=== PATIENT | male | born 1945 | race Caucasian/White ===

== ENCOUNTER → 2016-10-01 | Outpatient (CLI) | payer OTHER | LOC: MMPC 10:00 | PROVIDERS: ATTEND Specialist | DX: Z01.810 Encounter for preprocedural cardiovascular examination (principal); M16.11 Unilateral primary osteoarthritis, right hip; I25.10 Atherosclerotic heart disease of native coronary artery without angina pectoris; Z95.5 Presence of coronary angioplasty implant and graft; J44.9 Chronic obstructive pulmonary disease, unspecified; Z99.81 Dependence on supplemental oxygen; I35.8 Other nonrheumatic aortic valve disorders | CPT/HCPCS: 99213; G0463 ==

== ENCOUNTER 2016-10-25 11:26 | Emergency (ER) | payer OTHER ==
[2016-10-25] MEDS ORDERED: NORMAL SALINE 10 ML SYRINGE FLUSH IVP PRN (11:52)
[2016-10-25 12:02] VITALS: RESP 22; TEMP 97.2
[2016-10-25] MEDS ORDERED: LIDOCAINE HCL 2 % 10 ML JELLY URO-JECT TOPICAL ONE (12:03)
[2016-10-25 12:17] LABS: BASOPHILS # (AUTO) 0.01 10*3/UL; BASOPHILS % (AUTO) 0.2 % (0-1); EOSINOPHILS % (AUTO) 4.2 % (0-8); HEMATOCRIT 32.5 % (42.0-52.0); HEMOGLOBIN 10.2 g/dL (14.0-18.0); IMM GRAN % (AUTO) 0.2 % (0-5); IMM GRAN# (AUTO) 0.01 10*3/UL; LYMPHOCYTES # (AUTO) 0.97 10*3/uL; LYMPHOCYTES % (AUTO) 17.1 % (10-50); MEAN CORPUSCULAR HEMOGLOBIN 29.3 PG (27-31); MEAN CORPUSCULAR HGB CONC 31.4 g/dL (33-37); MEAN PLATELET VOLUME 7.6 FL (7.4-12.2); MONOCYTES # (AUTO) 0.68 10*3/UL (0.3-0.8); NEUTROPHILS # (AUTO) 3.75 10*3/UL; NEUTROPHILS % (AUTO) 66.3 % (50-80); RDW COEFFICIENT OF VARIATION 13.2 % (11.5-14.5); RED BLOOD COUNT 3.48 10^6/uL (4.70-6.10); WHITE BLOOD COUNT 5.66 10^3/uL (4.8-10.8)
[2016-10-25 12:19] LABS: PLATELET MORPHOLOGY COMMENT NORMAL MORPHOLOGY (NORM)
[2016-10-25 12:28] LABS: BILIRUBIN,TOTAL 0.5 mg/dL (0.3-1.2); BUN/CREATININE RATIO 12.85 (6-20); CALCIUM 8.9 mg/dL (8.7-10.7); CREATININE 0.7 mg/dL (0.70-1.50); POTASSIUM 4.3 meq/L (3.8-5.2); TOTAL PROTEIN 6.4 g/dL (6.1-8.0)
[2016-10-25 13:37] LABS: BILIRUBIN,URINE NEGATIVE (NEG); CLARITY,URINE CLEAR (CLEAR); GLUCOSE, URINE (UA) NEGATIVE (NEG); LEUKOCYTE ESTERASE ,URINE NEGATIVE (NEG); NITRATE,URINE NEGATIVE (NEG); OCCULT BLOOD,URINE NEGATIVE (NEG); PROTEIN,URINE NEGATIVE (NEG); UROBILINOGEN,URINE 0.2 EU/dL (0.2)
[2016-10-25 13:41] LABS: URINE SAMPLE TYPE CLEAN CATCH URINE
--- NOTE | 2016-10-26 01:42 | PDOC ---
Male Genitourinary Problem HPI - General Chief Complaint: Genitourinary Complaint Stated Complaint: NOT VOIDING Date Seen by Provider: 10/25/16 Time Seen by Provider: 11:33 Source: POSITIVE: Patient, Spouse Exam Limitations: POSITIVE: No limitations Nurse's Notes Reviewed & Considered: Yes - History of Present Illness Initial Comments: The patient is a 71-year-old male. Patient states that for the past 2 days, approximately, he has had difficulty urinating and he states that he has been "being just a little bit". He states he has a history of prostatic hypertrophy. He also has a history of Parkinson's disease and COPD. He thinks he is getting distended in the suprapubic area. No real abdominal pain. No fevers or chills. No costophrenic pain. No nausea, vomiting, dysuria, hematuria, melena, hematochezia or hematemesis. He states he has he urge to urinate, but has difficulty doing so. Body Location Affected: REPORTS: Abdomen Timing: REPORTS: Gradual Duration: >24 hours (48 hours, approximately) Severity: Moderate Quality: REPORTS: Pressure (Suprapubic pressure and distention) Context: DENIES: Drug Use, Lifting, Trauma, Recent Surgery, Other (please comment) Sexual History: DENIES: Non-Contributory, Homosexual, Unprotected [place], Known Exposure to STD, Other Associated Symptoms: REPORTS: Problems Urinating, Hesitancy, Small Amounts, Abdominal Pain (Suprapubic pressure). DENIES: Blood in Urine Similar Symptoms Previously: No Recent Care Received: REPORTS: Denies Any Prior Injuries Related to Current Complaint?: No - Patient Home Medications Home Medications: Home Medications Albuterol Sulfate [ALBUTEROL HFA] 2 inh PO QID PRN 09/11/11 Aspirin 1 tab PO DAILY 09/11/11 Calcium Carbonate/Vitamin D3 [Calcium 600 with Vit D Tab] 1 tab PO TID 09/11/11 Clopidogrel [Plavix] 1 tab PO DAILY 09/11/11 Nitroglycerin SL Tab [Nitrostat SL Tab] 0.4 mg SL Q5M PRN MDD 3 09/11/11 Simvastatin [Zocor] 40 mg PO BEDTIME 09/11/11 Terazosin HCl 5 mg PO BEDTIME 09/11/11 Tiotropium [place] [Spiriva] 1 inh INH DAILY@1900 09/11/11 Venlafaxine HCl 150 mg PO DAILY #90 08/10/12 Albuterol Sulfate 3 ml NEB QID 90 Days 05/12/13 Budesonide/Formoterol Fumarate [Symbicort 160-4.5 Mcg Inhaler] 2 puff INH BID 30 Days 10/20/13 Sennosides [Senna] 1 cap PO BID 30 Days 10/20/13 Metoprolol Tartrate Tab [Lopressor Tab] 25 mg PO BID 11/01/13 Ferrous Gluconate [Fergon] 324 mg PO BID 01/12/15 Guaifenesin [Mucus Relief] 600 mg PO DAILY 01/12/15 Multivitamin [Multi-Vitamin Daily] 1 each PO QD 30 Days NS 04/12/15 Isosorbide Mononitrate [Isosorbide Mononitrate Er] 30 mg PO DAILY #90 tab Polyeth Glycol 3350 Packet [Miralax Packet] 17 gm PO DAILY PRN 01/19/16 Gabapentin 1 tab PO TID tab 05/09/16 Hydrocodone/Acetaminophen [Hydrocodon-Acetaminophn 10-325] 1 tab PO QID PRN # 150 tab 07/31/16 - Patient Allergies Allergies/Adverse Reactions: Allergies Allergy/AdvReac Type Severity Reaction Status Date / Time No Known Drug Allergies Allergy NOT Verified 10/25/16 12:07 APPLICABLE PAIN CONTRACT AdvReac Unknown NOT Uncoded 10/25/16 12:07 APPLICABLE Past Medical History - heen HEENT History: Other (please comment) Additional HEENT History: WEARS GLASSES Cardiovascular History: CHF, CAD, Hyperlipidemia Additional Cardiovasular History: 3 stents 2005 Respiratory History: COPD, Pneumonia, Home Oxygen Use Additional Respiratory History: O2 @ 3.5l/nc Gastrointestinal History: GERD, Other (please comment) Additional Gastrointestinal History: chronic constipation Genitourinary History: Kidney Stones, Polycystic Kidney Disease, Other (please comment) Additional Genitourinary History: BPH Endocrine History: Denies History Musculoskeletal History: Other (please comment) Prosthesis or Implant: Yes (CARDIAC STENTS) Additional Musculoskeletal History: chronic pain: lumbar pain secondary to disc problems, hip that is deteriorating, 5 HERNIATED DISCS Neurological History: TIA, Parkinson's Blood Disorders: Denies History Psychiatric History: Depression, PTSD History of Sexually Transmitted Diseases: No Cancer History: Denies History In Past Year Been Physically Harmed or Verbally Threatened: No History of MDRO: No History of Other Communicable Diseases: No Tobacco Use: Never Smoker Alcohol Use: None Substance Use Type: None, Opiate Pain Medication Previous Surgical History: Yes Type / Date of Surgery: APPENDECTOMY/ CORONARY STENT X 3 IN 2006 Anesthesia Reactions: No Malignant Hyperthermia: No Family History of Malignant Hyperthermia: No Significant Family History: No pertinent family hx Past Medical History Reviewed: Reviewed - No Changes ROS - Limitations ROS Limitations: No Limitations Constitution: REPORTS: Denies Symptoms Cardiovascular: REPORTS: Denies Cardiac Symptoms Respiratory: REPORTS: Denies Resp Symptoms Neurological: REPORTS: Denies Neuro Symptoms Gastrointestinal: REPORTS: Denies GI Symptoms Endocrine: REPORTS: Denies Symptoms Musculoskeletal: REPORTS: Denies MS Symptoms Genitourinary: REPORTS: Difficulty Urinating Eyes: REPORTS: Denies Symptoms ENT: REPORTS: Denies Symptoms Skin: REPORTS: Denies Skin Symptoms Lympathic: REPORTS: Denies Lympathic Symptoms Immunologic: POSITIVE: Denies Symptoms Psychiatric: POSITIVE: Denies Psych Symptoms Male Genitourinary Exam - General Appearance General Appearance: POSITIVE: Alert, Cooperative, No Acute Distress, No Evidence of Trauma - Abdomen Abdomen: Soft: (All Quadrants), Normal Bowel Sounds: (All Quadrants), Denies Tenderness: (All Quadrants), No Splenomegaly: (All Quadrants), No Hepatomegaly: (All Quadrants), No Guarding: (All Quadrants), No Rebound: (All Quadrants), No Palpable Pulse: (All Quadrants), No Palpabale Mass: (All Quadrants) Additional Details: Abdominal examination shows bowel sounds be present. The bladder is palpably distended and he has some mild discomfort on firm palpation over the bladder. Bladder scan shows in excess of 476 mL of urine in the bladder. - Genital / Rectal Genitals: POSITIVE: Normal Inspection, Normal Palp. of Testicles, Circumcised - Neck Neck: POSITIVE: Normal Inspection, No Apparent Injury - Respiratory Respiratory: POSITIVE: No Respiratory Distress, Breath Sounds Normal, Chest Non- Tender - Cardiovascular Cardiovascular: POSITIVE: Regular Rate and Rhythm, Heart Sounds Normal, Equal Pulses, Strong Pulses Peripheral Pulses: Radial (R): 2+, Radial (L): 2+ - Back Back: POSITIVE: Normal Inspection - Extremities Extremity: Non-Tender: (All Extremities), Normal ROM: (All Extremities), Normal Inspection: (All Extremities) - Neurological / Psychological Neurological: POSITIVE: Oriented X3, recreation therapy director Normal As Tested, Motor Normal, Sensation Normal, 5, 6 - Skin Skin: POSITIVE: Intact, Normal For Race, Warm, Dry, No Rash Procedure - Additional Procedures Additional Procedures: Smith Catheter (Smith catheter placed without much difficulty with return of in excess of 500 mL of clear urine. Patient feels much better after ladders drained. Patient discharged with leg bag.) Images - Complete Complete: 1 - Bladder distention Male Genitourinary Progress - Results Reviewed by me Lab Results Reviewed: Yes Lab Results: Laboratory Results 10/25/16 10/25/16 Range/Units 12:14 12:52 WBC 5.66 (4.8-10.8) 10^3/uL RBC 3.48 L (4.70-6.10) 10^6/uL Hgb 10.2 L (14.0-18.0) g/dL Hct 32.5 L (42.0-52.0) % MCV 93.4 H (80-90) FL MCH 29.3 (27-31) PG MCHC 31.4 L (33-37) g/dL RDW Std Deviation 43.5 (39-50) fL RDW Coeff of Robert 13.2 (11.5-14.5) % Plt Count 255 (140-350) 10*3/uL MPV 7.6 (7.4-12.2) FL Immature Gran % (Auto) 0.2 (0-5) % Neut % (Auto) 66.3 (50-80) % Lymph % (Auto) 17.1 (10-50) % [place] % (Auto) 12.0 (5-15) % Eos % (Auto) 4.2 (0-8) % Baso % (Auto) 0.2 (0-1) % Immature Gran # (Auto) 0.01 10*3/UL Neut # (Auto) 3.75 10*3/UL Lymph # (Auto) 0.97 10*3/uL [place] # (Auto) 0.68 (0.3-0.8) 10*3/UL Eos # (Auto) 0.24 10*3/UL Baso # (Auto) 0.01 10*3/UL WBC Morphology Comment Normal morphology (NORM) Plt Morphology Comment Normal morphology (NORM) RBC Morph Comment Normal morphology (NORM) Sodium 140 (135-145) meq/L Potassium 4.3 (3.8-5.2) meq/L Chloride 102 (98-112) meq/L Carbon Dioxide 29 (23-33) meq/L Anion Gap 9 (5-20) BUN 9 (7-22) mg/dL Creatinine 0.7 (0.70-1.50) mg/dL Estimated GFR (>60 ml/min/1.73m(2)) BUN/Creatinine Ratio 12.85 (6-20) Glucose 78 (78-110) mg/dL Calculated Osmolality 287.0 (267-292) mOsm/kg Calcium 8.9 (8.7-10.7) mg/dL Total Bilirubin 0.5 (0.3-1.2) mg/dL AST 28 (21-57) IU/L ALT 23 (21-72) IU/L Alkaline Phosphatase 58 (38-126) IU/L Total Protein 6.4 (6.1-8.0) g/dL Albumin 3.6 (3.5-4.8) g/dL Globulin 2.8 (2.50-4.10) g/dL Albumin/Globulin Ratio 1.20 L (1.3-2.0) mg/g Ur Collection Type Clean catch urine Urine Color Yellow Urine Clarity Clear (CLEAR) Urine pH 6.0 (5.0-8.5) Ur Specific [place] 1.010 (1.005-1.030) Urine Protein Negative (NEG) mg/dl Urine Glucose (UA) Negative (NEG) mg/dL Urine Ketones Negative (NEG) Urine Occult Blood Negative (NEG) Urine Nitrate Negative (NEG) Urine Bilirubin Negative (NEG) Urine Urobilinogen 0.2 (0.2) EU/dL Ur Leukocyte Esterase Negative (NEG) Ur Culture Indicated? Culture not set - Patient's Progress Pain Medication Addressed: POSITIVE: Not Applicable School/Work Release Addressed: POSITIVE: Not Applicable Re-Examine Time:: 14:00 Re-Examine Comment: Patient feels much better after acute urinary retention relieved Status: POSITIVE: Improved, Re-Examined - Consult Counseled: POSITIVE: Patient, Family, RE: Lab Results, RE: DX, RE: Need for F/U Patient Care Time - Estimated PCT Patient Care Time (In Minutes): 40 Vital Signs - VS Reviewed Vital Signs Reviewed: Yes Discharge Clinical Impression: Acute urinary retention Discharge Disposition: Discharged to Home Condition: Good Patient Instructions Given at Discharge: Urinary Retention in Men (ED) Additional Instructions: You had acute urinary retention, probably due to prosthetic hypertrophy. Please keep the Smith catheter in place until Friday. Follow-up with Dr. Umanzor Friday, who will probably remove the catheter at that time. He may also give you a referral to urology. Continue your present medications. Return here anytime if condition worsens in any way. Follow Up With: CASSIE UMANZOR [Primary Care Provider] - (Instructions as above. Follow-up with Dr. Umanzor as above. Return here anytime if condition worsens in any way.)
== END 2016-10-25 15:05 | disposition home or self-care (01) ==
LOC: ER 11:26
DX: R33.8 Other retention of urine (principal)
CPT/HCPCS: 80053; 81003; 85025; 99282

== ENCOUNTER 2016-10-26 14:13 | Emergency (ER) | payer OTHER ==
[2016-10-26] MEDS ORDERED: LIDOCAINE HCL 2 % 10 ML JELLY URO-JECT TOPICAL ONE (14:24)
--- NOTE | 2016-10-26 14:30 | PDOC ---
Male Genitourinary Problem HPI - General Chief Complaint: Genitourinary Complaint Stated Complaint: URINARY RETENTION x2-3 DAYS Date Seen by Provider: 10/26/16 Time Seen by Provider: 14:25 Source: POSITIVE: Patient Exam Limitations: POSITIVE: No limitations Nurse's Notes Reviewed & Considered: Yes - History of Present Illness Initial Comments: Patient comes in because of urinary retention. Patient was seen in the emergency department yesterday with urinary retention. A Smith catheter was placed and he was sent home. He subsequently developed hematuria and came back to the emergency department last night. His Smith was at that time removed. Now he has return of his urinary retention and is unable to void. He denies any fever chills or sweats, nausea vomiting or diarrhea, no chest pain, shortness of breath, or cough. Body Location Affected: REPORTS: Abdomen Timing: REPORTS: Constant Duration: >24 hours Severity: Moderate Sexual History: REPORTS: Non-Contributory Associated Symptoms: REPORTS: Problems Urinating, Unable to Urinate Similar Symptoms Previously: Yes Recent Care Received: REPORTS: Recently Seen, Treated by MD Any Prior Injuries Related to Current Complaint?: No - Patient Home Medications Home Medications: Home Medications Albuterol Sulfate [ALBUTEROL HFA] 2 inh PO QID PRN 09/11/11 Aspirin 1 tab PO DAILY 09/11/11 Calcium Carbonate/Vitamin D3 [Calcium 600 with Vit D Tab] 1 tab PO TID 09/11/11 Clopidogrel [Plavix] 1 tab PO DAILY 09/11/11 Nitroglycerin SL Tab [Nitrostat SL Tab] 0.4 mg SL Q5M PRN MDD 3 09/11/11 Simvastatin [Zocor] 40 mg PO BEDTIME 09/11/11 Terazosin HCl 5 mg PO BEDTIME 09/11/11 Tiotropium [place] [Spiriva] 1 inh INH DAILY@1900 09/11/11 Venlafaxine HCl 150 mg PO DAILY #90 08/10/12 Albuterol Sulfate 3 ml NEB QID 90 Days 05/12/13 Budesonide/Formoterol Fumarate [Symbicort 160-4.5 Mcg Inhaler] 2 puff INH BID 30 Days 10/20/13 Sennosides [Senna] 1 cap PO BID 30 Days 10/20/13 Metoprolol Tartrate Tab [Lopressor Tab] 25 mg PO BID 11/01/13 Ferrous Gluconate [Fergon] 324 mg PO BID 01/12/15 Guaifenesin [Mucus Relief] 600 mg PO DAILY 01/12/15 Multivitamin [Multi-Vitamin Daily] 1 each PO QD 30 Days NS 04/12/15 Isosorbide Mononitrate [Isosorbide Mononitrate Er] 30 mg PO DAILY #90 tab Polyeth Glycol 3350 Packet [Miralax Packet] 17 gm PO DAILY PRN 01/19/16 Gabapentin 1 tab PO TID tab 05/09/16 Hydrocodone/Acetaminophen [Hydrocodon-Acetaminophn 10-325] 1 tab PO QID PRN # 150 tab 07/31/16 - Patient Allergies Allergies/Adverse Reactions: Allergies Allergy/AdvReac Type Severity Reaction Status Date / Time No Known Drug Allergies Allergy NOT Verified 10/26/16 14:19 APPLICABLE PAIN CONTRACT AdvReac Unknown NOT Uncoded 10/25/16 12:07 APPLICABLE Past Medical History - heen HEENT History: Other (please comment) Additional HEENT History: WEARS GLASSES Cardiovascular History: CHF, CAD, Hyperlipidemia Additional Cardiovasular History: 3 stents 2005 Respiratory History: COPD, Pneumonia, Home Oxygen Use Additional Respiratory History: O2 @ 3.5l/nc Gastrointestinal History: GERD, Other (please comment) Additional Gastrointestinal History: chronic constipation Genitourinary History: Kidney Stones, Polycystic Kidney Disease, Other (please comment) Additional Genitourinary History: BPH Endocrine History: Denies History Musculoskeletal History: Other (please comment) Prosthesis or Implant: Yes (CARDIAC STENTS) Additional Musculoskeletal History: chronic pain: lumbar pain secondary to disc problems, hip that is deteriorating, 5 HERNIATED DISCS Neurological History: TIA, Parkinson's Blood Disorders: Denies History Psychiatric History: Depression, PTSD History of Sexually Transmitted Diseases: No Cancer History: Denies History History of MDRO: No History of Other Communicable Diseases: No Alcohol Use: None Substance Use Type: None, Opiate Pain Medication Previous Surgical History: Yes Type / Date of Surgery: APPENDECTOMY/ CORONARY STENT X 3 IN 2006 Anesthesia Reactions: No Malignant Hyperthermia: No Significant Family History: No pertinent family hx ROS - Limitations ROS Limitations: No Limitations Constitution: REPORTS: Denies Symptoms Cardiovascular: REPORTS: Denies Cardiac Symptoms Respiratory: REPORTS: Denies Resp Symptoms Neurological: REPORTS: Denies Neuro Symptoms Gastrointestinal: REPORTS: Denies GI Symptoms Endocrine: REPORTS: Denies Symptoms Musculoskeletal: REPORTS: Denies MS Symptoms Genitourinary: REPORTS: Difficulty Urinating (Urinary retention.) Eyes: REPORTS: Denies Symptoms ENT: REPORTS: Denies Symptoms Skin: REPORTS: Denies Skin Symptoms Lympathic: REPORTS: Denies Lympathic Symptoms Immunologic: POSITIVE: Denies Symptoms Psychiatric: POSITIVE: Denies Psych Symptoms Male Genitourinary Exam - General Appearance General Appearance: POSITIVE: Alert, Cooperative, No Acute Distress, No Evidence of Trauma - Abdomen Abdomen: Soft: (All Quadrants), Normal Bowel Sounds: (All Quadrants), Denies Tenderness: (All Quadrants) - HEENT HEENT: POSITIVE: Head Inspection Nml, Eyes Inspection Nml, Ears Inspection Nml, Nose Inspection Nml, PERRL, EOMI - Neck Neck: POSITIVE: Normal Inspection - Respiratory Respiratory: POSITIVE: No Respiratory Distress - Extremities Extremity: Normal ROM: (All Extremities), Normal Inspection: (All Extremities) - Neurological / Psychological Neurological: POSITIVE: Affect Apporpriate - Skin Skin: POSITIVE: Intact, Normal For Race, Warm, Dry, No Rash Male Genitourinary Progress - Patient's Progress Status: POSITIVE: Improved MDM / ED Course: Patient was examined. An indwelling Smith catheter was placed with good urine return. No hematuria noted. Assessment: Urinary retention. Plan: Discharge home with a indwelling urinary catheter and follow-up with his primary care physician. - Consult Counseled: POSITIVE: Patient, Family, RE: DX, RE: Need for F/U Patient Care Time - Estimated PCT Patient Care Time (In Minutes): 10 Vital Signs - VS Reviewed Vital Signs Reviewed: Yes Discharge Clinical Impression: Urinary retention Discharge Disposition: Discharged to Home Condition: Stable Patient Instructions Given at Discharge: Urinary Retention in Men (ED) Follow Up With: CASSIE UMANZOR [Primary Care Provider] -
[2016-10-26 15:02] VITALS: RESP 18; TEMP 97
== END 2016-10-26 14:53 | disposition home or self-care (01) ==
LOC: ER 14:13
DX: R33.9 Retention of urine, unspecified (principal); N40.0 Benign prostatic hyperplasia without lower urinary tract symptoms
CPT/HCPCS: 99282

== ENCOUNTER → 2016-11-02 | Outpatient (CLI) | payer OTHER | LOC: LAB 14:28 | PROVIDERS: ATTEND Internal Medicine | DX: N40.1 Benign prostatic hyperplasia with lower urinary tract symptoms (principal); R33.9 Retention of urine, unspecified; Z12.5 Encounter for screening for malignant neoplasm of prostate | CPT/HCPCS: 36415; G0103 ==

== ENCOUNTER 2016-11-04 11:56 | Emergency (ER) | payer OTHER ==
[2016-11-04 12:39] VITALS: RESP 22; TEMP 97.5
--- NOTE | 2016-11-04 14:10 | PDOC ---
Male Genitourinary Problem HPI - General Chief Complaint: General Medical Stated Complaint: DIAZ BAG LEAKING Date Seen by Provider: 11/04/16 Time Seen by Provider: 12:05 Source: POSITIVE: Patient, Spouse, Old records Exam Limitations: POSITIVE: No limitations Nurse's Notes Reviewed & Considered: Yes - History of Present Illness Initial Comments: The patient is a 71-year-old male. reports that the patient was seen in the emergency room approximately 10 days ago for urinary retention and Diaz catheter has been placed at that time. He has since followed up with his primary care provider and he was scheduled to see a urologist in [place] today, but was not able to do so because the roads to [place] are closed due to inclement weather. Since the catheter has been placed several days ago he has been noted to have some grossly bloody urine in the Diaz bag. states that the Diaz bag began leaking today. also states that the patient is not circumcised and since placement of the Diaz catheter his foreskin has not been able to be pulled over the head of the penis and the foreskin has been stuck in the retracted position. Patient denies any penile pain except for some "tightness"to the head of the penis and glans. Patient's urology appointment has been rescheduled for the day after tomorrow. The leg bag has been leaking from the bottom of the bag. No fevers or chills. No abdominal or suprapubic discomfort. No chest pain or any other symptoms. Body Location Affected: REPORTS: Genitalia (As above) Timing: REPORTS: Constant Duration: >24 hours Severity: Mild Quality: REPORTS: "Pain" (Some tightness to the head of the penis and glans; has not been able to pull retracted foreskin back over the head of the penis.) Context: REPORTS: Other (please comment) (Recently had Diaz catheter placed for urine retention). DENIES: Drug Use, Lifting, Trauma, Recent Surgery Sexual History: REPORTS: Other (As above) Associated Symptoms: REPORTS: Pain (2 head of penis and glans), Blood in Urine ( Blood in urine from Diaz catheter), Penile Pain (As above), Penile Swelling ( Foreskin swollen), Cannot Replace Foreskin Similar Symptoms Previously: No Recent Care Received: REPORTS: Recently Seen, Treated by MD (As above) Any Prior Injuries Related to Current Complaint?: No - Patient Home Medications Home Medications: Home Medications Albuterol Sulfate [ALBUTEROL HFA] 2 inh PO QID PRN 09/11/11 Aspirin 1 tab PO DAILY 09/11/11 Calcium Carbonate/Vitamin D3 [Calcium 600 with Vit D Tab] 1 tab PO TID 09/11/11 Clopidogrel [Plavix] 1 tab PO DAILY 09/11/11 Nitroglycerin SL Tab [Nitrostat SL Tab] 0.4 mg SL Q5M PRN MDD 3 09/11/11 Simvastatin [Zocor] 40 mg PO BEDTIME 09/11/11 Terazosin HCl 5 mg PO BEDTIME 09/11/11 Tiotropium [place] [Spiriva] 1 inh INH DAILY@1900 09/11/11 Venlafaxine HCl 150 mg PO DAILY #90 08/10/12 Albuterol Sulfate 3 ml NEB QID 90 Days 05/12/13 Budesonide/Formoterol Fumarate [Symbicort 160-4.5 Mcg Inhaler] 2 puff INH BID 30 Days 10/20/13 Sennosides [Senna] 1 cap PO BID 30 Days 10/20/13 Metoprolol Tartrate Tab [Lopressor Tab] 25 mg PO BID 11/01/13 Ferrous Gluconate [Fergon] 324 mg PO BID 01/12/15 Guaifenesin [Mucus Relief] 600 mg PO DAILY 01/12/15 Multivitamin [Multi-Vitamin Daily] 1 each PO QD 30 Days NS 04/12/15 Isosorbide Mononitrate [Isosorbide Mononitrate Er] 30 mg PO DAILY #90 tab Polyeth Glycol 3350 Packet [Miralax Packet] 17 gm PO DAILY PRN 01/19/16 Gabapentin 1 tab PO TID tab 05/09/16 Hydrocodone/Acetaminophen [Hydrocodon-Acetaminophn 10-325] 1 tab PO QID PRN # 150 tab 10/30/16 - Patient Allergies Allergies/Adverse Reactions: Allergies Allergy/AdvReac Type Severity Reaction Status Date / Time No Known Drug Allergies Allergy NOT Verified 11/04/16 12:24 APPLICABLE PAIN CONTRACT AdvReac Unknown NOT Uncoded 11/04/16 12:24 APPLICABLE Past Medical History - heen HEENT History: Other (please comment) Additional HEENT History: WEARS GLASSES Cardiovascular History: CHF, CAD, Hyperlipidemia Additional Cardiovasular History: 3 stents 2005 Respiratory History: COPD, Pneumonia, Home Oxygen Use Additional Respiratory History: O2 @ 3.5l/nc Gastrointestinal History: GERD, Other (please comment) Additional Gastrointestinal History: chronic constipation Genitourinary History: Kidney Stones, Polycystic Kidney Disease, Other (please comment) Additional Genitourinary History: BPH. DAIZ CATH IN PLACE Endocrine History: Denies History Musculoskeletal History: Other (please comment) Prosthesis or Implant: Yes (CARDIAC STENTS) Additional Musculoskeletal History: chronic pain: lumbar pain secondary to disc problems, hip that is deteriorating, 5 HERNIATED DISCS Neurological History: TIA, Parkinson's Blood Disorders: Denies History Psychiatric History: Depression, PTSD History of Sexually Transmitted Diseases: No Cancer History: Denies History In Past Year Been Physically Harmed or Verbally Threatened: No History of MDRO: No History of Other Communicable Diseases: No Tobacco Use: Former Smoker Alcohol Use: None Substance Use Type: None, Opiate Pain Medication Previous Surgical History: Yes Type / Date of Surgery: APPENDECTOMY/ CORONARY STENT X 3 IN 2006 Anesthesia Reactions: No Malignant Hyperthermia: No Significant Family History: No pertinent family hx Past Medical History Reviewed: Reviewed - No Changes ROS - Limitations ROS Limitations: No Limitations Constitution: REPORTS: Denies Symptoms Cardiovascular: REPORTS: Denies Cardiac Symptoms Respiratory: REPORTS: Denies Resp Symptoms Neurological: REPORTS: Denies Neuro Symptoms Gastrointestinal: REPORTS: Denies GI Symptoms Endocrine: REPORTS: Denies Symptoms Musculoskeletal: REPORTS: Denies MS Symptoms Genitourinary: REPORTS: Hematuria (As above; grossly bloody urine in Diaz catheter and leg bag), Other (Foreskin cannot be replaced over head of penis and foreskin remains retracted behind the head of the penis him swelling of the foreskin.) Eyes: REPORTS: Denies Symptoms ENT: REPORTS: Denies Symptoms Skin: REPORTS: Denies Skin Symptoms Lympathic: REPORTS: Denies Lympathic Symptoms Immunologic: POSITIVE: Denies Symptoms Psychiatric: POSITIVE: Denies Psych Symptoms Male Genitourinary Exam - General Appearance General Appearance: POSITIVE: Alert, Cooperative, No Acute Distress, No Evidence of Trauma - Abdomen Abdomen: Soft: (All Quadrants), Normal Bowel Sounds: (All Quadrants), Denies Tenderness: (All Quadrants), No Splenomegaly: (All Quadrants), No Hepatomegaly: (All Quadrants), No Guarding: (All Quadrants), No Rebound: (All Quadrants), No Palpable Pulse: (All Quadrants), No Palpabale Mass: (All Quadrants), No Distention: (All Quadrants), No Rigidity: (All Quadrants) - Genital / Rectal Genitals: POSITIVE: Uncircumcised, Other (Paraphimosis. Diaz catheter is in place was some bloody urine; some leakage is noted from the base of the leg bag , and the leg bag was replaced.). NEGATIVE: Testicular Tenderness, Epididymal Tenderness, Scrotal Swelling, Hernia Mass, Examined While Standing, Herpes-Like Lesion(s), Inguinal Lymphadenopathy, Hydrocele - Neck Neck: POSITIVE: Normal Inspection, No Apparent Injury - Respiratory Respiratory: POSITIVE: No Respiratory Distress, Breath Sounds Normal, Chest Non- Tender - Cardiovascular Cardiovascular: POSITIVE: Regular Rate and Rhythm, Heart Sounds Normal, Equal Pulses, Strong Pulses Peripheral Pulses: Radial (R): 2+, Radial (L): 2+ - Back Back: POSITIVE: Normal Inspection - Neurological / Psychological Neurological: POSITIVE: Oriented X3, television director Normal As Tested, Motor Normal, Sensation Normal, 5, 6 - Skin Skin: POSITIVE: Intact, Normal For Race, Warm, Dry, No Rash Procedure - Additional Procedures Additional Procedures: Other (Gentle constant pressure was placed over the distal half of the penis to reduce foreskin swelling. The foreskin was then gently pulled back over the head of the penis. The head of the penis was not blanching and there was no obvious vascular impairment. Following reduction of the paraphimosis gentle constant pressure was placed over the distal half of the penis to help reduce foreskin swelling. Patient tolerated the procedure well.) Male Genitourinary Progress - Patient's Progress Pain Medication Addressed: POSITIVE: Not Applicable School/Work Release Addressed: POSITIVE: Not Applicable Re-Examine Time:: 12:35 Re-Examine Comment: Paraphimosis successfully reduced. Foreskin swelling diminished markedly on discharge. No signs of penile ischemia. Leg bag replaced. Status: POSITIVE: Improved, Re-Examined - Consult Counseled: POSITIVE: Patient, RE: DX, RE: Need for F/U Patient Care Time - Estimated PCT Patient Care Time (In Minutes): 30 Vital Signs - Recent Vital Signs Vital Signs: Vital Signs (Last 8 hours) Temp Pulse Resp BP Pulse Ox 11/04/16 12:23 97.5 F 65 22 117/69 92 - VS Reviewed Vital Signs Reviewed: Yes Discharge Clinical Impression: Paraphimosis, Urinary retention with incomplete bladder emptying Discharge Disposition: Discharged to Home Condition: Stable Patient Instructions Given at Discharge: Urinary Retention in Men (ED), Acute Paraphimosis (ED) Additional Instructions: Make sure you draw your foreskin back over the head of the penis daily. Follow- up with urology for your urinary retention the day after tomorrow as is already arranged. Your leg bag on your Diaz catheter has been repaired. Please let us know if you have any further leakage or any other problems. Return anytime if your foreskin again becomes "stuck"behind the head of the penis. Return anytime if condition worsens in any way whatsoever. Follow Up With: CASSIE UMANZOR [Primary Care Provider] - (Instructions as above. Follow-up with urology as is already arranged. Return here anytime if condition worsens in any way whatsoever.)
== END 2016-11-04 12:46 | disposition home or self-care (01) ==
LOC: ER 11:56
DX: T83.038A Leakage of other urinary catheter, initial encounter (principal); R33.8 Other retention of urine; N47.2 Paraphimosis
CPT/HCPCS: 99282

== ENCOUNTER 2016-11-05 11:00 | Emergency (ER) | payer OTHER ==
[2016-11-05] MEDS ORDERED: Levofloxacin 750mg (Premix) 750 MG in Dextrose 1 BAG IV ONE (11:44)
[2016-11-05 12:11] VITALS: RESP 16; TEMP 97.6
[2016-11-05 12:14] LABS: BASOPHILS # (AUTO) 0.02 10*3/UL; BASOPHILS % (AUTO) 0.3 % (0-1); EOSINOPHILS % (AUTO) 2.8 % (0-8); HEMATOCRIT 29.6 % (42.0-52.0); HEMOGLOBIN 9.3 g/dL (14.0-18.0); IMM GRAN % (AUTO) 0 % (0-5); IMM GRAN# (AUTO) 0 10*3/UL; LYMPHOCYTES # (AUTO) 0.89 10*3/uL; LYMPHOCYTES % (AUTO) 11.9 % (10-50); MEAN CORPUSCULAR HEMOGLOBIN 29.2 PG (27-31); MEAN CORPUSCULAR HGB CONC 31.4 g/dL (33-37); MEAN PLATELET VOLUME 7.5 FL (7.4-12.2); MONOCYTES # (AUTO) 0.75 10*3/UL (0.3-0.8); NEUTROPHILS # (AUTO) 5.63 10*3/UL; RDW COEFFICIENT OF VARIATION 12.8 % (11.5-14.5); RED BLOOD COUNT 3.19 10^6/uL (4.70-6.10)
[2016-11-05 12:18] LABS: PLATELET MORPHOLOGY COMMENT NORMAL MORPHOLOGY (NORM)
--- NOTE | 2016-11-05 13:16 | PDOC ---
Male Genitourinary Problem HPI - General Chief Complaint: Genitourinary Complaint Stated Complaint: pain/drainage from reed catheter Date Seen by Provider: 11/05/16 Time Seen by Provider: 15:00 Source: POSITIVE: Patient - History of Present Illness Initial Comments: Patient is a very nice 71-year-old gentleman who unfortunately was recently diagnosed with urinary obstruction likely from his prostate. He had a Reed catheter placed and had been doing okay with that at home with a leg bag and was waiting for an appointment with a urologist when he developed a paraphimosis. He had some swelling and some discharge associated with this and discomfort. He was evaluated yesterday for this paraphimosis and had a very painful time getting that paraphimosis reduced. Once it was reduced he did feel a bit better and He also had a leak in his bag and this was all taken care of in the emergency department yesterday. Unfortunately today he's developed some increased swelling and tenderness around the glans of his penis also some increased discharge and some bloody material and clots in his catheter. - Patient Home Medications Home Medications: Home Medications Albuterol Sulfate [ALBUTEROL HFA] 2 inh PO QID PRN 09/11/11 Aspirin 1 tab PO DAILY 09/11/11 Calcium Carbonate/Vitamin D3 [Calcium 600 with Vit D Tab] 1 tab PO TID 09/11/11 Clopidogrel [Plavix] 1 tab PO DAILY 09/11/11 Nitroglycerin SL Tab [Nitrostat SL Tab] 0.4 mg SL Q5M PRN MDD 3 09/11/11 Simvastatin [Zocor] 40 mg PO BEDTIME 09/11/11 Terazosin HCl 5 mg PO BEDTIME 09/11/11 Tiotropium [place] [Spiriva] 1 inh INH DAILY@1900 09/11/11 Venlafaxine HCl 150 mg PO DAILY #90 08/10/12 Albuterol Sulfate 3 ml NEB QID 90 Days 05/12/13 Budesonide/Formoterol Fumarate [Symbicort 160-4.5 Mcg Inhaler] 2 puff INH BID 30 Days 10/20/13 Sennosides [Senna] 1 cap PO BID 30 Days 10/20/13 Metoprolol Tartrate Tab [Lopressor Tab] 25 mg PO BID 11/01/13 Ferrous Gluconate [Fergon] 324 mg PO BID 01/12/15 Guaifenesin [Mucus Relief] 600 mg PO DAILY 01/12/15 Multivitamin [Multi-Vitamin Daily] 1 each PO QD 30 Days NS 04/12/15 Isosorbide Mononitrate [Isosorbide Mononitrate Er] 30 mg PO DAILY #90 tab Polyeth Glycol 3350 Packet [Miralax Packet] 17 gm PO DAILY PRN 01/19/16 Gabapentin 1 tab PO TID tab 05/09/16 Hydrocodone/Acetaminophen [Hydrocodon-Acetaminophn 10-325] 1 tab PO QID PRN # 150 tab 10/30/16 - Patient Allergies Allergies/Adverse Reactions: Allergies Allergy/AdvReac Type Severity Reaction Status Date / Time No Known Drug Allergies Allergy NOT Verified 11/05/16 11:44 APPLICABLE PAIN CONTRACT AdvReac Unknown NOT Uncoded 11/05/16 11:44 APPLICABLE Past Medical History - heen HEENT History: Other (please comment) Additional HEENT History: WEARS GLASSES Cardiovascular History: CHF, CAD, Hyperlipidemia Additional Cardiovasular History: 3 stents 2005 Respiratory History: COPD, Pneumonia, Home Oxygen Use Additional Respiratory History: O2 @ 3.5l/nc Gastrointestinal History: GERD, Other (please comment) Additional Gastrointestinal History: chronic constipation Genitourinary History: Kidney Stones, Polycystic Kidney Disease, Other (please comment) Additional Genitourinary History: BPH Endocrine History: Denies History Musculoskeletal History: Other (please comment) Prosthesis or Implant: Yes (CARDIAC STENTS) Additional Musculoskeletal History: chronic pain: lumbar pain secondary to disc problems, hip that is deteriorating, 5 HERNIATED DISCS Neurological History: TIA, Parkinson's Blood Disorders: Denies History Psychiatric History: Depression, PTSD History of Sexually Transmitted Diseases: No Male Reproductive History: Denies History Cancer History: Denies History In Past Year Been Physically Harmed or Verbally Threatened: No History of MDRO: No History of Other Communicable Diseases: No Tobacco Use: Never Smoker Alcohol Use: None Substance Use Type: None, Opiate Pain Medication Previous Surgical History: Yes Type / Date of Surgery: APPENDECTOMY/ CORONARY STENT X 3 IN 2006 Anesthesia Reactions: No Malignant Hyperthermia: No Significant Family History: No pertinent family hx Past Medical History Reviewed: Reviewed - No Changes ROS - Limitations ROS Limitations: No Limitations Constitution: DENIES: Chills, Fever Cardiovascular: REPORTS: Denies Cardiac Symptoms Respiratory: REPORTS: Denies Resp Symptoms Neurological: REPORTS: Denies Neuro Symptoms Gastrointestinal: REPORTS: Denies GI Symptoms Male Genitourinary Exam - General Appearance General Appearance: POSITIVE: Alert, Cooperative, No Acute Distress - Abdomen Abdomen: Soft: (All Quadrants), Normal Bowel Sounds: (All Quadrants), Denies Tenderness: (All Quadrants) - Genital / Rectal Genitals: POSITIVE: Other (He does have some moderate swelling in his penis and foreskin and this isn't unretractable. He has some purulent appearing drainage at the meatus and at the opening of the foreskin. There is obvious red tinged blood in his catheter with a few clots. There appears to be some urinary leakage around the catheter today.) - HEENT HEENT: POSITIVE: Head Inspection Nml, Eyes Inspection Nml - Neck Neck: POSITIVE: Normal Inspection - Respiratory Respiratory: POSITIVE: No Respiratory Distress - Cardiovascular Cardiovascular: POSITIVE: Regular Rate and Rhythm - Neurological / Psychological Neurological: POSITIVE: Affect Apporpriate, Oriented X3 Male Genitourinary Progress - Results Reviewed by me Lab Results Reviewed: Yes Lab Results: Laboratory Results 11/05/16 Range/Units 12:11 WBC 7.50 (4.8-10.8) 10^3/uL RBC 3.19 L (4.70-6.10) 10^6/uL Hgb 9.3 L (14.0-18.0) g/dL Hct 29.6 L (42.0-52.0) % MCV 92.8 H (80-90) FL MCH 29.2 (27-31) PG MCHC 31.4 L (33-37) g/dL RDW Std Deviation 41.9 (39-50) fL RDW Coeff of Robert 12.8 (11.5-14.5) % Plt Count 247 (140-350) 10*3/uL MPV 7.5 (7.4-12.2) FL Immature Gran % (Auto) 0 (0-5) % Neut % (Auto) 75.0 (50-80) % Lymph % (Auto) 11.9 (10-50) % Lucas % (Auto) 10.0 (5-15) % Eos % (Auto) 2.8 (0-8) % Baso % (Auto) 0.3 (0-1) % Immature Gran # (Auto) 0 10*3/UL Neut # (Auto) 5.63 10*3/UL Lymph # (Auto) 0.89 10*3/uL Lucas # (Auto) 0.75 (0.3-0.8) 10*3/UL Eos # (Auto) 0.21 10*3/UL Baso # (Auto) 0.02 10*3/UL WBC Morphology Comment Normal morphology (NORM) Plt Morphology Comment Normal morphology (NORM) RBC Morph Comment Normal morphology (NORM) - Patient's Progress MDM / ED Course: This patient does appear to have a mild balanitis/foreskin infection. He has a normal white count benign vital signs him go to go ahead and give him an IV dose of Levaquin right now we flushed his catheter and got his catheter draining properly he does have an appointment with urologist tomorrow. I think it's in his best interest to make that appointment tomorrow and decide if any further antibiotic treatment as necessary also to have his recent urinary obstruction worked up and evaluated as well as his balanitis. I did take a culture of his discharge from the foreskin and penis which should be available for urology in the next couple days. Return here for further evaluation but all in all is doing better now that his catheter is flowing and that we have him on some coverage for the swelling redness and warmth in his penis. Patient Care Time - Estimated PCT Patient Care Time (In Minutes): 30 Vital Signs - Recent Vital Signs Vital Signs: Vital Signs (Last 8 hours) Temp Pulse Resp BP Pulse Ox 11/05/16 11:00 97.6 F 53 L 16 127/71 99 - VS Reviewed Vital Signs Reviewed: Yes Discharge Clinical Impression: Balanitis Problem with Reed catheter Qualifiers: Encounter type: initial encounter Qualifier Code: ([id number]) Unspecified complication of genitourinary prosthetic device, implant and graft, initial encounter Discharge Disposition: Discharged to Home Condition: Stable Patient Instructions Given at Discharge: Balanitis (ED), Reed Catheter Placement and Care (ED) Follow Up With: CASSIE UMANZOR [Primary Care Provider] -
== END 2016-11-05 14:06 | disposition home or self-care (01) ==
LOC: ER 11:00
DX: T83.84XA Pain due to genitourinary prosthetic devices, implants and grafts, initial encounter (principal); N48.1 Balanitis
CPT/HCPCS: 85025; 87070; 87075; 87077; 87186; 87205; 96365; 99282; 99283

== ENCOUNTER → 2016-12-09 | Outpatient (CLI) | payer OTHER ==
[2016-12-09 13:53] LABS: BILIRUBIN,URINE NEGATIVE (NEG); COLOR,URINE YELLOW; GLUCOSE, URINE (UA) NEGATIVE (NEG); NITRATE,URINE NEGATIVE (NEG); OCCULT BLOOD,URINE MODERATE (NEG); PROTEIN,URINE TRACE mg/dl (NEG); UROBILINOGEN,URINE 0.2 EU/dL (0.2)
[2016-12-09 14:00] LABS: BACTERIA,URINE MANY; CLARITY,URINE CLEAR (CLEAR); URINE SAMPLE TYPE CLEAN CATCH URINE; WBC,URINE >100
== END ==
LOC: MOB LAB 12:34
PROVIDERS: ATTEND Internal Medicine
DX: R30.0 Dysuria (principal); R82.99 Other abnormal findings in urine
CPT/HCPCS: 81001; 81003; 87088; 87205

== ENCOUNTER 2016-12-31 16:43 | Emergency (ER) | payer OTHER ==
--- NOTE | 2016-12-31 17:40 | PDOC ---
Male Genitourinary Problem HPI - General Chief Complaint: Genitourinary Complaint Stated Complaint: CATHETER NOT DRAINING SINCE YESTERDAY Date Seen by Provider: 12/31/16 Time Seen by Provider: 17:30 Source: POSITIVE: Patient, Spouse Exam Limitations: POSITIVE: No limitations Nurse's Notes Reviewed & Considered: Yes - History of Present Illness Initial Comments: Patient with an indwelling urinary catheter comes in because of urinary retention and obstruction of his urinary catheter. He denies any fever chills sweats, nausea vomiting or diarrhea, no rashes. He does have swelling of the foreskin. Body Location Affected: REPORTS: Abdomen Timing: REPORTS: Gradual Duration: Unknown Severity: Severe Quality: REPORTS: "Pain" Sexual History: REPORTS: Non-Contributory Associated Symptoms: REPORTS: Problems Urinating Similar Symptoms Previously: Yes Recent Care Received: REPORTS: Denies Any Prior Injuries Related to Current Complaint?: No - Patient Home Medications Home Medications: Home Medications Albuterol Sulfate [ALBUTEROL HFA] 2 inh PO QID PRN 09/11/11 Aspirin 1 tab PO DAILY 09/11/11 Calcium Carbonate/Vitamin D3 [Calcium 600 with Vit D Tab] 1 tab PO TID 09/11/11 Clopidogrel [Plavix] 1 tab PO DAILY 09/11/11 Nitroglycerin SL Tab [Nitrostat SL Tab] 0.4 mg SL Q5M PRN MDD 3 09/11/11 Simvastatin [Zocor] 40 mg PO BEDTIME 09/11/11 Terazosin HCl 10 mg PO BEDTIME 09/11/11 Tiotropium [place] [Spiriva] 1 inh INH DAILY@1900 09/11/11 Venlafaxine HCl 150 mg PO DAILY #90 08/10/12 Albuterol Sulfate 3 ml NEB QID 90 Days 05/12/13 Budesonide/Formoterol Fumarate [Symbicort 160-4.5 Mcg Inhaler] 2 puff INH BID 30 Days 10/20/13 Sennosides [Senna] 1 cap PO BID 30 Days 10/20/13 Metoprolol Tartrate Tab [Lopressor Tab] 25 mg PO BID 11/01/13 Ferrous Gluconate [Fergon] 324 mg PO BID 01/12/15 Guaifenesin [Mucus Relief] 600 mg PO DAILY 01/12/15 Multivitamin [Multi-Vitamin Daily] 1 each PO QD 30 Days NS 04/12/15 Isosorbide Mononitrate [Isosorbide Mononitrate Er] 30 mg PO DAILY #90 tab Polyeth Glycol 3350 Packet [Miralax Packet] 17 gm PO DAILY PRN 01/19/16 Gabapentin 1 tab PO TID tab 05/09/16 Hydrocodone/Acetaminophen [Hydrocodon-Acetaminophn 10-325] 1 tab PO QID PRN # 150 tab 10/30/16 Trihexyphenidyl HCl 2 tab PO BEDTIME 12/31/16 Trihexyphenidyl HCl 3 tab PO QAM 12/31/16 - Patient Allergies Allergies/Adverse Reactions: Allergies Allergy/AdvReac Type Severity Reaction Status Date / Time No Known Drug Allergies Allergy NOT Verified 12/31/16 17:52 APPLICABLE PAIN CONTRACT AdvReac Unknown NOT Uncoded 12/31/16 17:52 APPLICABLE Past Medical History - heen HEENT History: Other (please comment) Additional HEENT History: WEARS GLASSES Cardiovascular History: CHF, CAD, Hyperlipidemia Additional Cardiovasular History: 3 stents 2005 Respiratory History: COPD, Pneumonia, Home Oxygen Use Additional Respiratory History: O2 @ 3.5l/nc Gastrointestinal History: GERD, Other (please comment) Additional Gastrointestinal History: chronic constipation Genitourinary History: Kidney Stones, Polycystic Kidney Disease, Other (please comment) Additional Genitourinary History: BPH Endocrine History: Denies History Musculoskeletal History: Other (please comment) Prosthesis or Implant: Yes (CARDIAC STENTS) Additional Musculoskeletal History: chronic pain: lumbar pain secondary to disc problems, hip that is deteriorating, 5 HERNIATED DISCS Neurological History: TIA, Parkinson's Blood Disorders: Denies History Psychiatric History: Depression, PTSD History of Sexually Transmitted Diseases: No Cancer History: Denies History History of MDRO: No History of Other Communicable Diseases: No Alcohol Use: None Substance Use Type: None, Opiate Pain Medication Previous Surgical History: Yes Type / Date of Surgery: APPENDECTOMY/ CORONARY STENT X 3 IN 2006 Anesthesia Reactions: No Malignant Hyperthermia: No Significant Family History: No pertinent family hx ROS - Limitations ROS Limitations: No Limitations Constitution: REPORTS: Denies Symptoms Cardiovascular: REPORTS: Denies Cardiac Symptoms Respiratory: REPORTS: Denies Resp Symptoms Neurological: REPORTS: Denies Neuro Symptoms Gastrointestinal: REPORTS: Denies GI Symptoms Endocrine: REPORTS: Denies Symptoms Musculoskeletal: REPORTS: Denies MS Symptoms Genitourinary: REPORTS: Difficulty Urinating, Other (Urinary catheter is plugged and foreskin is edematous) Eyes: REPORTS: Denies Symptoms ENT: REPORTS: Denies Symptoms Skin: REPORTS: Denies Skin Symptoms Lympathic: REPORTS: Denies Lympathic Symptoms Immunologic: POSITIVE: Denies Symptoms Psychiatric: POSITIVE: Denies Psych Symptoms Male Genitourinary Exam - General Appearance General Appearance: POSITIVE: Alert, Cooperative, No Acute Distress, No Evidence of Trauma - Abdomen Abdomen: Soft: (All Quadrants), Normal Bowel Sounds: (All Quadrants), Denies Tenderness: (All Quadrants) - Genital / Rectal Genitals: POSITIVE: Normal Palp. of Testicles, Uncircumcised, Other (Edematous foreskin) - HEENT HEENT: POSITIVE: Head Inspection Nml, Eyes Inspection Nml, Ears Inspection Nml, Nose Inspection Nml, PERRL, EOMI - Neck Neck: POSITIVE: Normal Inspection, No Apparent Injury - Respiratory Respiratory: POSITIVE: No Respiratory Distress, Breath Sounds Normal, Chest Non- Tender - Cardiovascular Cardiovascular: POSITIVE: Regular Rate and Rhythm, Heart Sounds Normal - Extremities Extremity: Non-Tender: (All Extremities), Normal Inspection: (All Extremities), Pelvis Stable: (All Extremities) - Neurological / Psychological Neurological: POSITIVE: Affect Apporpriate, Oriented X3, Motor Normal, Sensation Normal - Skin Skin: POSITIVE: Intact, Normal For Race, Warm, Dry, No Rash Male Genitourinary Progress - Patient's Progress Status: POSITIVE: Improved MDM / ED Course: Patient was evaluated. An attempt was made to flush his indwelling catheter. This was unsuccessful. Catheter was withdrawn, and a new 18-gauge 30 mL balloon Smith catheter was placed without difficulty. Urine was obtained approximately 150 mL. Just prior to placement of catheter is noted that patient was once again leaking urine around his catheter in the bed was wet. It is unknown exactly how much urine was lost. Assessment: Urinary retention secondary to Smith failure. Next Plan: Discharge home status post Smith placement. - Consult Counseled: POSITIVE: Patient, Family, RE: DX, RE: Need for F/U Patient Care Time - Estimated PCT Patient Care Time (In Minutes): 20 Vital Signs - VS Reviewed Vital Signs Reviewed: Yes Discharge Clinical Impression: Smith catheter problem Discharge Disposition: Discharged to Home Condition: Stable Patient Instructions Given at Discharge: Urinary Retention in Men (ED)
[2016-12-31] MEDS ORDERED: [UNRECOGNIZED DRUG - OTHER] ONE (18:00)
[2016-12-31] MEDS ORDERED: WATER ONE (18:00)
[2016-12-31 18:37] VITALS: RESP 19; TEMP 98.4
== END 2016-12-31 19:27 | disposition home or self-care (01) ==
LOC: ER 16:43
DX: T83.098A Other mechanical complication of other urinary catheter, initial encounter (principal); N40.0 Benign prostatic hyperplasia without lower urinary tract symptoms; R33.8 Other retention of urine
CPT/HCPCS: 99282 ×2; A4216

== ENCOUNTER 2017-01-02 16:27 | Emergency (ER) | payer OTHER ==
--- NOTE | 2017-01-02 16:46 | PDOC ---
Altered Mental Status HPI - General Chief Complaint: Altered Mental Status Stated Complaint: confusion Date Seen by Provider: 01/02/17 Time Seen by Provider: 16:38 Source: POSITIVE: Patient, EMS Exam Limitations: POSITIVE: No limitations Nurse's Notes Reviewed & Considered: Yes EMS Report Reviewed & Considered: Verbal - History of Present Illness Initial Comments: Patient is brought in via EMS for altered mental status.: Out for EMS to assist because of the patient's altered mental status that has been ongoing for 2 days. told EMS that the patient was trying to hook his oxygen catheter up to his Smith catheter, and not acting right. EMS reports patient was sitting in urine, with a diaper in place and a Smith leg bag in place. This urine had migrated up his back. Patient was seen by me here in the emergency department one and a half days ago and at that time was in a normal state of mind with normal cognition. He had his Smith catheter changed without difficulty and had been discharged home. Presently patient is alert and oriented to person place and time. The patient's primary care provider's office called the emergency room today stating that the patient had fallen and injured his left hip with bruising. Patient denies having fallen and states that his left hip doesn't bother him and that only his chronic pain in his right hip as a problem. Character of AMS: REPORTS: Other (Presently no alteration of mentation.) Context: REPORTS: Other ( reported severe alteration in mentation for 2 days.) New Medications (if yes, list): No Patient Normals: REPORTS: Alert, Oriented x3 Recent Care Received: REPORTS: Recently Seen Any Prior Injuries Related to Current Complaint?: No - Patient Home Medications Home Medications: Home Medications Albuterol Sulfate [ALBUTEROL HFA] 2 inh PO QID PRN 09/11/11 Aspirin 1 tab PO DAILY 09/11/11 Calcium Carbonate/Vitamin D3 [Calcium 600 with Vit D Tab] 1 tab PO TID 09/11/11 Clopidogrel [Plavix] 1 tab PO DAILY 09/11/11 Nitroglycerin SL Tab [Nitrostat SL Tab] 0.4 mg SL Q5M PRN MDD 3 09/11/11 Simvastatin [Zocor] 40 mg PO BEDTIME 09/11/11 Terazosin HCl 10 mg PO BEDTIME 09/11/11 Tiotropium [place] [Spiriva] 1 inh INH DAILY@1900 09/11/11 Venlafaxine HCl 150 mg PO DAILY #90 08/10/12 Albuterol Sulfate 3 ml NEB QID 90 Days 05/12/13 Budesonide/Formoterol Fumarate [Symbicort 160-4.5 Mcg Inhaler] 2 puff INH BID 30 Days 10/20/13 Sennosides [Senna] 1 cap PO BID 30 Days 10/20/13 Metoprolol Tartrate Tab [Lopressor Tab] 25 mg PO BID 11/01/13 Ferrous Gluconate [Fergon] 324 mg PO BID 01/12/15 Guaifenesin [Mucus Relief] 600 mg PO DAILY 01/12/15 Multivitamin [Multi-Vitamin Daily] 1 each PO QD 30 Days NS 04/12/15 Isosorbide Mononitrate [Isosorbide Mononitrate Er] 30 mg PO DAILY #90 tab Polyeth Glycol 3350 Packet [Miralax Packet] 17 gm PO DAILY PRN 01/19/16 Gabapentin 1 tab PO TID tab 05/09/16 Hydrocodone/Acetaminophen [Hydrocodon-Acetaminophn 10-325] 1 tab PO QID PRN # 150 tab 10/30/16 Trihexyphenidyl HCl 2 tab PO BEDTIME 12/31/16 Trihexyphenidyl HCl 3 tab PO QAM 12/31/16 Ciprofloxacin HCl [Cipro] 1 tab PO BID #14 tab 01/01/17 Finasteride 5 mg PO BEDTIME 01/02/17 - Patient Allergies Allergies/Adverse Reactions: Allergies Allergy/AdvReac Type Severity Reaction Status Date / Time No Known Drug Allergies Allergy NOT Verified 01/02/17 16:37 APPLICABLE PAIN CONTRACT AdvReac Unknown NOT Uncoded 01/02/17 16:37 APPLICABLE Past Medical History - heen HEENT History: Other (please comment) Additional HEENT History: WEARS GLASSES Cardiovascular History: CHF, CAD, Hyperlipidemia Additional Cardiovasular History: 3 stents 2005 Respiratory History: COPD, Pneumonia, Home Oxygen Use Additional Respiratory History: O2 @ 3.5l/nc Gastrointestinal History: GERD, Other (please comment) Additional Gastrointestinal History: chronic constipation Genitourinary History: Kidney Stones, Polycystic Kidney Disease, Other (please comment) Additional Genitourinary History: BPH Endocrine History: Denies History Musculoskeletal History: Other (please comment) Prosthesis or Implant: Yes (CARDIAC STENTS) Additional Musculoskeletal History: chronic pain: lumbar pain secondary to disc problems, hip that is deteriorating, 5 HERNIATED DISCS Neurological History: TIA, Parkinson's Blood Disorders: Denies History Psychiatric History: Depression, PTSD History of Sexually Transmitted Diseases: No Cancer History: Denies History History of MDRO: No History of Other Communicable Diseases: No Alcohol Use: None Substance Use Type: None, Opiate Pain Medication Previous Surgical History: Yes Type / Date of Surgery: APPENDECTOMY/ CORONARY STENT X 3 IN 2006 Anesthesia Reactions: No Malignant Hyperthermia: No Significant Family History: No pertinent family hx ROS - Limitations ROS Limitations: No Limitations Constitution: REPORTS: Denies Symptoms Cardiovascular: REPORTS: Denies Cardiac Symptoms Respiratory: REPORTS: Denies Resp Symptoms Neurological: REPORTS: Denies Neuro Symptoms Gastrointestinal: REPORTS: Denies GI Symptoms Endocrine: REPORTS: Denies Symptoms Musculoskeletal: REPORTS: Denies MS Symptoms Genitourinary: REPORTS: Denies Symptoms Eyes: REPORTS: Denies Symptoms ENT: REPORTS: Denies Symptoms Skin: REPORTS: Denies Skin Symptoms Lympathic: REPORTS: Denies Lympathic Symptoms Immunologic: POSITIVE: Denies Symptoms Psychiatric: POSITIVE: Denies Psych Symptoms Altered Mental Physical Exam - General Appearance General Appearance: POSITIVE: Alert, Cooperative, No Acute Distress, No Evidence of Trauma - HEENT HEENT: POSITIVE: Head Inspection Nml, Eyes Inspection Nml, Ears Inspection Nml, Nose Inspection Nml, PERRL, EOMI - Pupil Size Pupil Size: 4 mm: Bilateral - Neuro/Psych Neurological: POSITIVE: Denies Neuro Symptoms Cranial Nerves: POSITIVE: Normal As Tested, No Evidence of Acute CVA Cerebellar: POSITIVE: Normal As Tested Peripheral Exam: POSITIVE: No Motor Deficits, No Sensory Deficits - Neck Neck: POSITIVE: Supple, Non Tender - Respiratory Respiratory: POSITIVE: No Respiratory Distress, Breath Sounds Normal - Cardiovascular CVS: POSITIVE: Regular Rate and Rhythm, Heart Sounds Normal - Abdomen Abdomen: Soft: (All Quadrants), Normal Bowel Sounds: (All Quadrants), Denies Tenderness: (All Quadrants) - Skin Skin: POSITIVE: Normal for Race, No Rash, Warm, Dry, Other (small 2x4 cm bruise over T8) - Extremities Extremity: Non-Tender: (All Extremities) (no bruising on his bilateral hips. Lipoma noted left posterior hip), Normal ROM: (LLE), (LUE), (RUE), Normal Inspection: (All Extremities), Pelvis Stable: (All Extremities) Additional Extremities Details: Crepitus palpated in his right hip and is unchanged from previous. Altered Mental Status - Results Reviewed By Me Xrays/CTs/US Reviewed: Yes Lab Results Reviewed: Yes - Patient's Progress Pain Medication Addressed: POSITIVE: Not Applicable Re-Examine Time:: 18:53 Status: POSITIVE: Improved MDM / ED Course: Patient was examined. X-ray of his back was obtained. He had no complaints of pain, no evidence of altered mental status. Findings: Thoracic spine x-ray shows a T7 compression fracture. Assessment: Normal mental assessment. Thoracic spine compression fracture. Plan: Discharge home, follow-up with primary care physician. DFS has been contacted to go by the home and evaluate patient in home care. DFS will see the patient's home tomorrow. - Consult Counseled: POSITIVE: Patient, Family, RE: Radiology Results, RE: DX Patient Care Time - Estimated PCT Patient Care Time (In Minutes): 30 Vital Signs - Recent Vital Signs Vital Signs: Vital Signs (Last 8 hours) Temp Pulse Resp BP Pulse Ox 01/02/17 16:27 97.0 F 64 18 126/67 92 - VS Reviewed Vital Signs Reviewed: Yes Discharge Clinical Impression: Compression fracture Discharge Disposition: Discharged to Home Condition: Stable Patient Instructions Given at Discharge: Vertebral Compression Fracture (ED)
[2017-01-02 17:04] VITALS: RESP 18; TEMP 97
--- NOTE | 2017-01-02 17:50 | DI ---
XR T-SPINE 2VW,01/02/2017 4:37 PM: Clinical History: Pain. Previous Exam: None at this facility. Findings: Multiple views of the thoracic spine are obtained, and demonstrate a compression fracture of the thor acic spine involving the seventh thoracic level. There is mild cardiomegaly. The lungs appear clear. Impression: Compression deformity of the seventh thoracic vertebral body with at least 50% compression.
== END 2017-01-02 19:37 | disposition home or self-care (01) ==
LOC: ER 16:27
DX: S22.060A Wedge compression fracture of T7-T8 vertebra, initial encounter for closed fracture (principal); N40.0 Benign prostatic hyperplasia without lower urinary tract symptoms; M25.552 Pain in left hip; W18.39XA Other fall on same level, initial encounter
CPT/HCPCS: 72070; 81001; 87077; 87088; 87185; 87186; 99282

== ENCOUNTER → 2017-01-02 | Outpatient (CLI) | payer OTHER ==
[2017-01-02 08:29] LABS: BILIRUBIN,URINE NEGATIVE (NEG); COLOR,URINE YELLOW; GLUCOSE, URINE (UA) NEGATIVE (NEG); NITRATE,URINE NEGATIVE (NEG); OCCULT BLOOD,URINE LARGE (NEG); PROTEIN,URINE 30 mg/dl (NEG); UROBILINOGEN,URINE 0.2 mg/dL (0.2)
[2017-01-02 08:30] LABS: CLARITY,URINE CLEAR (CLEAR)
[2017-01-02 08:35] LABS: RBC,URINE 0-3 /hpf; SQUAMOUS EPITHELIAL CELL,UR RARE; URINE SAMPLE TYPE CLEAN CATCH URINE; WBC,URINE 20-25
[2017-01-02 08:36] LABS: BACTERIA,URINE FEW; URINE CRYSTALS FEW
== END ==
LOC: LAB 08:21
PROVIDERS: ATTEND Internal Medicine
DX: R41.82 Altered mental status, unspecified (principal); R82.99 Other abnormal findings in urine
CPT/HCPCS: 81001; 87077; 87088; 87185; 87186

== ENCOUNTER 2017-01-03 17:21 | Inpatient (IN) | payer OTHER ==
[2017-01-03] MEDS ORDERED: Sodium Chloride 0.9% 1,000 ML PRIMARY IV ONE (17:27)
[2017-01-03] MEDS ORDERED: NORMAL SALINE 10 ML SYRINGE FLUSH IVP PRN (17:27)
--- NOTE | 2017-01-03 17:44 | EKG ---
[address] [address] Measurements Intervals [place] Rate: 75 P: 57 HI: 191 QRS: 21 QRSD: 87 T: 61 QT: 378 QTc: 407 Interpretive Statements SINUS RHYTHM Compared to ECG 08/13/2016 14:42:01 No significant changes Electronically Signed On 01-04-17 10:29:21 MDT by Marco Noe [email or web address]
[2017-01-03 18:05] LABS: BASOPHILS # (AUTO) 0.01 10*3/UL; BASOPHILS % (AUTO) 0.2 % (0-1); EOSINOPHILS # (AUTO) 0.33 10*3/UL; EOSINOPHILS % (AUTO) 6.7 % (0-8); HEMATOCRIT 34.2 % (42.0-52.0); HEMOGLOBIN 10.6 g/dL (14.0-18.0); LYMPHOCYTES # (AUTO) 0.91 10*3/uL; MEAN CORPUSCULAR VOLUME 90.5 FL (80-90); MONOCYTES # (AUTO) 0.61 10*3/UL (0.3-0.8); MONOCYTES % (AUTO) 12.4 % (5-15); NEUTROPHILS # (AUTO) 3.05 10*3/UL; NEUTROPHILS % (AUTO) 62.2 % (50-80); RED BLOOD COUNT 3.78 10^6/uL (4.70-6.10)
[2017-01-03 18:18] LABS: PLATELET MORPHOLOGY COMMENT NORMAL MORPHOLOGY (NORM); RBC MORPHOLOGY COMMENT NORMAL MORPHOLOGY (NORM); WBC MORPHOLOGY COMMENT NORMAL MORPHOLOGY (NORM)
[2017-01-03 18:26] LABS: C-REACTIVE PROTEIN 3.2 mg/dL (0.0-0.9); MAGNESIUM 2.1 mg/dL (1.6-2.4)
--- NOTE | 2017-01-03 18:39 | PDOC ---
General Adult HPI - General Chief Complaint: General Medical Stated Complaint: here for admission Date Seen by Provider: 01/03/17 Time Seen by Provider: 17:40 Source: POSITIVE: Patient, EMS Nurse's Notes Reviewed & Considered: Yes EMS Report Reviewed & Considered: Verbal - History of Present Illness Initial Comment: The patient is a 71-year-old male who is brought to the emergency department by ambulance. It was apparently recommended by [facility] and the clinic that he come to the emergency room for evaluation and possible admission to the hospital. The patient has a known history of severe degenerative arthritis in his right hip. In addition he has an indwelling Smith catheter secondary to urinary retention secondary to prostate issues. He reports that he has fallen multiple times at home. He was seen here in the emergency room yesterday after a reported fall and was diagnosed with a compression fracture in T7. He reports that he fell again last night. He is complaining of pain in his lower back as well as pain in his right hip. He does have chronic right hip pain secondary to his arthritis. He currently denies headache, chest pain or abdominal pain. He does report generalized weakness. He denies fevers or chills and has not had any recent nausea or vomiting. Apparently [facility] had been contacted to evaluate his living situation and they did come to his home and evaluate him there. Apparently their recommendation was that he may not be appropriate for continued living in his home however I did not directly discuss this with DFS myself. After patient had been here his did arrive in the emergency department and I did obtain some further history from her. She reports that he has had multiple falls recently. She also reports that Dr. Logan had checked a urinalysis yesterday and noted that he had a urinary tract infection and started him on Cipro. She reports that he is often confused. He is not very mobile at home secondary to his right hip arthritis. She reports that he has been deteriorating over the past year. She reports that his appetite is fairly poor in that he has lost approximately 80 pounds since January of last year. Have you received a tetanus shot in the past 10 years?: Unknown - Patient Home Medications Home Medications: Home Medications Albuterol Sulfate [ALBUTEROL HFA] 2 inh PO QID PRN 09/11/11 Aspirin 1 tab PO DAILY 09/11/11 Calcium Carbonate/Vitamin D3 [Calcium 600 with Vit D Tab] 1 tab PO TID 09/11/11 Clopidogrel [Plavix] 1 tab PO DAILY 09/11/11 Nitroglycerin SL Tab [Nitrostat SL Tab] 0.4 mg SL Q5M PRN MDD 3 09/11/11 Simvastatin [Zocor] 40 mg PO BEDTIME 09/11/11 Terazosin HCl 10 mg PO BEDTIME 09/11/11 Tiotropium [place] [Spiriva] 1 inh INH DAILY@1900 09/11/11 Venlafaxine HCl 150 mg PO DAILY #90 08/10/12 Albuterol Sulfate 3 ml NEB QID 90 Days 05/12/13 Budesonide/Formoterol Fumarate [Symbicort 160-4.5 Mcg Inhaler] 2 puff INH BID 30 Days 10/20/13 Sennosides [Senna] 1 cap PO BID 30 Days 10/20/13 Metoprolol Tartrate Tab [Lopressor Tab] 25 mg PO BID 11/01/13 Ferrous Gluconate [Fergon] 324 mg PO BID 01/12/15 Guaifenesin [Mucus Relief] 600 mg PO DAILY 01/12/15 Multivitamin [Multi-Vitamin Daily] 1 each PO QD 30 Days NS 04/12/15 Isosorbide Mononitrate [Isosorbide Mononitrate Er] 30 mg PO DAILY #90 tab Polyeth Glycol 3350 Packet [Miralax Packet] 17 gm PO DAILY PRN 01/19/16 Gabapentin 1 tab PO TID tab 05/09/16 Hydrocodone/Acetaminophen [Hydrocodon-Acetaminophn 10-325] 1 tab PO QID PRN # 150 tab 10/30/16 Trihexyphenidyl HCl 2 tab PO BEDTIME 12/31/16 Trihexyphenidyl HCl 3 tab PO QAM 12/31/16 Ciprofloxacin HCl [Cipro] 1 tab PO BID #14 tab 01/01/17 Finasteride 5 mg PO BEDTIME 01/02/17 - Patient Allergies Allergies/Adverse Reactions: Allergies Allergy/AdvReac Type Severity Reaction Status Date / Time No Known Drug Allergies Allergy NOT Verified 01/03/17 21:59 APPLICABLE PAIN CONTRACT AdvReac Unknown NOT Uncoded 01/03/17 17:32 APPLICABLE Past Medical History - heen HEENT History: Other (please comment) Additional HEENT History: WEARS GLASSES Cardiovascular History: CHF, CAD, Hyperlipidemia Additional Cardiovasular History: 3 stents 2005 Respiratory History: COPD, Pneumonia, Home Oxygen Use Additional Respiratory History: O2 @ 3.5l/nc Gastrointestinal History: GERD, Other (please comment) Additional Gastrointestinal History: chronic constipation Genitourinary History: Kidney Stones, Polycystic Kidney Disease, Other (please comment) Additional Genitourinary History: BPH Endocrine History: Denies History Musculoskeletal History: Other (please comment) Prosthesis or Implant: Yes (CARDIAC STENTS) Additional Musculoskeletal History: chronic pain: lumbar pain secondary to disc problems, hip that is deteriorating, 5 HERNIATED DISCS Neurological History: TIA, Parkinson's Blood Disorders: Denies History Psychiatric History: Depression, PTSD History of Sexually Transmitted Diseases: No Cancer History: Denies History In Past Year Been Physically Harmed or Verbally Threatened: No History of MDRO: No History of Other Communicable Diseases: No Tobacco Use: Former Smoker Alcohol Use: None Substance Use Type: Opiate Pain Medication Previous Surgical History: Yes Type / Date of Surgery: APPENDECTOMY/ CORONARY STENT X 3 IN 2006 Anesthesia Reactions: No Malignant Hyperthermia: No Significant Family History: No pertinent family hx Past Medical History Reviewed: Reviewed - No Changes ROS Constitution: DENIES: Chills, Fever Cardiovascular: DENIES: Chest Pain Respiratory: REPORTS: Denies Resp Symptoms, Other (He does have COPD and is chronically on 3-1/2 L of oxygen) Neurological: REPORTS: Other (Generalized weakness). DENIES: Headache, Numbness , Weakness Gastrointestinal: DENIES: Abdominal Pain, Nausea, Vomitting, Diarrhea Musculoskeletal: REPORTS: Other (Right hip and low back pain) Genitourinary: REPORTS: Other (Chronic indwelling catheter that was changed here in the emergency department 3 or 4 days ago) Eyes: REPORTS: Denies Symptoms ENT: REPORTS: Denies Symptoms Skin: DENIES: Rash General Adult Exam - General Appearance General Appearance: POSITIVE: Alert, Cooperative, No Acute Distress - HEENT HEENT: POSITIVE: Head Inspection Nml, Eyes Inspection Nml, Ears Inspection Nml, Pharynx Inspect. Nml - Neck Neck: POSITIVE: Normal Inspection. NEGATIVE: Lymphadenopathy - Respiratory Respiratory: POSITIVE: No Respiratory Distress, Breath Sounds Normal - Cardiovascular Cardiovascular: POSITIVE: Regular Rate & Rhythm, No Murmur Peripheral Pulses: Dorsalis-pedis (R): 2+, Dorsalis-pedis (L): 2+ - Abdomen Abdomen: Soft: (All Quadrants), Denies Tenderness: (All Quadrants), No Distention: (All Quadrants) - Back Back: POSITIVE: Other (He does have tenderness in the lower thoracic upper lumbar spine) - Skin Skin: POSITIVE: Normal Color, No Rash - Extremities Extremity: Normal ROM: (All Extremities), Normal Inspection: (All Extremities) - Neurological / Psychological Neurological: POSITIVE: Oriented X3, Motor Normal, Sensation Normal General Adult Progress - Results Reviewed by me Xrays/CTs/US Reviewed by me: Yes Discussed with Radiologist: Yes Radiology Findings: CT scan of his head reveals no evidence of acute intracranial abnormality per radiologist. X-ray of the right hip reveals advanced degenerative disease with no obvious fracture. X-ray of the lumbar spine reveals an L1 compression fracture. X-ray of the cervical spine reveals significant degenerative changes with no obvious fracture. Lab Results:: Laboratory Results 01/03/17 01/03/17 01/03/17 Range/Units 17:27 17:28 17:29 WBC 4.91 (4.8-10.8) 10^3/uL RBC 3.78 L (4.70-6.10) 10^6/uL Hgb 10.6 L (14.0-18.0) g/dL Hct 34.2 L (42.0-52.0) % MCV 90.5 H (80-90) FL MCH 28.0 (27-31) PG MCHC 31.0 L (33-37) g/dL RDW Std Deviation 42.6 (39-50) fL RDW Coeff of Robert 13.3 (11.5-14.5) % Plt Count 263 (140-350) 10*3/uL MPV 8.0 (7.4-12.2) FL Immature Gran % (Auto) 0 (0-5) % Neut % (Auto) 62.2 (50-80) % Lymph % (Auto) 18.5 (10-50) % [place] % (Auto) 12.4 (5-15) % Eos % (Auto) 6.7 (0-8) % Baso % (Auto) 0.2 (0-1) % Immature Gran # (Auto) 0 10*3/UL Neut # (Auto) 3.05 10*3/UL Lymph # (Auto) 0.91 10*3/uL [place] # (Auto) 0.61 (0.3-0.8) 10*3/UL Eos # (Auto) 0.33 10*3/UL Baso # (Auto) 0.01 10*3/UL WBC Morphology Comment Normal morphology (NORM) Plt Morphology Comment Normal morphology (NORM) RBC Morph Comment Normal morphology (NORM) Sodium 141 (135-145) meq/L Potassium 4.2 (3.8-5.2) meq/L Chloride 100 (98-112) meq/L Carbon Dioxide 30 (23-33) meq/L Anion Gap 11 (5-20) BUN 12 (7-22) mg/dL Creatinine 0.7 (0.70-1.50) mg/dL Estimated GFR (>60 ml/min/1.73m(2)) BUN/Creatinine Ratio 17.14 (6-20) Glucose 117 H (78-110) mg/dL Calculated Osmolality 292.0 (267-292) mOsm/kg Calcium 9.0 (8.7-10.7) mg/dL Magnesium 2.1 (1.6-2.4) mg/dL Total Bilirubin 0.6 (0.3-1.2) mg/dL AST 22 (21-57) IU/L ALT 23 (21-72) IU/L Alkaline Phosphatase 81 (38-126) IU/L Total Creatine Kinase 60 (55-170) IU/L Troponin I < 0.012 (< 0.040) ng/mL C-Reactive Protein 3.2 H (0.0-0.9) mg/dL Total Protein 6.4 (6.1-8.0) g/dL Albumin 3.4 L (3.5-4.8) g/dL Globulin 3.0 (2.50-4.10) g/dL Albumin/Globulin Ratio 1.10 L (1.3-2.0) mg/g Ur Collection Type Clean catch urine Urine Color Yellow Urine Clarity Slightly cloudy (CLEAR) Urine pH 7.0 (5.0-8.5) Ur Specific [place] 1.010 (1.005-1.030) Urine Protein Negative (NEG) mg/dl Urine Glucose (UA) Negative (NEG) mg/dL Urine Ketones Negative (NEG) Urine Occult Blood Moderate H (NEG) Urine Nitrate Negative (NEG) Urine Bilirubin Negative (NEG) Urine Urobilinogen 0.2 (0.2) EU/dL Ur Leukocyte Esterase Moderate (NEG) Urine RBC 1-3 (NONE) /hpf Urine WBC 8-10 (NONE) Ur Squamous Epith Cells Rare (NONE) Ur Renal Epithelial Cell None (NONE) Urine Crystals None Urine Bacteria Moderate (NONE) Urine Casts None (NONE) Urine Mucus None (NONE) Urine Trichomonas None (NONE) Urine Yeast None (NONE) Ur Culture Indicated? Culture set EKG Interpreted/Reviewed By Me:: Yes EKG Interpretation:: POSITIVE: Normal Sinus Rhythm, Normal Rate, Normal ST/T, Other (There is a fair amount of artifact on his EKG is he has a difficult time holding still, no obvious ST segment or T-wave changes, normal sinus rhythm) - Patient's Progress MDM / ED Course: Current findings are discussed with the patient and his . His lumbar spine x-ray does reveal an L1 compression fracture in addition to the T7 compression fracture noted on his thoracic x-ray yesterday. His hip x-ray reveals advanced degenerative changes with no obvious fracture. CT scan of his head is normal. His urinalysis done yesterday did show 25-30 white blood cells and culture is pending. At this time the patient has multiple medical problems including COPD , coronary artery disease, Parkinson's and advanced osteoarthritis of the right hip. Overall he is not doing well at home. He currently has a urinary tract infection as well as multiple compression fractures likely related to recent falls. Decision is made to admit the patient to the hospital for treatment. The patient and his are in agreement with this plan. Dr. Landeros has agreed to admit the patient. - Consult Counseled: POSITIVE: Patient, Family, RE: Lab Results, RE: Radiology Results, RE : DX Patient Care Time - Estimated PCT Patient Care Time (In Minutes): 45 Vital Signs - Recent Vital Signs Vital Signs: Vital Signs (Last 8 hours) Temp Pulse Pulse Resp BP BP Pulse Ox 01/03/17 22:22 95 01/03/17 20:53 65 22 01/03/17 20:50 68 20 128/78 97 01/03/17 17:34 96.5 F L 80 18 111/77 97 - VS Reviewed Vital Signs Reviewed: Yes Discharge Clinical Impression: UTI (urinary tract infection), Compression fracture, Fall Discharge Disposition: Admit to Inpatient Condition: Fair Date Decision to Admit to Inpatient: 01/03/17 Time Decision to Admit to Inpatient: 20:00
[2017-01-03 18:56] LABS: BUN/CREATININE RATIO 17.14 (6-20); SERUM ALBUMIN 3.4 g/dL (3.5-4.8)
[2017-01-03] MEDS ORDERED: HYDROcodone-APAP 10 MG-325 MG TABLET PO ONE ×2 (19:37→19:41)
--- NOTE | 2017-01-03 19:39 | DI ---
XR C-SPINE 2-3 VW,01/03/2017 5:29 PM: Clinical History: Fall with neck pain Previous Exam: None at this facility. Findings: 3 views of the cervical spine are obtained, and demonstrate mild diffuse degenerative change and diff use osteopenia. Facet hypertrophy is noted. Endplate osteophyte formation is also noted. No fractures are seen however, the lower cervical spine is not imaged. The lung apices are clear. The mandible is unremarkable. Impression: Diffuse degenerative changes of the cervical spine without fractures.
--- NOTE | 2017-01-03 19:39 | DI ---
XR HIP COMPLETE MIN 2VW U/L,01/03/2017 5:29 PM: Clinical History: Status post fall Previous Exam: June 17, 2016 Findings: AP, frog-leg and crosstable lateral views of the right hip are obtained, and demonstrate advanced deg enerative changes of the right hip with sclerosis and eburnation. Subchondral cyst formation is also seen. A few peripheral vascular calcifications are noted. There is a large amount of dried stool throughout the rectum. Impression: Advanced degenerative osteoarthritis of the right hip otherwise unremarkable.
[2017-01-03 19:41] LABS: BILIRUBIN,URINE NEGATIVE (NEG); COLOR,URINE YELLOW; GLUCOSE, URINE (UA) NEGATIVE (NEG); NITRATE,URINE NEGATIVE (NEG); OCCULT BLOOD,URINE MODERATE (NEG); PROTEIN,URINE NEGATIVE (NEG); UROBILINOGEN,URINE 0.2 EU/dL (0.2)
[2017-01-03 19:56] LABS: BACTERIA,URINE MODERATE; CLARITY,URINE SLIGHTLY CLOUDY (CLEAR); SQUAMOUS EPITHELIAL CELL,UR RARE; URINE SAMPLE TYPE CLEAN CATCH URINE
[2017-01-03] MEDS ORDERED: Cefotaxime Inj 2 GM in Sodium Chloride 0.9% 100 ML IV SCH (20:15)
--- NOTE | 2017-01-03 21:43 | PDOC ---
History and Physical - History of Present Illness History of Present Illness: Is a very nice 75-year-old gentleman with past medical history significant for severe arthritis of the right hip was evaluated in the past for him to get this replaced was cleared by cardiology but the orthopedic surgeons in [place] of not the been able to see the patient yet. He also has an indwelling Smith catheter secondary to urinary retention and prostate enlargement was referred to the emergency room by his primary care physician in [facility] he sustained multiple falls at home with the lower back pain and right hip pain also his is not able to be taking care of him any longer and COUNTS INCLUDE 234 BEDS AT THE [facility] is not recommended that he continue living in his house. He also was found to have 2 compression fractures in his lower spine and T-spine patient also has a history of Parkinson's. His primary care physician is treating her for UTI with Cipro which was started yesterday Past Medical History Medical History: 1. Hypertension. 2. Coronary artery disease with previous stents in 2006, recent stress test showed mild apex ischemia that is likely not interventional. 3. COPD on oxygen, 3.5 L/m. 4. Chronic pain syndrome. 5. PTSD. 6. Osteoporosis. 7. BPH. 8. Strongly suspect tardive dyskinesia Surgical History: Appendectomy. Stents (coronary) Pertinent Family History: Does not know family history per my review of the medical records. Past Social History: Patient used to smoke. Is . Has children. He is not very active, with most of his exercising walking around his house. Does not drink alcohol. Tobacco Use: Former Smoker Substance Use Type: Opiate Pain Medication Medication / Allergies Home Medications: Home Medications Medication Instructions Recorded Confirmed Type Albuterol Sulfate [ALBUTEROL HFA] 2 inh PO QID PRN 09/11/11 01/03/17 History Aspirin 1 tab PO DAILY 09/11/11 01/03/17 History Calcium Carbonate/Vitamin D3 1 tab PO TID 09/11/11 01/03/17 History [Calcium 600 with Vit D Tab] Clopidogrel [Plavix] 1 tab PO DAILY 09/11/11 01/03/17 History Nitroglycerin SL Tab [Nitrostat 0.4 mg SL Q5M PRN MDD 3 09/11/11 01/03/17 History SL Tab] Simvastatin [Zocor] 40 mg PO BEDTIME 09/11/11 01/03/17 History Terazosin HCl 10 mg PO BEDTIME 09/11/11 01/03/17 History Tiotropium [place] [Spiriva] 1 inh INH DAILY@1900 09/11/11 01/03/17 History Venlafaxine HCl 150 mg PO DAILY #90 08/10/12 01/03/17 Clinic Albuterol Sulfate 3 ml NEB QID 90 Days 05/12/13 01/03/17 Clinic Budesonide/Formoterol Fumarate 2 puff INH BID 30 Days 10/20/13 01/03/17 History [Symbicort 160-4.5 Mcg Inhaler] Sennosides [Senna] 1 cap PO BID 30 Days 10/20/13 01/03/17 History Metoprolol Tartrate Tab 25 mg PO BID 11/01/13 01/03/17 History [Lopressor Tab] Ferrous Gluconate [Fergon] 324 mg PO BID 01/12/15 01/03/17 History Guaifenesin [Mucus Relief] 600 mg PO DAILY 01/12/15 01/03/17 History Multivitamin [Multi-Vitamin Daily] 1 each PO QD 30 Days NS 04/12/15 01/03/17 Clinic Isosorbide Mononitrate [Isosorbide 30 mg PO DAILY #90 tab 12/26/15 01/03/17 Clinic Mononitrate Er] Polyeth Glycol 3350 Packet 17 gm PO DAILY PRN 01/19/16 01/03/17 History [Miralax Packet] Gabapentin 1 tab PO TID tab 05/09/16 01/03/17 History Hydrocodone/Acetaminophen 1 tab PO QID PRN #150 tab 10/30/16 01/03/17 Clinic [Hydrocodon-Acetaminophn 10-325] Trihexyphenidyl HCl 2 tab PO BEDTIME 12/31/16 01/03/17 History Trihexyphenidyl HCl 3 tab PO QAM 12/31/16 01/03/17 History Ciprofloxacin HCl [Cipro] 1 tab PO BID #14 tab 01/01/17 01/03/17 Clinic Finasteride 5 mg PO BEDTIME 01/02/17 01/03/17 History Allergies/Adverse Reactions: Allergies Allergy/AdvReac Type Severity Reaction Status Date / Time No Known Drug Allergies Allergy NOT Verified 01/03/17 17:32 APPLICABLE PAIN CONTRACT AdvReac Unknown NOT Uncoded 01/03/17 17:32 APPLICABLE Review of Systems - Review of Systems All Systems: Reviewed & No Additional Complaints Except as Stated - Respiratory Respiratory: DENIES: Negative System Review, Cough, Sputum, Dyspnea At Rest, Dyspnea with Exertion, Pleuritic Pain, Hemoptysis, Wheezing, Other, See HPI - Cardiovascular Cardiovascular: DENIES: Negative System Review, Chest Pain, Edema, Syncope, Palpitations, Orthopnea, Paroxysmal Nocturnal Dyspnea, Other, See HPI - Gastrointestinal Gastrointestinal / Abdominal: REPORTS: Negative System Review - Musculoskeletal Musculoskeletal: REPORTS: Back Pain, Joint Pain - Hips Exam - General General Appearance: POSITIVE: No Acute Distress, Cooperative - Head Head Exam: POSITIVE: Normal Inspection, Normocephalic, Atraumatic - Eye Eye Exam: POSITIVE: PERRL, EOMI - Respiratory Respiratory Exam: POSITIVE: Clear to Auscultation - Bilaterally, Breathing Non Labored, Normal To Percussion - Cardiovascular Cardiovascular Exam: POSITIVE: RRR, No Murmur - GI/Abdominal GI/Abdominal Exam: POSITIVE: Normal Bowel Sounds, Non Tender, Soft - Extremities Extremities Exam: POSITIVE: No Clubbing Present, No Edema Present, No Cyanosis Present - Neurological Neurological Exam: POSITIVE: Alert, Oriented x 3, CN II-XII Intact, No Facial Droop Results - Labs CBC and BMP: 01/03/17 17:28 01/03/17 17:28 Assessment and Plan - Patient Problems (1) Chronic back pain Current Visit: No Status: Acute Qualifiers: Back pain location: low back pain (2) Coronary artery disease Current Visit: No Status: Chronic Qualifiers: Coronary Disease-Associated Artery/Lesion type: [place] artery [place] vs. transplanted heart: [place] heart Associated angina: without angina Qualified Description: Coronary artery disease involving [place] coronary artery of [place] heart without angina pectoris Qualifier Code(s): (I25.10) Atherosclerotic heart disease of [place] coronary artery without angina pectoris (3) Compression fracture Current Visit: No Status: Acute (4) DVT prophylaxis Current Visit: No Status: Acute (5) Fall Current Visit: No Status: Acute (6) UTI (urinary tract infection) Current Visit: Yes Status: Acute - Assessment / Plan Additional Assessment/Plan Details: #1 multiple falls secondary to most likely Parkinson's severe arthritis and right hip and back pain secondary to compression fractures was admitted the patient for hydration and pain control PTOT and case management for placement number #2 urinary tract infection start the patient on Claforan and start send urine for culture #3 urinary retention with the Smith catheter which the patient had on before admission #4 coronary artery disease continue usual home meds Patient is a DO NOT RESUSCITATE I asked him personally Photo / Body Diagrams - Uploaded Photos Uploaded Photos:
[2017-01-03] MEDS ORDERED: KETOROLAC 15 MG/1 ML VIAL ONE (21:44)
[2017-01-03] MEDS ORDERED: CALCIUM CARBONATE 500 MG (TUMS) CHEWABLE TABLET PO PRN (22:01)
[2017-01-03] MEDS ORDERED: Non-Formulary Drug (Gabapentin [Gabapentin] 1 TAB) PO SCH (22:01)
[2017-01-03] MEDS ORDERED: MAG HYDROX/AL HYDROX/SIMETH 30 ML SUSP PO PRN (22:01)
[2017-01-03] MEDS ORDERED: ONDANSETRON 4 MG/2 ML VIAL IVP PRN (22:01)
[2017-01-03] MEDS ORDERED: LIDOCAINE W/ SODIUM BICARB 0.5 ML SYR SUBD PRN (22:01)
[2017-01-03] MEDS ORDERED: BISACODYL 5 MG TABLET PO PRN (22:01)
[2017-01-03] MEDS: Metoprolol TARTRATE Tab 25 MG TAB PO SCH (23:14)
[2017-01-03] MEDS: FERROUS GLUCONATE 324 MG TABLET PO SCH (23:14)
[2017-01-03] MEDS: Terazosin Cap 5 MG CAP PO SCH (23:15)
[2017-01-03] MEDS ORDERED: GABAPENTIN 300 MG CAPSULE PO ONE (23:15)
[2017-01-03] MEDS: FINASTERIDE 5 MG TABLET PO SCH (23:15)
[2017-01-03] MEDS: Simvastatin Tab 40 MG TAB PO SCH (23:15)
[2017-01-03] MEDS: Lactated Ringers 1,000 ML PRIMARY IV SCH (23:16)
[2017-01-03] MEDS: GABAPENTIN 300 MG CAPSULE PO SCH (23:44)
[2017-01-03] MEDS: HYDROmorphone 2 MG/1 ML IVP PRN (23:46)
[2017-01-03] MEDS ORDERED: KETOROLAC 15 MG/1 ML VIAL IVP ONE (23:47)
[2017-01-04] MEDS: FORMOTEROL FUMARATE INH SCH (00:10)
[2017-01-04] MEDS: BUDESONIDE INH SCH (00:10)
[2017-01-04] MEDS: HYDROmorphone 2 MG/1 ML IVP PRN ×2 (06:08→12:23)
[2017-01-04] MEDS: HYDROcodone-APAP 5 MG -325 MG TABLET PO PRN (06:08)
[2017-01-04 06:14] LABS: BASOPHILS # (AUTO) 0.02 10*3/UL; BASOPHILS % (AUTO) 0.4 % (0-1); EOSINOPHILS # (AUTO) 0.42 10*3/UL; EOSINOPHILS % (AUTO) 8.4 % (0-8); HEMATOCRIT 31.4 % (42.0-52.0); HEMOGLOBIN 9.7 g/dL (14.0-18.0); LYMPHOCYTES # (AUTO) 1.39 10*3/uL; MEAN CORPUSCULAR HGB CONC 30.9 g/dL (33-37); MEAN CORPUSCULAR VOLUME 90.5 FL (80-90); MEAN PLATELET VOLUME 8.5 FL (7.4-12.2); MONOCYTES # (AUTO) 0.55 10*3/UL (0.3-0.8); NEUTROPHILS # (AUTO) 2.61 10*3/UL; NEUTROPHILS % (AUTO) 52.2 % (50-80); RED BLOOD COUNT 3.47 10^6/uL (4.70-6.10)
[2017-01-04 06:24] LABS: PLATELET MORPHOLOGY COMMENT NORMAL MORPHOLOGY (NORM); RBC MORPHOLOGY COMMENT NORMAL MORPHOLOGY (NORM); WBC MORPHOLOGY COMMENT NORMAL MORPHOLOGY (NORM)
[2017-01-04 06:32] LABS: BLOOD UREA NITROGEN 11 mg/dL (7-22); BUN/CREATININE RATIO 18.33 (6-20); CALCIUM 8.6 mg/dL (8.7-10.7)
[2017-01-04] MEDS ORDERED: Cefotaxime Inj 2 GM in Sodium Chloride 0.9% 100 ML IV SCH (08:00)
[2017-01-04] MEDS: ENOXAPARIN SODIUM 40 MG/0.4 ML SYRINGE SUBCUT SCH (08:38)
[2017-01-04] MEDS: CLOPIDOGREL 75 MG TABLET PO SCH (08:41)
[2017-01-04] MEDS: FERROUS GLUCONATE 324 MG TABLET PO SCH ×2 (08:41→20:15)
[2017-01-04] MEDS: ASPIRIN 325 MG TABLET PO SCH (08:41)
[2017-01-04] MEDS: GUAIFENESIN 600 MG TABLET PO SCH (08:41)
[2017-01-04] MEDS: GABAPENTIN 300 MG CAPSULE PO SCH ×3 (08:41→20:16)
[2017-01-04] MEDS: ISOSORBIDE MONONITRATE 30 MG SR 24H TABLET PO SCH (08:41)
[2017-01-04] MEDS: Metoprolol TARTRATE Tab 25 MG TAB PO SCH ×2 (08:41→20:15)
[2017-01-04] MEDS: Lactated Ringers 1,000 ML PRIMARY IV SCH ×3 (08:44→20:19)
[2017-01-04] MEDS ORDERED: Non-Formulary Drug (Gabapentin [Gabapentin] 1 TAB) PO SCH (09:00)
[2017-01-04] MEDS ORDERED: VENLAFAXINE HCL 150 MG PO SCH (09:00)
[2017-01-04] MEDS ORDERED: HYDROmorphone 2 MG/1 ML IVP PRN (13:00)
--- NOTE | 2017-01-04 14:30 | PDOC(PROG) ---
Interval History: Patient has been getting some sleep the D only thing that really takes care of his left hip pain as Dilaudid he also complains of some lower abdominal pain he also has some urinary obstruction with a Smith inserted denies chest pain nausea vomiting there is some discharge from around the Smith Objective : Data - Labs CBC and BMP: 01/04/17 05:05 01/04/17 05:05 Labs - Last 24 Hours: Laboratory Results 01/04/17 Range/Units 05:05 WBC 5.00 (4.8-10.8) 10^3/uL RBC 3.47 L (4.70-6.10) 10^6/uL Hgb 9.7 L (14.0-18.0) g/dL Hct 31.4 L (42.0-52.0) % MCV 90.5 H (80-90) FL MCH 28.0 (27-31) PG MCHC 30.9 L (33-37) g/dL RDW Std Deviation 42.3 (39-50) fL RDW Coeff of [place] 13.2 (11.5-14.5) % Plt Count 273 (140-350) 10*3/uL MPV 8.5 (7.4-12.2) FL Immature Gran % (Auto) 0.2 (0-5) % Neut % (Auto) 52.2 (50-80) % Lymph % (Auto) 27.8 (10-50) % [place] % (Auto) 11.0 (5-15) % Eos % (Auto) 8.4 H (0-8) % Baso % (Auto) 0.4 (0-1) % Immature Gran # (Auto) 0.01 10*3/UL Neut # (Auto) 2.61 10*3/UL Lymph # (Auto) 1.39 10*3/uL [place] # (Auto) 0.55 (0.3-0.8) 10*3/UL Eos # (Auto) 0.42 10*3/UL Baso # (Auto) 0.02 10*3/UL WBC Morphology Comment Normal morphology (NORM) Plt Morphology Comment Normal morphology (NORM) RBC Morph Comment Normal morphology (NORM) Sodium 139 (135-145) meq/L Potassium 4.3 (3.8-5.2) meq/L Chloride 103 (98-112) meq/L Carbon Dioxide 28 (23-33) meq/L Anion Gap 8 (5-20) BUN 11 (7-22) mg/dL Creatinine 0.6 L (0.70-1.50) mg/dL Estimated GFR [employer] BUN/Creatinine Ratio 18.33 (6-20) Glucose 80 (78-110) mg/dL Calculated Osmolality 285.0 (267-292) mOsm/kg Calcium 8.6 L (8.7-10.7) mg/dL Objective : Exam - General General Appearance: Cooperative - Respiratory Respiratory Exam: Clear to Auscultation - Bilaterally, Breathing Non Labored, Normal To Percussion, Normal to Percussion and Palpation - Cardiovascular Cardiovascular Exam: RRR, No Murmur, No Clicks, No Gallops - GI/Abdominal GI/Abdominal Exam: Soft Additional GI/Abdominal Exam Details: Some tenderness in the suprapubic area lower abdominal area no guarding or rebound - Extremities Extremities Exam: No Clubbing Present, No Edema Present, No Cyanosis Present - Neurological Neurological Exam: Alert, Oriented x 3, Reflexes Normal, CN II-XII Intact Assessment and Plan - Patient Problems (1) Chronic back pain Current Visit: No Status: Acute Qualifiers: Back pain location: low back pain (2) Coronary artery disease Current Visit: No Status: Chronic Qualifiers: Coronary Disease-Associated Artery/Lesion type: [place] artery [place] vs. transplanted heart: [place] heart Associated angina: without angina Qualified Description: Coronary artery disease involving [place] coronary artery of [place] heart without angina pectoris Qualifier Code(s): (I25.10) Atherosclerotic heart disease of [place] coronary artery without angina pectoris (3) Compression fracture Current Visit: Yes Status: Acute (4) DVT prophylaxis Current Visit: No Status: Acute (5) Fall Current Visit: Yes Status: Acute (6) UTI (urinary tract infection) Current Visit: Yes Status: Acute - Assessment / Plan Additional Assessment/Plan Details: Severe left hip pain with severe arthritis apparently the patient has been cleared by cardiology to have his hip replaced in [place] he has not heard from the orthopedic surgeons #2 urinary tract infection with Soma he now discharged from around the catheter on Claforan #3 urinary obstruction has a Smith and before coming into the hospital #4 some lower abdominal pain we'll order CT scan abdomen and pelvis #5 failure to thrive consult PT OT and social services director Photo / Body Diagrams - Uploaded Photos Uploaded Photos:
[2017-01-04] MEDS: Levofloxacin 750mg (Premix) 750 MG in Dextrose 1 BAG IV SCH (16:28)
[2017-01-04] MEDS: TIOTROPIUM BROMIDE 18 MCG CAPSULE INH SCH (18:54)
[2017-01-04] MEDS: Terazosin Cap 5 MG CAP PO SCH (20:15)
[2017-01-04] MEDS: FINASTERIDE 5 MG TABLET PO SCH (20:16)
[2017-01-04] MEDS: Simvastatin Tab 40 MG TAB PO SCH (20:17)
[2017-01-05] MEDS: Lactated Ringers 1,000 ML PRIMARY IV SCH (04:09)
[2017-01-05] MEDS: HYDROcodone-APAP 5 MG -325 MG TABLET PO PRN ×3 (04:51→15:17)
[2017-01-05] MEDS: BUDESONIDE INH SCH ×3 (06:24→19:03)
[2017-01-05] MEDS: FORMOTEROL FUMARATE INH SCH ×3 (06:24→19:03)
[2017-01-05] MEDS: HYDROmorphone 2 MG/1 ML IVP PRN ×3 (07:26→19:07)
[2017-01-05] MEDS ORDERED: Levofloxacin 750mg (Premix) 750 MG in Dextrose 1 BAG IV SCH (09:00)
[2017-01-05] MEDS: ENOXAPARIN SODIUM 40 MG/0.4 ML SYRINGE SUBCUT SCH (09:06)
[2017-01-05] MEDS: GUAIFENESIN 600 MG TABLET PO SCH (09:06)
[2017-01-05] MEDS: FERROUS GLUCONATE 324 MG TABLET PO SCH ×2 (09:07→20:23)
[2017-01-05] MEDS: ISOSORBIDE MONONITRATE 30 MG SR 24H TABLET PO SCH (09:07)
[2017-01-05] MEDS: CLOPIDOGREL 75 MG TABLET PO SCH (09:07)
[2017-01-05] MEDS: GABAPENTIN 300 MG CAPSULE PO SCH ×3 (09:07→20:23)
[2017-01-05] MEDS: Metoprolol TARTRATE Tab 25 MG TAB PO SCH ×2 (09:07→20:23)
[2017-01-05] MEDS: ASPIRIN 325 MG TABLET PO SCH (09:07)
--- NOTE | 2017-01-05 11:48 | PT.PROG ---
Progress Note Progress Note: S: pt reports he is in alot of pain in his L side. pt feels burning and achy. O: nsg okay'd prior to PT. pt issued abdominal binder for pain. pt instructed to stand with min assist x 2. Pt requires min assist x 2 for gait with standard walker. pt ambulated approx 15 feet today, he was in too much pain to continue. pt returned to bed with max assist x 1 for LE. pt requires max cues for technique for bed mobility. pt instructed in quad sets in bed and ankle pumps. trial of manual traction increased pain. pt left in bed with bed alarm activated and call light within reach and calf pumps back on. A: pt tolerated therapy fair, in alot of pain today. pt has alot of crepitis with movement. pt continues to benefit from skilled therapy P: cont per POC.
--- NOTE | 2017-01-05 12:07 | PDOC(PROG) ---
Interval History: Patient has no complaints this pain is better controlled no chest pain no nausea no vomiting having good bowel movements Objective : Data - Labs CBC and BMP: 01/04/17 05:05 01/04/17 05:05 Objective : Exam - General General Appearance: Cooperative - Respiratory Respiratory Exam: Clear to Auscultation - Bilaterally, Breathing Non Labored, Normal To Percussion Additional Respiratory Exam Details: No point tenderness on his rib cage is left or right - Cardiovascular Cardiovascular Exam: RRR, No Murmur, No Clicks - GI/Abdominal GI/Abdominal Exam: Normal Bowel Sounds, Non Tender, Non Distended, Soft - Extremities Extremities Exam: No Clubbing Present, No Edema Present, No Cyanosis Present Assessment and Plan - Patient Problems (1) Chronic back pain Current Visit: No Status: Acute Comment: Multilevel compression fractures pain controlled Qualifiers: Back pain location: low back pain (2) Coronary artery disease Current Visit: No Status: Chronic Comment: Stable at present time Qualifiers: Coronary Disease-Associated Artery/Lesion type: [place] artery [place] vs. transplanted heart: [place] heart Associated angina: without angina Qualified Description: Coronary artery disease involving [place] coronary artery of [place] heart without angina pectoris Qualifier Code(s): (I25.10) Atherosclerotic heart disease of [place] coronary artery without angina pectoris (3) Compression fracture Current Visit: Yes Status: Acute Comment: Pain is controlled (4) DVT prophylaxis Current Visit: No Status: Acute Comment: Lovenox (5) Fall Current Visit: Yes Status: Acute (6) UTI (urinary tract infection) Current Visit: Yes Status: Acute Comment: Continue Levaquin CT scan of the abdomen called for also infiltrates on CT of the chest there is no pneumonia present urine cultures negative (7) Lung nodules Current Visit: Yes Status: Acute (8) Rectal mass Current Visit: Yes Status: Acute Comment: This was seen on CT scan also CT of the chest reveals 1.6 cm lung nodule I will discuss the case with the general surgery for possible colonoscopy Photo / Body Diagrams - Uploaded Photos Uploaded Photos:
[2017-01-05] MEDS: Levofloxacin 750mg (Premix) 750 MG in Dextrose 1 BAG IV SCH (17:37)
[2017-01-05] MEDS: TIOTROPIUM BROMIDE 18 MCG CAPSULE INH SCH (19:02)
[2017-01-05] MEDS: NORMAL SALINE 10 ML SYRINGE FLUSH IVP PRN ×2 (19:08→20:15)
[2017-01-05] MEDS: FINASTERIDE 5 MG TABLET PO SCH (20:23)
[2017-01-05] MEDS: Simvastatin Tab 40 MG TAB PO SCH (20:23)
[2017-01-05] MEDS: Terazosin Cap 5 MG CAP PO SCH (20:23)
[2017-01-06 04:59] LABS: BASOPHILS # (AUTO) 0.02 10*3/UL; BASOPHILS % (AUTO) 0.4 % (0-1); EOSINOPHILS # (AUTO) 0.34 10*3/UL; EOSINOPHILS % (AUTO) 6.6 % (0-8); HEMATOCRIT 32.2 % (42.0-52.0); HEMOGLOBIN 9.9 g/dL (14.0-18.0); LYMPHOCYTES # (AUTO) 0.99 10*3/uL; MEAN CORPUSCULAR HEMOGLOBIN 28.2 PG (27-31); MEAN CORPUSCULAR HGB CONC 30.7 g/dL (33-37); MEAN CORPUSCULAR VOLUME 91.7 FL (80-90); MEAN PLATELET VOLUME 8.2 FL (7.4-12.2); MONOCYTES # (AUTO) 0.66 10*3/UL (0.3-0.8); MONOCYTES % (AUTO) 12.7 % (5-15); NEUTROPHILS # (AUTO) 3.17 10*3/UL; NEUTROPHILS % (AUTO) 61.2 % (50-80); PLATELET MORPHOLOGY COMMENT NORMAL MORPHOLOGY (NORM); RBC MORPHOLOGY COMMENT NORMAL MORPHOLOGY (NORM); RED BLOOD COUNT 3.51 10^6/uL (4.70-6.10); WBC MORPHOLOGY COMMENT NORMAL MORPHOLOGY (NORM)
[2017-01-06 05:06] LABS: BLOOD UREA NITROGEN 11 mg/dL (7-22); BUN/CREATININE RATIO 18.33 (6-20); CALCIUM 8.6 mg/dL (8.7-10.7); SERUM ALBUMIN 3.1 g/dL (3.5-4.8)
[2017-01-06] MEDS: BUDESONIDE INH SCH ×2 (06:53→19:22)
[2017-01-06] MEDS: FORMOTEROL FUMARATE INH SCH ×2 (06:53→19:22)
[2017-01-06] MEDS: Metoprolol TARTRATE Tab 25 MG TAB PO SCH ×2 (08:47→20:58)
[2017-01-06] MEDS: ENOXAPARIN SODIUM 40 MG/0.4 ML SYRINGE SUBCUT SCH (08:47)
[2017-01-06] MEDS: HYDROcodone-APAP 5 MG -325 MG TABLET PO PRN ×2 (08:47→20:58)
[2017-01-06] MEDS: GUAIFENESIN 600 MG TABLET PO SCH (08:48)
[2017-01-06] MEDS: ASPIRIN 325 MG TABLET PO SCH (08:48)
[2017-01-06] MEDS: FERROUS GLUCONATE 324 MG TABLET PO SCH ×2 (08:48→20:58)
[2017-01-06] MEDS: CLOPIDOGREL 75 MG TABLET PO SCH (08:48)
[2017-01-06] MEDS: GABAPENTIN 300 MG CAPSULE PO SCH ×3 (08:48→20:57)
[2017-01-06] MEDS: ISOSORBIDE MONONITRATE 30 MG SR 24H TABLET PO SCH (08:48)
--- NOTE | 2017-01-06 10:33 | PDOC(PROG) ---
Interval History: Patient is doing much better I discussed all the findings of the CAT scans of the chest and abdomen with him and his and also explained that I consulted Dr. waldemar Garcia for possible colonoscopy. He said his pain is much better controlled his appetite is back denies chest pain nausea or vomiting Objective : Data - Labs CBC and BMP: 01/06/17 04:20 01/06/17 04:20 Labs - Last 24 Hours: Laboratory Results 01/06/17 Range/Units 04:20 WBC 5.18 (4.8-10.8) 10^3/uL RBC 3.51 L (4.70-6.10) 10^6/uL Hgb 9.9 L (14.0-18.0) g/dL Hct 32.2 L (42.0-52.0) % MCV 91.7 H (80-90) FL MCH 28.2 (27-31) PG MCHC 30.7 L (33-37) g/dL RDW Std Deviation 43.0 (39-50) fL RDW Coeff of Robert 13.3 (11.5-14.5) % Plt Count 234 (140-350) 10*3/uL MPV 8.2 (7.4-12.2) FL Immature Gran % (Auto) 0 (0-5) % Neut % (Auto) 61.2 (50-80) % Lymph % (Auto) 19.1 (10-50) % [place] % (Auto) 12.7 (5-15) % Eos % (Auto) 6.6 (0-8) % Baso % (Auto) 0.4 (0-1) % Immature Gran # (Auto) 0 10*3/UL Neut # (Auto) 3.17 10*3/UL Lymph # (Auto) 0.99 10*3/uL [place] # (Auto) 0.66 (0.3-0.8) 10*3/UL Eos # (Auto) 0.34 10*3/UL Baso # (Auto) 0.02 10*3/UL WBC Morphology Comment Normal morphology (NORM) Plt Morphology Comment Normal morphology (NORM) RBC Morph Comment Normal morphology (NORM) Sodium 141 (135-145) meq/L Potassium 4.3 (3.8-5.2) meq/L Chloride 102 (98-112) meq/L Carbon Dioxide 31 (23-33) meq/L Anion Gap 8 (5-20) BUN 11 (7-22) mg/dL Creatinine 0.6 L (0.70-1.50) mg/dL Estimated GFR Fish [place] BUN/Creatinine Ratio 18.33 (6-20) Glucose 88 (78-110) mg/dL Calculated Osmolality 289.0 (267-292) mOsm/kg Calcium 8.6 L (8.7-10.7) mg/dL Total Bilirubin 0.4 (0.3-1.2) mg/dL AST 18 L (21-57) IU/L ALT 22 (21-72) IU/L Alkaline Phosphatase 69 (38-126) IU/L Total Protein 6.1 (6.1-8.0) g/dL Albumin 3.1 L (3.5-4.8) g/dL Globulin 3.0 (2.50-4.10) g/dL Albumin/Globulin Ratio 1.00 L (1.3-2.0) mg/g Objective : Exam - General General Appearance: Cooperative - Respiratory Respiratory Exam: Clear to Auscultation - Bilaterally, Breathing Non Labored, Normal To Percussion, Normal to Percussion and Palpation - Cardiovascular Cardiovascular Exam: RRR, No Murmur, No Clicks, No Gallops - GI/Abdominal GI/Abdominal Exam: Non Tender, Non Distended, Soft - Extremities Extremities Exam: No Clubbing Present, No Edema Present, No Cyanosis Present Assessment and Plan - Patient Problems (1) Chronic back pain Current Visit: No Status: Acute Comment: Good pain relief Qualifiers: Back pain location: low back pain (2) Coronary artery disease Current Visit: No Status: Chronic Comment: Stable at present time Qualifiers: Coronary Disease-Associated Artery/Lesion type: [place] artery [place] vs. transplanted heart: [place] heart Associated angina: without angina Qualified Description: Coronary artery disease involving [place] coronary artery of [place] heart without angina pectoris Qualifier Code(s): (I25.10) Atherosclerotic heart disease of [place] coronary artery without angina pectoris (3) Compression fracture Current Visit: Yes Status: Acute Comment: Pain is relieved patient is comfortable (4) DVT prophylaxis Current Visit: No Status: Acute (5) Fall Current Visit: Yes Status: Acute (6) UTI (urinary tract infection) Current Visit: Yes Status: Acute Comment: We will treat with total of 5 days today is day 4 (7) Lung nodules Current Visit: Yes Status: Acute Comment: says he had these in the past he also had them biopsied (8) Rectal mass Current Visit: Yes Status: Acute Comment: Insult to Dr. waldemar Garcia for further evaluation and treatment Photo / Body Diagrams - Uploaded Photos Uploaded Photos:
--- NOTE | 2017-01-06 12:26 | CONSULT ---
Consult Note - Consult Consult Date: 01/06/17 Reason for Consult: PreOp Consulation : General Surgery Requesting Physician: Dr. Preciado Primary Care Provider: Roscoe Logan MD - History of Present Illness History of Present Illness: This is a 71-year-old gentleman who has COPD and coronary artery disease. He came in for UTI and pneumonia. Subsequently he's had films that show that he has thickening of the perirectal tissue. Also he has a lung mass. I also show that had possible bilateral pneumonias. Patient has a positive UTI and indwelling catheter from benign prostatic hypertrophy Past Medical History Medical History: 1. Hypertension. 2. Coronary artery disease with previous stents in 2006, recent stress test showed mild apex ischemia that is likely not interventional. 3. COPD on oxygen, 3.5 L/m. 4. Chronic pain syndrome. 5. PTSD. 6. Osteoporosis. 7. BPH. 8. Strongly suspect tardive dyskinesia Surgical History: Appendectomy. Stents (coronary) Pertinent Family History: Does not know family history per my review of the medical records. Past Social History: Patient used to smoke. Is . Has children. He is not very active, with most of his exercising walking around his house. Does not drink alcohol. Tobacco Use: Former Smoker Substance Use Type: Opiate Pain Medication Medication / Allergies Home Medications: Home Medications Medication Instructions Recorded Confirmed Type Albuterol Sulfate [ALBUTEROL HFA] 2 inh PO QID PRN 09/11/11 01/03/17 History Aspirin 1 tab PO DAILY 09/11/11 01/03/17 History Calcium Carbonate/Vitamin D3 1 tab PO TID 09/11/11 01/03/17 History [Calcium 600 with Vit D Tab] Clopidogrel [Plavix] 1 tab PO DAILY 09/11/11 01/03/17 History Nitroglycerin SL Tab [Nitrostat 0.4 mg SL Q5M PRN MDD 3 09/11/11 01/03/17 History SL Tab] Simvastatin [Zocor] 40 mg PO BEDTIME 09/11/11 01/03/17 History Terazosin HCl 10 mg PO BEDTIME 09/11/11 01/03/17 History Tiotropium [place] [Spiriva] 1 inh INH DAILY@1900 09/11/11 01/03/17 History Venlafaxine HCl 150 mg PO DAILY #90 08/10/12 01/03/17 Clinic Albuterol Sulfate 3 ml NEB QID 90 Days 05/12/13 01/03/17 Clinic Budesonide/Formoterol Fumarate 2 puff INH BID 30 Days 10/20/13 01/03/17 History [Symbicort 160-4.5 Mcg Inhaler] Sennosides [Senna] 1 cap PO BID 30 Days 10/20/13 01/03/17 History Metoprolol Tartrate Tab 25 mg PO BID 11/01/13 01/03/17 History [Lopressor Tab] Ferrous Gluconate [Fergon] 324 mg PO BID 01/12/15 01/03/17 History Guaifenesin [Mucus Relief] 600 mg PO DAILY 01/12/15 01/03/17 History Multivitamin [Multi-Vitamin Daily] 1 each PO QD 30 Days NS 04/12/15 01/03/17 Clinic Isosorbide Mononitrate [Isosorbide 30 mg PO DAILY #90 tab 12/26/15 01/03/17 Clinic Mononitrate Er] Polyeth Glycol 3350 Packet 17 gm PO DAILY PRN 01/19/16 01/03/17 History [Miralax Packet] Gabapentin 1 tab PO TID tab 05/09/16 01/03/17 History Hydrocodone/Acetaminophen 1 tab PO QID PRN #150 tab 10/30/16 01/03/17 Clinic [Hydrocodon-Acetaminophn 10325] Trihexyphenidyl HCl 2 tab PO BEDTIME 12/31/16 01/03/17 History Trihexyphenidyl HCl 3 tab PO QAM 12/31/16 01/03/17 History Ciprofloxacin HCl [Cipro] 1 tab PO BID #14 tab 01/01/17 01/03/17 Clinic Finasteride 5 mg PO BEDTIME 01/02/17 01/03/17 History Allergies/Adverse Reactions: Allergies Allergy/AdvReac Type Severity Reaction Status Date / Time No Known Drug Allergies Allergy NOT Verified 01/06/17 06:23 APPLICABLE PAIN CONTRACT AdvReac Unknown NOT Uncoded 01/06/17 06:23 APPLICABLE Exam - Vitals Vital Signs: Vital Signs Temperature 97.4 F Temperature Source Temporal Artery Scan Pulse Rate [Apical] 64 Pulse Rate [Pulse Oximeter] 63 Pulse Rate 64 Respiratory Rate 18 Blood Pressure [Right Arm] 137/80 Blood Pressure 128/78 Pulse Ox 98 Oxygen Flow Rate 3 Oxygen Delivery Method Nasal Cannula Height 5 ft 9 in Weight 83.733 kg - General General Appearance: POSITIVE: Cooperative, Mild Distress Results - Labs CBC and BMP: 01/06/17 04:20 01/06/17 04:20 Labs - Last 24 Hours: Laboratory Results 01/06/17 Range/Units 04:20 WBC 5.18 (4.8-10.8) 10^3/uL RBC 3.51 L (4.70-6.10) 10^6/uL Hgb 9.9 L (14.0-18.0) g/dL Hct 32.2 L (42.0-52.0) % MCV 91.7 H (80-90) FL MCH 28.2 (27-31) PG MCHC 30.7 L (33-37) g/dL RDW Std Deviation 43.0 (39-50) fL RDW Coeff of [place] 13.3 (11.5-14.5) % Plt Count 234 (140-350) 10*3/uL MPV 8.2 (7.4-12.2) FL Immature Gran % (Auto) 0 (0-5) % Neut % (Auto) 61.2 (50-80) % Lymph % (Auto) 19.1 (10-50) % [place] % (Auto) 12.7 (5-15) % Eos % (Auto) 6.6 (0-8) % Baso % (Auto) 0.4 (0-1) % Immature Gran # (Auto) 0 10*3/UL Neut # (Auto) 3.17 10*3/UL Lymph # (Auto) 0.99 10*3/uL [place] # (Auto) 0.66 (0.3-0.8) 10*3/UL Eos # (Auto) 0.34 10*3/UL Baso # (Auto) 0.02 10*3/UL WBC Morphology Comment Normal morphology (NORM) Plt Morphology Comment Normal morphology (NORM) RBC Morph Comment Normal morphology (NORM) Sodium 141 (135-145) meq/L Potassium 4.3 (3.8-5.2) meq/L Chloride 102 (98-112) meq/L Carbon Dioxide 31 (23-33) meq/L Anion Gap 8 (5-20) BUN 11 (7-22) mg/dL Creatinine 0.6 L (0.70-1.50) mg/dL Estimated GFR [place] BUN/Creatinine Ratio 18.33 (6-20) Glucose 88 (78-110) mg/dL Calculated Osmolality 289.0 (267-292) mOsm/kg Calcium 8.6 L (8.7-10.7) mg/dL Total Bilirubin 0.4 (0.3-1.2) mg/dL AST 18 L (21-57) IU/L ALT 22 (21-72) IU/L Alkaline Phosphatase 69 (38-126) IU/L Total Protein 6.1 (6.1-8.0) g/dL Albumin 3.1 L (3.5-4.8) g/dL Globulin 3.0 (2.50-4.10) g/dL Albumin/Globulin Ratio 1.00 L (1.3-2.0) mg/g Assessment and Plan - Patient Problems (1) Dehydration Current Visit: No Status: Acute (2) Lung nodules Current Visit: Yes Status: Acute - Assessment / Plan Additional Assessment/Plan Details: At this point I do think the gentleman needs to get over his pneumonia and his UTI before having anything additionally done. Like to see him as an outpatient set up a colonoscopy. He also needs a percutaneous biopsy of the lung mass. Dr. Enzo Beasley thinks is can be done at our hospital.
[2017-01-06] MEDS ORDERED: VENLAFAXINE HCL 150 MG PO SCH (12:45)
--- NOTE | 2017-01-06 13:06 | PT.PROG ---
Progress Note Progress Note: Patient refused therapy this morning due to pain.
[2017-01-06] MEDS: VENLAFAXINE XR 75 MG CAP PO SCH (15:37)
--- NOTE | 2017-01-06 16:04 | PTI REPORT ---
Thank you for the referral of Frandy Morales. He was seen on 01/04/17 for an inpatient evaluation secondary to weakness. SUBJECTIVE: The patient is a 69-year-old male. The patient reports that he lives with his . He states he uses a standard walker to get around. The patient reports that he is in pain. He has hip pain in his right hip and has been looking to get that right hip replaced for a while now. The patient also reports that he has back pain. The patient is on three liters of oxygen and is on oxygen at home. Prior to admission the patient was independent with all activities of daily living. Nursing okayed treatment prior to PT PAST MEDICAL HISTORY: Past medical history can be found in the patient's medical record. OBJECTIVE FINDINGS: General observations: Upon examination the patient's right hip was very crepitus and has very limited range of motion. The patient is unable to complete straight leg raise without significant pain and is only able to perform approximate 10 degree straight leg raise. The patient was on three liters of oxygen and an IV. Transfers: The patient required mod assist x2 for sit to stand transfer with use of standard walker. Ambulation: The patient was able to ambulate approximately 15 feet with min assist x2 for safety and line management. The patient's hip was bothering him too much to go any further so the patient was returned to his chair with call light within reach and chair alarm activated due to fatigue. The patient was positioned with his heels up. Endurance: The patient fatigues very easily. ASSESSMENT: The patient is a 71-year-old male that presents with generalized weakness. The patient will benefit from skilled therapy in order to improve functional mobility. The patient's prognosis for therapy is fair. Problem List: Decreased strength Decreased independence Decreased endurance Short-Term Goals: To be met by discharge from inpatient: Patient will be independent with all transfers with least restrictive assistive device per prior level of function. Patient will be able to ambulate 150 feet with least restrictive assistive device. Patient will tolerate 15 minutes of continuous activity in order to improve endurance. Long-Term Goals: To be met following discharge from inpatient: Patient may benefit from being seen from outpatient physical therapy. Patient will be able to return home per prior level of function. TREATMENT PLAN: Patient will be seen B.I.D during the week and one time per day over the weekend as an inpatient for therapeutic exercise, functional activity, neuromuscular reeducation, gait training, and modalities as needed. INITIAL TREATMENT: Treatment today consisted of the initial evaluation. The patient was too fatigued and too painful in order to complete any further exercises at this time. We will continue to work with patient as able. ROCIO
--- NOTE | 2017-01-06 16:51 | OTI REPORT ---
Thank you for the referral of Frandy Morales. He was seen on 01/05/17 for an occupational therapy inpatient evaluation secondary to weakness. SUBJECTIVE: The patient is a 71-year-old male who was brought to the hospital via ambulance after it was recommended by DFS when they checked on his living situation. The patient does live with his . He does report that she does most of the iADLs in the home but that he was completing ADLs such as dressing and showering independently. The patient reports at this time that he is not entirely sure why he is in the hospital; he does know that he is weak and has had multiple falls lately. He does complain of a lot of pain in his back. An x -ray confirmed that he does have a new compression fracture at T7. Nursing also came in this morning and said that more x-rays have also shown that the patient has rib fractures. PAST MEDICAL HISTORY: Past medical history can be found in the patient's medical record. OBJECTIVE FINDINGS: Pain: The patient does complain of a lot of pain in the right hip due to arthritis. Even sitting in the chair, any general movements were causing pain in the back and hip. Range of motion: The patient has fair shoulder range of motion to approximately 160 degrees. Strength: The patient demonstrates upper extremity strength of 4-5 bilaterally; although strength activities do cause pain in the back. Sensation: The patient denies any tingling or numbness anywhere in the upper or lower extremities. Activities of daily living: At this time we did not attempt any dressing activities. The patient did require contact guard assist to sit up in his chair ; he did have to support his back with his arms. Transfers: The patient was able to complete a sit to stand transfer with min assist x2 for safety. Ambulation: The patient was able to functionally ambulate approximately 20 feet before transferring back into bed. Bed mobility: Sitting edge of bed to supine transfer required mod assist due to the pain in his back and his hip. The patient did require verbal cues to scoot up in bed and verbal cues on the steps to scoot up in bed. Cognition: The patient's cognition is questionable. It may be beneficial to complete a cognitive assessment to see if the patient is appropriate to be living alone or how much support he may need if he is to return home with his . ASSESSMENT: Problem List: Decreased ability to complete activities of daily living Possible decreased cognition Decreased upper extremity strength Decreased ability to complete functional transfers Occupational Therapy Goals: To be met by discharge from inpatient: Patient will be able to complete full body dressing mod independently using adaptive equipment for lower extremity dressing. Patient will be able to complete shower with stand by assist for safety. Patient will be able to complete 20 minutes of activity to functionally complete ADLs. TREATMENT PLAN: Patient will be seen B.I.D during the week and one time per day over the weekend as an inpatient to address the above goals and objectives. INITIAL TREATMENT: Treatment today consisted of the inpatient evaluation activities only. ROCIO
[2017-01-06] MEDS: TIOTROPIUM BROMIDE 18 MCG CAPSULE INH SCH (19:21)
[2017-01-06] MEDS: Terazosin Cap 5 MG CAP PO SCH (20:58)
[2017-01-06] MEDS: FINASTERIDE 5 MG TABLET PO SCH (20:58)
[2017-01-06] MEDS: Simvastatin Tab 40 MG TAB PO SCH (20:58)
[2017-01-07] MEDS: BUDESONIDE INH SCH ×2 (06:57→18:47)
[2017-01-07] MEDS: FORMOTEROL FUMARATE INH SCH ×2 (06:57→18:47)
[2017-01-07] MEDS: VENLAFAXINE XR 75 MG CAP PO SCH (08:24)
[2017-01-07] MEDS: FERROUS GLUCONATE 324 MG TABLET PO SCH ×2 (08:24→21:50)
[2017-01-07] MEDS: HYDROcodone-APAP 5 MG -325 MG TABLET PO PRN ×4 (08:24→21:50)
[2017-01-07] MEDS: ENOXAPARIN SODIUM 40 MG/0.4 ML SYRINGE SUBCUT SCH (08:24)
[2017-01-07] MEDS: CLOPIDOGREL 75 MG TABLET PO SCH (08:24)
[2017-01-07] MEDS: GABAPENTIN 300 MG CAPSULE PO SCH ×3 (08:24→20:56)
[2017-01-07] MEDS: ISOSORBIDE MONONITRATE 30 MG SR 24H TABLET PO SCH (08:24)
[2017-01-07] MEDS: Metoprolol TARTRATE Tab 25 MG TAB PO SCH ×2 (08:25→20:56)
[2017-01-07] MEDS: GUAIFENESIN 600 MG TABLET PO SCH (08:25)
[2017-01-07] MEDS: ASPIRIN 325 MG TABLET PO SCH (08:25)
--- NOTE | 2017-01-07 09:38 | PDOC(PROG) ---
Interval History: No complaints other than his left hip hurts refused therapy today Objective : Data - Labs CBC and BMP: 01/06/17 04:20 01/06/17 04:20 Objective : Exam - Respiratory Respiratory Exam: Clear to Auscultation - Bilaterally, Breathing Non Labored, Normal To Percussion - Cardiovascular Cardiovascular Exam: RRR, No Murmur, No Clicks - GI/Abdominal GI/Abdominal Exam: Normal Bowel Sounds, Non Distended, Soft - Extremities Extremities Exam: No Clubbing Present, No Edema Present, No Cyanosis Present Assessment and Plan - Patient Problems (1) Chronic back pain Current Visit: No Status: Chronic Comment: Controlled Qualifiers: Back pain location: low back pain (2) Coronary artery disease Current Visit: No Status: Chronic Comment: Stable at present time Qualifiers: Coronary Disease-Associated Artery/Lesion type: [place] artery [place] vs. transplanted heart: [place] heart Associated angina: without angina Qualified Description: Coronary artery disease involving [place] coronary artery of [place] heart without angina pectoris Qualifier Code(s): (I25.10) Atherosclerotic heart disease of [place] coronary artery without angina pectoris (3) Compression fracture Current Visit: Yes Status: Acute Comment: Pain controlled (4) DVT prophylaxis Current Visit: No Status: Acute (5) Fall Current Visit: Yes Status: Acute (6) UTI (urinary tract infection) Current Visit: Yes Status: Resolved Comment: Resolved off antibiotics (7) Lung nodules Current Visit: Yes Status: Acute Comment: Offered to have biopsy done here at [facility] patient is still thinking about it will let us know (8) Rectal mass Current Visit: Yes Status: Acute Comment: Dr. waldemar Garcia evaluated the patient and recommended colonoscopy as outpatient patient agrees with the outpatient colonoscopy and does not want to do it now Photo / Body Diagrams - Uploaded Photos Uploaded Photos:
--- NOTE | 2017-01-07 15:11 | PT.PROG ---
Progress Note Progress Note: S. Patient stated that he is in a lot of pain this morning however would do some exercises in bed. O. Patient Performed heel slides, quad sets, ankle pumps hip abduction/ adduction all x 10 on the left. Patient was left in bed with alarm and call light. A. Patient was unable to perform exercises on the right leg due to hip pain. Patient would continue to benefit from skilled therapy to gain strength and mobility. P. Continue POC.
--- NOTE | 2017-01-07 16:11 | OT.PROG ---
Progress Note Progress Note: S: pt stated his R hip hurts. He stated that he did not want to get out of bed due to the pain. O: pt was seen in the p.m. and agreed to completed exercises in bed. While in supine position he completed UE exercises with RTB in rows, bicep flex, tricep ext, IROT/EROT, shoulder ext all x20 to increase strength to assist with bed mobility. He also completed Heels slides, and ankles pumps only with the RLE. A: pt would continue to benefit from therapy to address mobility and pain in R hip. His pain increased with movment of L non affected hip. P: continue per plan of care.
[2017-01-07] MEDS: TIOTROPIUM BROMIDE 18 MCG CAPSULE INH SCH (18:46)
[2017-01-07] MEDS: FINASTERIDE 5 MG TABLET PO SCH (20:56)
[2017-01-07] MEDS: Terazosin Cap 5 MG CAP PO SCH (20:56)
[2017-01-07] MEDS: Simvastatin Tab 40 MG TAB PO SCH (20:56)
[2017-01-08] MEDS: HYDROcodone-APAP 5 MG -325 MG TABLET PO PRN ×4 (01:35→20:31)
[2017-01-08] MEDS: BUDESONIDE INH SCH ×2 (07:00→18:42)
[2017-01-08] MEDS: FORMOTEROL FUMARATE INH SCH ×2 (07:00→18:42)
[2017-01-08] MEDS: ENOXAPARIN SODIUM 40 MG/0.4 ML SYRINGE SUBCUT SCH (08:58)
[2017-01-08] MEDS: ISOSORBIDE MONONITRATE 30 MG SR 24H TABLET PO SCH (08:59)
[2017-01-08] MEDS: Metoprolol TARTRATE Tab 25 MG TAB PO SCH ×2 (08:59→20:30)
[2017-01-08] MEDS: GABAPENTIN 300 MG CAPSULE PO SCH ×3 (08:59→20:31)
[2017-01-08] MEDS: ASPIRIN 325 MG TABLET PO SCH (08:59)
[2017-01-08] MEDS: VENLAFAXINE XR 75 MG CAP PO SCH (08:59)
[2017-01-08] MEDS: CLOPIDOGREL 75 MG TABLET PO SCH (08:59)
[2017-01-08] MEDS: FERROUS GLUCONATE 324 MG TABLET PO SCH (08:59)
[2017-01-08] MEDS: GUAIFENESIN 600 MG TABLET PO SCH (08:59)
--- NOTE | 2017-01-08 09:59 | PT.PROG ---
Progress Note Progress Note: S. Patient states that his right hip is very painful and doesn't feel that he can do exercises on the right. O. Patient performed long arc quads, heel toe raises, marches, hip abduction/ adduction all on the left. Patient performed sit to stands x 3 then ambulated 3 feet to the shower chair and was left with nursing. A. Patient tolerated seated exercises on his left fair, he struggles with pain on his right and is unable to perform transfers safely. Patient is very weak and would continue to benefit from skilled therapy at this time. P. continue POC.
--- NOTE | 2017-01-08 13:57 | PDOC(PROG) ---
Date and Time of Service: 01/08/2017, 1355 Interval History: No complains of chest pain or shortness breath. The patient seemed very disconnected from knowing what was going on during this hospital stay and I suspect he has underlying dementia. I will get an OT evaluation for cognitive eval. Complains of right hip pain. Objective : Data - Labs CBC and BMP: 01/06/17 04:20 01/06/17 04:20 Labs - Last 24 Hours: Laboratory Results 01/03/17 01/03/17 01/03/17 Range/Units 17:27 17:28 17:29 WBC 4.91 (4.8-10.8) 10^3/uL RBC 3.78 L (4.70-6.10) 10^6/uL Hgb 10.6 L (14.0-18.0) g/dL Hct 34.2 L (42.0-52.0) % MCV 90.5 H (80-90) FL MCH 28.0 (27-31) PG MCHC 31.0 L (33-37) g/dL RDW Std Deviation 42.6 (39-50) fL RDW Coeff of Robert 13.3 (11.5-14.5) % Plt Count 263 (140-350) 10*3/uL MPV 8.0 (7.4-12.2) FL Immature Gran % (Auto) 0 (0-5) % Neut % (Auto) 62.2 (50-80) % Lymph % (Auto) 18.5 (10-50) % [place]an % (Auto) 12.4 (5-15) % Eos % (Auto) 6.7 (0-8) % Baso % (Auto) 0.2 (0-1) % Immature Gran # (Auto) 0 10*3/UL Neut # (Auto) 3.05 10*3/UL Lymph # (Auto) 0.91 10*3/uL [place]an # (Auto) 0.61 (0.3-0.8) 10*3/UL Eos # (Auto) 0.33 10*3/UL Baso # (Auto) 0.01 10*3/UL WBC Morphology Comment Normal morphology (NORM) Plt Morphology Comment Normal morphology (NORM) RBC Morph Comment Normal morphology (NORM) Sodium 141 (135-145) meq/L Potassium 4.2 (3.8-5.2) meq/L Chloride 100 (98-112) meq/L Carbon Dioxide 30 (23-33) meq/L Anion Gap 11 (5-20) BUN 12 (7-22) mg/dL Creatinine 0.7 (0.70-1.50) mg/dL Estimated GFR (>60 ml/min/1.73m(2)) BUN/Creatinine Ratio 17.14 (6-20) Glucose 117 H (78-110) mg/dL Calculated Osmolality 292.0 (267-292) mOsm/kg Calcium 9.0 (8.7-10.7) mg/dL Magnesium 2.1 (1.6-2.4) mg/dL Total Bilirubin 0.6 (0.3-1.2) mg/dL AST 22 (21-57) IU/L ALT 23 (21-72) IU/L Alkaline Phosphatase 81 (38-126) IU/L Total Creatine Kinase 60 (55-170) IU/L Troponin I < 0.012 (< 0.040) ng/mL C-Reactive Protein 3.2 H (0.0-0.9) mg/dL Total Protein 6.4 (6.1-8.0) g/dL Albumin 3.4 L (3.5-4.8) g/dL Globulin 3.0 (2.50-4.10) g/dL Albumin/Globulin Ratio 1.10 L (1.3-2.0) mg/g Ur Collection Type Clean catch urine Urine Color Yellow Urine Clarity Slightly cloudy (CLEAR) Urine pH 7.0 (5.0-8.5) Ur Specific [place] 1.010 (1.005-1.030) Urine Protein Negative (NEG) mg/dl Urine Glucose (UA) Negative (NEG) mg/dL Urine Ketones Negative (NEG) Urine Occult Blood Moderate H (NEG) Urine Nitrate Negative (NEG) Urine Bilirubin Negative (NEG) Urine Urobilinogen 0.2 (0.2) EU/dL Ur Leukocyte Esterase Moderate (NEG) Urine RBC 1-3 (NONE) /hpf Urine WBC 8-10 (NONE) Ur Squamous Epith Cells Rare (NONE) Ur Renal Epithelial Cell None (NONE) Urine Crystals None Urine Bacteria Moderate (NONE) Urine Casts None (NONE) Urine Mucus None (NONE) Urine Trichomonas None (NONE) Urine Yeast None (NONE) Ur Culture Indicated? Culture set 01/04/17 01/06/17 Range/Units 05:05 04:20 WBC 5.00 5.18 (4.8-10.8) 10^3/uL RBC 3.47 L 3.51 L (4.70-6.10) 10^6/uL Hgb 9.7 L 9.9 L (14.0-18.0) g/dL Hct 31.4 L 32.2 L (42.0-52.0) % MCV 90.5 H 91.7 H (80-90) FL MCH 28.0 28.2 (27-31) PG MCHC 30.9 L 30.7 L (33-37) g/dL RDW Std Deviation 42.3 43.0 (39-50) fL RDW Coeff of Robert 13.2 13.3 (11.5-14.5) % Plt Count 273 234 (140-350) 10*3/uL MPV 8.5 8.2 (7.4-12.2) FL Immature Gran % (Auto) 0.2 0 (0-5) % Neut % (Auto) 52.2 61.2 (50-80) % Lymph % (Auto) 27.8 19.1 (10-50) % Rowan % (Auto) 11.0 12.7 (5-15) % Eos % (Auto) 8.4 H 6.6 (0-8) % Baso % (Auto) 0.4 0.4 (0-1) % Immature Gran # (Auto) 0.01 0 10*3/UL Neut # (Auto) 2.61 3.17 10*3/UL Lymph # (Auto) 1.39 0.99 10*3/uL [place]an # (Auto) 0.55 0.66 (0.3-0.8) 10*3/UL Eos # (Auto) 0.42 0.34 10*3/UL Baso # (Auto) 0.02 0.02 10*3/UL WBC Morphology Comment Normal morphology Normal morphology (NORM) Plt Morphology Comment Normal morphology Normal morphology (NORM) RBC Morph Comment Normal morphology Normal morphology (NORM) Sodium 139 141 (135-145) meq/L Potassium 4.3 4.3 (3.8-5.2) meq/L Chloride 103 102 (98-112) meq/L Carbon Dioxide 28 31 (23-33) meq/L Anion Gap 8 8 (5-20) BUN 11 11 (7-22) mg/dL Creatinine 0.6 L 0.6 L (0.70-1.50) mg/dL Estimated GFR Finance Advisor Finance Advisor (>60 ml/min/1.73m(2)) BUN/Creatinine Ratio 18.33 18.33 (6-20) Glucose 80 88 (78-110) mg/dL Calculated Osmolality 285.0 289.0 (267-292) mOsm/kg Calcium 8.6 L 8.6 L (8.7-10.7) mg/dL Magnesium (1.6-2.4) mg/dL Total Bilirubin 0.4 (0.3-1.2) mg/dL AST 18 L (21-57) IU/L ALT 22 (21-72) IU/L Alkaline Phosphatase 69 (38-126) IU/L Total Creatine Kinase (55-170) IU/L Troponin I (< 0.040) ng/mL C-Reactive Protein (0.0-0.9) mg/dL Total Protein 6.1 (6.1-8.0) g/dL Albumin 3.1 L (3.5-4.8) g/dL Globulin 3.0 (2.50-4.10) g/dL Albumin/Globulin Ratio 1.00 L (1.3-2.0) mg/g Ur Collection Type Urine Color Urine Clarity (CLEAR) Urine pH (5.0-8.5) Ur Specific [place] (1.005-1.030) Urine Protein (NEG) mg/dl Urine Glucose (UA) (NEG) mg/dL Urine Ketones (NEG) Urine Occult Blood (NEG) Urine Nitrate (NEG) Urine Bilirubin (NEG) Urine Urobilinogen (0.2) EU/dL Ur Leukocyte Esterase (NEG) Urine RBC (NONE) /hpf Urine WBC (NONE) Ur Squamous Epith Cells (NONE) Ur Renal Epithelial Cell (NONE) Urine Crystals Urine Bacteria (NONE) Urine Casts (NONE) Urine Mucus (NONE) Urine Trichomonas (NONE) Urine Yeast (NONE) Ur Culture Indicated? Objective : Exam - General General Appearance: No Acute Distress, Cooperative Additional General Exam Details: Vital Signs - Last Taken Temperature 97.8 F 01/08/17 08:13 Pulse Rate 56 L 05/10/17 11:00 Respiratory Rate 22 01/08/17 08:13 Blood Pressure 135/77 01/08/17 08:13 Pulse Ox 96 01/08/17 08:13 - Respiratory Respiratory Exam: Breathing Non Labored, Wheezes - Cardiovascular Cardiovascular Exam: RRR, No Murmur, No Clicks, No Gallops, No Rubs, No JVD - GI/Abdominal GI/Abdominal Exam: Normal Bowel Sounds, Non Tender, Non Distended, Soft - Extremities Extremities Exam: No Clubbing Present, No Edema Present, No Cyanosis Present - Neurological Neurological Exam: Alert, No Facial Droop, Speech Intact / Clear Assessment and Plan - Patient Problems (1) COPD exacerbation Current Visit: Yes Status: Acute (2) Lung nodules Current Visit: Yes Status: Acute (3) Osteoarthritis of right hip Current Visit: Yes Status: Chronic Qualifiers: Osteoarthritis type: primary Qualified Description: Primary osteoarthritis of right hip Qualifier Code(s): (M16.11) Unilateral primary osteoarthritis, right hip (4) Weakness Current Visit: Yes Status: Acute (5) Coronary artery disease Current Visit: Yes Status: Chronic Qualifiers: Coronary Disease-Associated Artery/Lesion type: [place] artery [place] vs. transplanted heart: [place] heart Associated angina: without angina Qualified Description: Coronary artery disease involving [place] coronary artery of [place] heart without angina pectoris Qualifier Code(s): (I25.10) Atherosclerotic heart disease of [place] coronary artery without angina pectoris - Assessment / Plan Additional Assessment/Plan Details: At this point, try to eliminate medications to eliminate any alteration of mental status. Get OT evaluation for cognitive eval. Continue PT and OT. Continue breathing therapies and oxygen as indicated. [facility], likely halfway facility. I don't think this patient can manage at home. In terms of his coronary artery disease, although he has this and it is known, he has not had stents for some time. He may be a candidate to go off of Plavix. In addition I'm stopping his statin therapy as the cognitive impairment probably outweighs the benefits from this medication. Photo / Body Diagrams - Uploaded Photos Uploaded Photos:
[2017-01-08] MEDS: TIOTROPIUM BROMIDE 18 MCG CAPSULE INH SCH (18:44)
[2017-01-08] MEDS: FINASTERIDE 5 MG TABLET PO SCH (20:30)
[2017-01-08] MEDS: Terazosin Cap 5 MG CAP PO SCH (20:31)
[2017-01-09] MEDS: CLOPIDOGREL 75 MG TABLET PO SCH (08:38)
[2017-01-09] MEDS: VENLAFAXINE XR 75 MG CAP PO SCH (08:38)
[2017-01-09] MEDS: ENOXAPARIN SODIUM 40 MG/0.4 ML SYRINGE SUBCUT SCH (08:38)
[2017-01-09] MEDS: ISOSORBIDE MONONITRATE 30 MG SR 24H TABLET PO SCH (08:39)
[2017-01-09] MEDS: ASPIRIN 325 MG TABLET PO SCH (08:39)
[2017-01-09] MEDS: Metoprolol TARTRATE Tab 25 MG TAB PO SCH ×2 (08:39→20:11)
[2017-01-09] MEDS: GABAPENTIN 300 MG CAPSULE PO SCH ×3 (08:39→20:11)
[2017-01-09] MEDS ORDERED: VENLAFAXINE XR 75 MG CAP PO SCH (09:00)
[2017-01-09] MEDS: HYDROcodone-APAP 5 MG -325 MG TABLET PO PRN ×2 (09:48→19:54)
--- NOTE | 2017-01-09 11:37 | PT.PROG ---
Progress Note Progress Note: S. Patient stated that he is in a lot of pain however agreed to go to the therapy gym. O. Patient was wheeled to the therapy gym where he had heat on his back and hip to help decrease pain, then performed exercises in the form of; heel slides, quad sets, ankle pumps short arc quads on the left leg. Patient ambulated 3 feet to the wheelchair and was returned to his room where he was left in bed with alarm and call light. A. Patient was unable to do any exercise with his right leg, he continues to struggle with pain mostly his hip. He was able to ambulate a short distance however required min assist with sit to stand transfer and ambulation. Patient would continue to benefit from skilled therapy at this time. P. Continue POC.
--- NOTE | 2017-01-09 16:28 | PDOC(PROG) ---
Date and Time of Service: 01/09/2017, 1625 Interval History: I spoke with the patient at length and the patient's . I do not think the patient has dementia after speaking with him today. He is very alert, cognizant of his medical situation, and contributed with well thought out plans as to how we should manage his situation. He denies any chest pain, shortness breath, nausea or vomiting. He complains of significant hip pain that is limiting him and his motion. He has struggled trying to get an appointment in [place], despite recommendations to consider having a surgery done there so that cardiology and pulmonology services might afford. I asked him point blank, if you had the surgery and you as a result of heart attack or lung issues which would be okay making the attempt to try and get better from your hip pain. The patient said that he would absolutely take that risk. His agrees. Objective : Data - Labs CBC and BMP: 01/06/17 04:20 01/06/17 04:20 Objective : Exam - General General Appearance: No Acute Distress, Cooperative Additional General Exam Details: Vital Signs - Last Taken Temperature 97.9 F 01/09/17 16:10 Pulse Rate 64 01/09/17 16:10 Respiratory Rate 18 01/09/17 16:10 Blood Pressure 116/75 01/09/17 16:10 Pulse Ox 98 01/09/17 16:10 - Eye Eye Exam: No Scleral Icterus - Respiratory Respiratory Exam: Clear to Auscultation - Bilaterally, Breathing Non Labored - Cardiovascular Cardiovascular Exam: RRR, No Murmur, No Clicks, No Gallops, No Rubs, No JVD - GI/Abdominal GI/Abdominal Exam: Normal Bowel Sounds, Non Tender, Non Distended, Soft - Extremities Extremities Exam: No Clubbing Present, No Edema Present, No Cyanosis Present - Neurological Neurological Exam: Alert, Oriented x 3, No Facial Droop, Speech Intact / Clear Assessment and Plan - Patient Problems (1) UTI (urinary tract infection) Current Visit: Yes Status: Resolved Comment: This is present on admission, resolved. Has chronic catheterization due to acute urinary urinary retention due to significant BPH. Qualifiers: Urinary tract infection type: catheter-associated UTI Indwelling urinary catheter type: indwelling urethral catheter Encounter type: subsequent encounter Qualified Description: Urinary tract infection associated with indwelling urethral catheter, subsequent encounter Qualifier Code(s): (T83.511D) Infection and inflammatory reaction due to indwelling urethral catheter, subsequent encounter, (N39.0) Urinary tract infection, site not specified (2) Osteoarthritis of right hip Current Visit: Yes Status: Chronic Qualifiers: Osteoarthritis type: primary Qualified Description: Primary osteoarthritis of right hip Qualifier Code(s): (M16.11) Unilateral primary osteoarthritis, right hip (3) COPD exacerbation Current Visit: Yes Status: Resolved (4) Lung nodules Current Visit: Yes Status: Chronic (5) Weakness Current Visit: Yes Status: Acute (6) Coronary artery disease Current Visit: Yes Status: Chronic Qualifiers: Coronary Disease-Associated Artery/Lesion type: [place] artery [place] vs. transplanted heart: platinum heart Associated angina: without angina Qualified Description: Coronary artery disease involving platinum coronary artery of platinum heart without angina pectoris Qualifier Code(s): (I25.10) Atherosclerotic heart disease of platinum coronary artery without angina pectoris (7) Urinary retention Current Visit: No Status: Acute - Assessment / Plan Additional Assessment/Plan Details: I think the patient would be okay to have surgery here. The patient is not having any anginal chest pains since being placed on isosorbide. He is not having shortness of breath. And he is completely limited in his motion. If anything, from a postoperative perspective, I worry about his ability to rehabilitate from a hip replacement, but his pain is so severe he is completely limited in his motion and is having a difficult time even doing bed to chair transfers. With close telemetry monitoring, postoperative BNP, troponin levels , I think we can manage this patient here and transfer acutely if if the situation changes from a cardiac perspective. In terms of the patient's anemia, this is been iron deficient in the past but I do not believe he is responding to by mouth iron as his hemoglobin and hematocrit have not changed much. He is planning an outpatient EGD and colonoscopy workup. No further workup for the lung nodule per the patient or his . This is been chronic. They were apparently told it was due to reaction to some sort of aspirated seed past. senior living tomorrow. I spoke with patient's primary care provider regarding potential follow-up plans and they will take it from there. 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 Photo / Body Diagrams - Uploaded Photos Uploaded Photos:
[2017-01-09] MEDS: FORMOTEROL FUMARATE INH SCH ×2 (17:14→19:44)
[2017-01-09] MEDS: BUDESONIDE INH SCH ×2 (17:14→19:44)
[2017-01-09] MEDS: TIOTROPIUM BROMIDE 18 MCG CAPSULE INH SCH (19:43)
[2017-01-09] MEDS: Terazosin Cap 5 MG CAP PO SCH (20:10)
[2017-01-09] MEDS: FINASTERIDE 5 MG TABLET PO SCH (20:10)
[2017-01-09] MEDS ORDERED: Fleet Enema w/Mineral Oil 133ml RECTAL PRN (22:33)
[2017-01-10] MEDS: HYDROcodone-APAP 5 MG -325 MG TABLET PO PRN ×3 (00:16→12:44)
[2017-01-10] MEDS: BUDESONIDE INH SCH (06:28)
[2017-01-10] MEDS: FORMOTEROL FUMARATE INH SCH (06:28)
[2017-01-10] MEDS ORDERED: Iron Sucrose Inj 500 MG in Sodium Chloride 0.9% 250 ML IV ONE (07:01)
[2017-01-10] MEDS: NORMAL SALINE 10 ML SYRINGE FLUSH IVP PRN (07:31)
[2017-01-10] MEDS ORDERED: MAGNESIUM 400 MG/5 ML - 30 ML (MILK OF MAGNESIA) PO ONE (08:07)
[2017-01-10] MEDS ORDERED: Fleet Enema w/Mineral Oil 133ml RECTAL ONE (08:07)
[2017-01-10] MEDS: ASPIRIN 325 MG TABLET PO SCH (08:31)
[2017-01-10] MEDS: VENLAFAXINE XR 75 MG CAP PO SCH (08:31)
[2017-01-10] MEDS: GABAPENTIN 300 MG CAPSULE PO SCH (08:31)
[2017-01-10] MEDS: ISOSORBIDE MONONITRATE 30 MG SR 24H TABLET PO SCH (08:31)
[2017-01-10] MEDS: ENOXAPARIN SODIUM 40 MG/0.4 ML SYRINGE SUBCUT SCH (08:31)
[2017-01-10] MEDS: CLOPIDOGREL 75 MG TABLET PO SCH (08:31)
[2017-01-10] MEDS: Metoprolol TARTRATE Tab 25 MG TAB PO SCH (08:31)
--- NOTE | 2017-01-10 08:35 | DCSUMMARY ---
Hospitalization Summary Admit Date: 01/03/17 Discharge Date: 01/10/17 Primary Diagnosis:: UTI, catheter associated, present on admission Hospital Course: This is a very pleasant 71-year-old male that has Parkinson's disease, and was admitted in the setting of a urinary tract infection with catheter, present on admission, although culture eventually came out negative. Antibiotics were stopped. He was also noted to have many falls at home. 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 He has underlying coronary artery disease although currently stable and no symptoms of chest pain after addition of isosorbide to his medication regimen. He no longer is having anginal symptoms or shortness of breath. He has COPD which was treated here in the hospital stay but he did not have a severe exacerbation to warrant antibiotics. Through the hospital stay, became clear that the patient could not cope at home due to this significant right hip arthritis and he is going to have to go to the skilled nursing for some time. His approach to see if the patient could go [facility] and the except of the patient. His main problems last couple of days of having constipation and we also know that he has anemia, which may require an EGD and colonoscopy later as an outpatient. In the meantime, he is not responding to by mouth iron therapy so I 've given him a dose of IV iron therapy, which can be repeated in 2 weeks. I stop several medications during the hospital stay as well. There is some questions as to whether or not the patient might have confusion, but as I stop several medications, FAC ENGINEER interactions seemed to decrease. He has been on Neurontin for what appears to be restless leg syndrome but I think that may be related to his anemia more than anything. Iron therapy should help that with time. Given the resolution of urinary tract infection issues, continuation of trying to get patient set up for a right hip replacement, continue needs for physical therapy and occupational therapy, patient was subsequently discharged to [facility] on 01/10/2017. Today, the patient had no complaints of chest pain or shortness breath. He states that his right hip is hurting him. Assessment and Plan: 1. As per discharge assessments noted 2. Disposition: Patient is discharged to [facility] 3. Condition on discharge, stable and improved. 4. Diet: regular diet 5. Activities: Per PT and OT 6. Follow-Up: 1. Dr. Logan will assume the patient's care at the skilled nursing 2. Orthopedics to discuss right hip 3. Eventual EGD and colonoscopy. 7. Medications at the Time of Discharge: Home Medications Medication Instructions Recorded Confirmed Type Albuterol Sulfate [ALBUTEROL HFA] 2 inh PO QID PRN 09/11/11 01/03/17 History Aspirin 1 tab PO DAILY 09/11/11 01/03/17 History Calcium Carbonate/Vitamin D3 1 tab PO TID 09/11/11 01/03/17 History [Calcium 600 with Vit D Tab] Clopidogrel [Plavix] 1 tab PO DAILY 09/11/11 01/03/17 History Nitroglycerin SL Tab [Nitrostat 0.4 mg SL Q5M PRN MDD 3 09/11/11 01/03/17 History SL Tab] Simvastatin [Zocor] 40 mg PO BEDTIME 09/11/11 01/03/17 History Terazosin HCl 10 mg PO BEDTIME 09/11/11 01/03/17 History Tiotropium [place] [Spiriva] 1 inh INH DAILY@1900 09/11/11 01/03/17 History Sennosides [Senna] 1 cap PO BID 30 Days 10/20/13 01/03/17 History Metoprolol Tartrate Tab 25 mg PO BID 11/01/13 01/03/17 History [Lopressor Tab] Isosorbide Mononitrate [Isosorbide 30 mg PO DAILY #90 tab 12/26/15 01/03/17 Clinic Mononitrate ER] Gabapentin 1 tab PO TID tab 05/09/16 01/03/17 History Trihexyphenidyl HCl 2 tab PO BEDTIME 12/31/16 01/03/17 History Trihexyphenidyl HCl 3 tab PO QAM 12/31/16 01/03/17 History Finasteride 5 mg PO BEDTIME 01/02/17 01/03/17 History Venlafaxine HCl ER [Effexor Xr] 225 mg PO DAILY 01/06/17 01/06/17 History Gabapentin [Neurontin] 300 mg PO TID #90 cap 01/10/17 Rx HYDROcodone/APAP 5/325 Tab [[place] 1 tab PO Q4H PRN #120 tab 01/10/17 Rx 5/325 Tab] Polyeth Glycol 3350 Packet 17 gm PO DAILY PRN #30 01/10/17 01/03/17 Rx [Miralax Packet] 8. Time, care, counseling and coordination of care for this discharge is greater than 30 minutes. Exam - Vitals Vital Signs: Vital Signs Temperature 97.4 F Temperature Source Temporal Artery Scan Pulse Rate [Apical] 64 Pulse Rate [Pulse Oximeter] 68 Pulse Rate 56 Respiratory Rate 20 Blood Pressure [Right Arm] 123/76 Blood Pressure 128/78 Pulse Ox 95 Oxygen Flow Rate 3 Oxygen Delivery Method Nasal Cannula Height 5 ft 9 in Weight 183 lb - General General Appearance: POSITIVE: No Acute Distress, Cooperative - Eye Eye Exam: POSITIVE: No Scleral Icterus - ENT ENT Exam: POSITIVE: Mucous Membranes Moist - Respiratory Respiratory Exam: POSITIVE: Clear to Auscultation - Bilaterally, Breathing Non Labored - Cardiovascular Cardiovascular Exam: POSITIVE: RRR, No Murmur, No Clicks, No Gallops, No Rubs, No JVD - GI/Abdominal GI/Abdominal Exam: POSITIVE: Normal Bowel Sounds, Non Tender, Non Distended, Soft - Extremities Extremities Exam: POSITIVE: No Clubbing Present, No Edema Present, No Cyanosis Present - Neurological Neurological Exam: POSITIVE: Alert, Oriented x 3, No Facial Droop, Speech Intact / Clear, Moves All Extremities Equally Data Perinent Studies: Laboratory Results 01/03/17 01/03/17 01/03/17 Range/Units 17:27 17:28 17:29 WBC 4.91 (4.8-10.8) 10^3/uL RBC 3.78 L (4.70-6.10) 10^6/uL Hgb 10.6 L (14.0-18.0) g/dL Hct 34.2 L (42.0-52.0) % MCV 90.5 H (80-90) FL MCH 28.0 (27-31) PG MCHC 31.0 L (33-37) g/dL RDW Std Deviation 42.6 (39-50) fL RDW Coeff of Robert 13.3 (11.5-14.5) % Plt Count 263 (140-350) 10*3/uL MPV 8.0 (7.4-12.2) FL Immature Gran % (Auto) 0 (0-5) % Neut % (Auto) 62.2 (50-80) % Lymph % (Auto) 18.5 (10-50) % [place] % (Auto) 12.4 (5-15) % Eos % (Auto) 6.7 (0-8) % Baso % (Auto) 0.2 (0-1) % Immature Gran # (Auto) 0 10*3/UL Neut # (Auto) 3.05 10*3/UL Lymph # (Auto) 0.91 10*3/uL [place] # (Auto) 0.61 (0.3-0.8) 10*3/UL Eos # (Auto) 0.33 10*3/UL Baso # (Auto) 0.01 10*3/UL WBC Morphology Comment Normal morphology (NORM) Plt Morphology Comment Normal morphology (NORM) RBC Morph Comment Normal morphology (NORM) Sodium 141 (135-145) meq/L Potassium 4.2 (3.8-5.2) meq/L Chloride 100 (98-112) meq/L Carbon Dioxide 30 (23-33) meq/L Anion Gap 11 (5-20) BUN 12 (7-22) mg/dL Creatinine 0.7 (0.70-1.50) mg/dL Estimated GFR (>60 ml/min/1.73m(2)) BUN/Creatinine Ratio 17.14 (6-20) Glucose 117 H (78-110) mg/dL Calculated Osmolality 292.0 (267-292) mOsm/kg Calcium 9.0 (8.7-10.7) mg/dL Magnesium 2.1 (1.6-2.4) mg/dL Iron (49-181) UG/DL TIBC (261-462) ug/dL % Saturation (14-50) % Total Bilirubin 0.6 (0.3-1.2) mg/dL AST 22 (21-57) IU/L ALT 23 (21-72) IU/L Alkaline Phosphatase 81 (38-126) IU/L Total Creatine Kinase 60 (55-170) IU/L Troponin I < 0.012 (< 0.040) ng/mL C-Reactive Protein 3.2 H (0.0-0.9) mg/dL Total Protein 6.4 (6.1-8.0) g/dL Albumin 3.4 L (3.5-4.8) g/dL Globulin 3.0 (2.50-4.10) g/dL Albumin/Globulin Ratio 1.10 L (1.3-2.0) mg/g Ur Collection Type Clean catch urine Urine Color Yellow Urine Clarity Slightly cloudy (CLEAR) Urine pH 7.0 (5.0-8.5) Ur Specific [place] 1.010 (1.005-1.030) Urine Protein Negative (NEG) mg/dl Urine Glucose (UA) Negative (NEG) mg/dL Urine Ketones Negative (NEG) Urine Occult Blood Moderate H (NEG) Urine Nitrate Negative (NEG) Urine Bilirubin Negative (NEG) Urine Urobilinogen 0.2 (0.2) EU/dL Ur Leukocyte Esterase Moderate (NEG) Urine RBC 1-3 (NONE) /hpf Urine WBC 8-10 (NONE) Ur Squamous Epith Cells Rare (NONE) Ur Renal Epithelial Cell None (NONE) Urine Crystals None Urine Bacteria Moderate (NONE) Urine Casts None (NONE) Urine Mucus None (NONE) Urine Trichomonas None (NONE) Urine Yeast None (NONE) Ur Culture Indicated? Culture set 01/04/17 01/06/17 01/09/17 Range/Units 05:05 04:20 14:58 WBC 5.00 5.18 (4.8-10.8) 10^3/uL RBC 3.47 L 3.51 L (4.70-6.10) 10^6/uL Hgb 9.7 L 9.9 L (14.0-18.0) g/dL Hct 31.4 L 32.2 L (42.0-52.0) % MCV 90.5 H 91.7 H (80-90) FL MCH 28.0 28.2 (27-31) PG MCHC 30.9 L 30.7 L (33-37) g/dL RDW Std Deviation 42.3 43.0 (39-50) fL RDW Coeff of Robert 13.2 13.3 (11.5-14.5) % Plt Count 273 234 (140-350) 10*3/uL MPV 8.5 8.2 (7.4-12.2) FL Immature Gran % (Auto) 0.2 0 (0-5) % Neut % (Auto) 52.2 61.2 (50-80) % Lymph % (Auto) 27.8 19.1 (10-50) % [place] % (Auto) 11.0 12.7 (5-15) % Eos % (Auto) 8.4 H 6.6 (0-8) % Baso % (Auto) 0.4 0.4 (0-1) % Immature Gran # (Auto) 0.01 0 10*3/UL Neut # (Auto) 2.61 3.17 10*3/UL Lymph # (Auto) 1.39 0.99 10*3/uL [place] # (Auto) 0.55 0.66 (0.3-0.8) 10*3/UL Eos # (Auto) 0.42 0.34 10*3/UL Baso # (Auto) 0.02 0.02 10*3/UL WBC Morphology Comment Normal morphology Normal morphology (NORM) Plt Morphology Comment Normal morphology Normal morphology (NORM) RBC Morph Comment Normal morphology Normal morphology (NORM) Sodium 139 141 (135-145) meq/L Potassium 4.3 4.3 (3.8-5.2) meq/L Chloride 103 102 (98-112) meq/L Carbon Dioxide 28 31 (23-33) meq/L Anion Gap 8 8 (5-20) BUN 11 11 (7-22) mg/dL Creatinine 0.6 L 0.6 L (0.70-1.50) mg/dL Estimated GFR Software Engineer Kernel Software Engineer Kernel (>60 ml/min/1.73m(2)) BUN/Creatinine Ratio 18.33 18.33 (6-20) Glucose 80 88 (78-110) mg/dL Calculated Osmolality 285.0 289.0 (267-292) mOsm/kg Calcium 8.6 L 8.6 L (8.7-10.7) mg/dL Magnesium (1.6-2.4) mg/dL Iron 26 L (49-181) UG/DL TIBC 255 L (261-462) ug/dL % Saturation 10.19 L (14-50) % Total Bilirubin 0.4 (0.3-1.2) mg/dL AST 18 L (21-57) IU/L ALT 22 (21-72) IU/L Alkaline Phosphatase 69 (38-126) IU/L Total Creatine Kinase (55-170) IU/L Troponin I (< 0.040) ng/mL C-Reactive Protein (0.0-0.9) mg/dL Total Protein 6.1 (6.1-8.0) g/dL Albumin 3.1 L (3.5-4.8) g/dL Globulin 3.0 (2.50-4.10) g/dL Albumin/Globulin Ratio 1.00 L (1.3-2.0) mg/g Ur Collection Type Urine Color Urine Clarity (CLEAR) Urine pH (5.0-8.5) Ur Specific [place] (1.005-1.030) Urine Protein (NEG) mg/dl Urine Glucose (UA) (NEG) mg/dL Urine Ketones (NEG) Urine Occult Blood (NEG) Urine Nitrate (NEG) Urine Bilirubin (NEG) Urine Urobilinogen (0.2) EU/dL Ur Leukocyte Esterase (NEG) Urine RBC (NONE) /hpf Urine WBC (NONE) Ur Squamous Epith Cells (NONE) Ur Renal Epithelial Cell (NONE) Urine Crystals Urine Bacteria (NONE) Urine Casts (NONE) Urine Mucus (NONE) Urine Trichomonas (NONE) Urine Yeast (NONE) Ur Culture Indicated? Patient Problems - Patient Problem List (1) UTI (urinary tract infection) Current Visit: Yes Status: Resolved Qualifiers: Urinary tract infection type: catheter-associated UTI Indwelling urinary catheter type: indwelling urethral catheter Encounter type: subsequent encounter Qualified Description: Urinary tract infection associated with indwelling urethral catheter, subsequent encounter Qualifier Code(s): (T83.511D) Infection and inflammatory reaction due to indwelling urethral catheter, subsequent encounter, (N39.0) Urinary tract infection, site not specified (2) Osteoarthritis of right hip Current Visit: Yes Status: Chronic Qualifiers: Osteoarthritis type: primary Qualified Description: Primary osteoarthritis of right hip Qualifier Code(s): (M16.11) Unilateral primary osteoarthritis, right hip (3) COPD exacerbation Current Visit: Yes Status: Resolved (4) Lung nodules Current Visit: Yes Status: Chronic Comment: these have been noted on prior exams. The patient and his told me no biopsy or additional workup (5) Weakness Current Visit: Yes Status: Acute (6) Coronary artery disease Current Visit: Yes Status: Chronic Qualifiers: Coronary Disease-Associated Artery/Lesion type: [place] artery [place] vs. transplanted heart: [place] heart Associated angina: without angina Qualified Description: Coronary artery disease involving [place] coronary artery of [place] heart without angina pectoris Qualifier Code(s): (I25.10) Atherosclerotic heart disease of [place] coronary artery without angina pectoris (7) Urinary retention Current Visit: Yes Status: Chronic (8) BPH (benign prostatic hypertrophy) with urinary obstruction Current Visit: Yes Status: Acute (9) Tardive dyskinesia Current Visit: Yes Status: Acute
--- NOTE | 2017-01-10 08:59 | OT PM DAY ---
Diagnosis : Weakness PM - Occupational Therapy S: Today the therapist assessed the patient's cognitive abilities. O: Today we went through the functional and routine tasks interview. The patient reports that recently he has been having multiple falls. His has been helping him with almost all activities of daily living. He requires assistance to get out of bed, go to the bathroom, and take a shower. The patient is walking very minimally because of his hip pain. He states his right hip is the main source of pain as well as compression fractures in his back. He also has Parkinson's that is affecting his abilities as well. The therapist tried to have the patient come from supine to sit in order to complete the [place] Cognitive Assessment (MoCa). The patient had severe crepitus of the right hip. Palpation was very much bone on bone and he had functional difficulties coming from supine to sit. Once sitting the patient was only able to sit for approximately two minutes before he was able to lay down. The therapist asked if the patient would like to stand to get some pressure relief off of his back and bottom area. He was able to stand x4 minutes and then walk from the standing position to the head of the bed. The patient had to lay down at a 45 degree angle in order to complete the MoCa. The therapist had the piece of paper on a clipboard so the patient could complete the assessment. Today the patient scored 21 out of 30 which places him in the MILD cognitive impairment range. Visuospatial executive: 3/5 Namin/3 Attention: 6/6 Language: 2/3 Abstraction: 0/2 Delayed recall: 3/5 Orientation: 4/6 A: The patient scored in the MILD cognitive impairment range. He had difficulty thinking abstractly. He did have the day of the week confused and he did not know the date today. His Parkinson's may have affected some of his visuospatial activities. The patient's main concerns are his hip pain and his difficulty transferring himself. The patient's was spoken to and she is having a lot of stress at home. The patient has fallen on his many times and it is strenuous to her body to pick him up. She knows that the patient needs to go to the Care Center for a while before he can even think about coming home and that he needs to become more independent with his functional transfers. P: Continue seeing patient BID during the week and one time per day over the weekend until discharge. MTDD
--- NOTE | 2017-01-10 11:16 | PT.PROG ---
Progress Note Progress Note: S. Patient stated that he did not want to leave his bed, he states that he is constipated and not feeling well. O. Patient performed supine exercises in the form of; heel slides, quad sets, hip abduction/adduction all on left ankle pumps glute squeezes bilaterally all x 10. Patient was left in bed with alarm and call light. A. Patient tolerated exercises fair, he continues to struggle with pain in his hip and back. Patient would continue to benefit from skilled therapy to increase mobility and decrease pain this can be addressed at the care center. P. Continue POC.
[2017-01-10 12:50] VITALS: RESP 16; TEMP 97.8
--- NOTE | 2017-01-10 15:29 | OT AM DAY ---
Diagnosis : Weakness AM - Occupational Therapy S: The patient reports he is willing to come down to therapy. O: Today the patient was sitting in the chair when the therapist arrived. The patient required mod assist to complete upper extremity dressing. The patient required max assist for lower extremity dressing. He has difficulty bending over because of his hip and because of his tremors from the Parkinson's , he is not necessarily appropriate for adaptive equipment at this point in time. The patient reports that his usually helps him dress daily. The patient was able to stand and the therapist assisted with getting a weight. The patient required min assist in transferring from sit to stand. Once standing, the patient required contact guard to min assist for balance. The patient was then able to transfer to the wheelchair with contact guard assist, which was approximately 10 feet away. Downstairs in therapy the patient transferred from wheelchair to mat with min assist. The patient then transferred from sit to supine with max assist. While supine, the patient completed upper extremity strengthening activities with red theraband including biceps curls, internal/external rotation, shoulder extension, triceps, shoulder adduction, and PNF patterns. A: The patient is making gains. P: Continue seeing patient BID during the week and one time per day over the weekend for upper extremity strengthening, ADLs, and overall functional mobility. MTDD
--- NOTE | 2017-01-10 16:11 | OT AM DAY ---
Diagnosis : Weakness AM - Occupational Therapy S: The patient reports pain in the right hip down to his knee. He states he does not want to get out of bed this morning because he knows he is leaving for the assisted, which he appears to be okay with. O: The patient was seen in his room due to not wanting to get out of bed. The patient completed therapeutic exercises in a supine position. He completed active range of motion activities with bilateral upper extremities in shoulder flexion, shoulder abduction, biceps flexion, and triceps extension, all x15 bilaterally to maintain motion and to make sure he is functional with his upper extremities to assist with transfers due to the severe pain in his right hip. A: The patient may benefit from some therapy once he discharges to the assisted to increase his overall function. P: Patient will discharge to the assisted this afternoon. ROCIO
== END 2017-01-10 13:16 | DRG 690 ==
LOC: ER 17:21 → MED/SURG 20:05
PROVIDERS: ADMIT Internal Medicine; ATTEND Internal Medicine
DX: N39.0 Urinary tract infection, site not specified (principal); S32.019A Unspecified fracture of first lumbar vertebra, initial encounter for closed fracture; W18.30XA Fall on same level, unspecified, initial encounter; J44.1 Chronic obstructive pulmonary disease with (acute) exacerbation; Y84.6 Urinary catheterization as the cause of abnormal reaction of the patient, or of later complication, without mention of misadventure at the time of the procedure; G20 Parkinson's disease; M16.11 Unilateral primary osteoarthritis, right hip; R91.8 Other nonspecific abnormal finding of lung field; R53.1 Weakness; I25.10 Atherosclerotic heart disease of native coronary artery without angina pectoris; R33.9 Retention of urine, unspecified; N40.0 Benign prostatic hyperplasia without lower urinary tract symptoms; G24.01 Drug induced subacute dyskinesia; E86.0 Dehydration
CPT/HCPCS: 36415; 70450; 71260; 72040; 72100; 73502; 74176; 80048; 80053; 81001; 81003; 82550; 83540; 83550; 83735; 84484; 85025; 86140; 87088; 93005; 93010; 94640; 94761; 97110; 97161; 97166; 97530; 97535; 99284; J0698; J1170; J1650; J1756; J1885; J2405; J7030; J7050; J7120

== ENCOUNTER → 2017-02-18 | Outpatient (CLI) | payer OTHER ==
--- NOTE | 2017-02-18 14:01 | EKG ---
[address] [address] Measurements Intervals [place] Rate: 72 P: 95 AK: 203 QRS: 34 QRSD: 82 T: 74 QT: 376 QTc: 400 Interpretive Statements SINUS RHYTHM Compared to ECG 01/03/2017 17:42:40 No significant changes Electronically Signed On 02-18-17 15:02:51 MDT by Marco Noe [id number]
== END ==
LOC: MOB EKG 13:46
PROVIDERS: ATTEND Specialist
DX: M25.551 Pain in right hip (principal); M16.12 Unilateral primary osteoarthritis, left hip; I10 Essential (primary) hypertension; I25.10 Atherosclerotic heart disease of native coronary artery without angina pectoris; I35.0 Nonrheumatic aortic (valve) stenosis; J44.9 Chronic obstructive pulmonary disease, unspecified; N40.0 Benign prostatic hyperplasia without lower urinary tract symptoms; D50.0 Iron deficiency anemia secondary to blood loss (chronic); G24.01 Drug induced subacute dyskinesia
CPT/HCPCS: 93005; 93010; 99213

== ENCOUNTER → 2017-03-05 | Outpatient (CLI) | payer OTHER ==
[2017-03-05 14:16] LABS: HEMATOCRIT 40.1 % (42.0-52.0); HEMOGLOBIN 12.5 g/dL (14.0-18.0); MEAN CORPUSCULAR HEMOGLOBIN 28.2 PG (27-31); MEAN CORPUSCULAR HGB CONC 31.2 g/dL (33-37); MEAN CORPUSCULAR VOLUME 90.5 FL (80-90); MEAN PLATELET VOLUME 7.4 FL (7.4-12.2); RED BLOOD COUNT 4.43 10^6/uL (4.70-6.10)
[2017-03-05 14:59] LABS: BUN/CREATININE RATIO 17.5 (6-20)
--- NOTE | 2017-03-05 18:01 | DI ---
AP /LATERAL CHEST X-RAY, 03/05/2017 2:44 PM : Clinical History: N 31.9. Previous Exam: 01/18/2016. There is no acute soft tissue or bony abnormality. The heart size is at the upper limits of normal. T here is no CHF. Lungs are clear. Mediastinal structures are normal. There are no pulmonary nodules. Reading: Normal chest x-ray. There has been no interval change.
== END ==
LOC: LAB 13:55
PROVIDERS: ATTEND Nurse Practitioner
DX: M16.11 Unilateral primary osteoarthritis, right hip (principal); N31.9 Neuromuscular dysfunction of bladder, unspecified
CPT/HCPCS: 36415; 71020; 80053; 84134; 85027; 85610; 85730; 87641

== ENCOUNTER → 2017-03-21 | Outpatient (CLI) | payer OTHER ==
--- NOTE | 2017-03-21 10:16 | PE ---
[facility] [place] Statements Electronically Signed On 03-24-17 07:54:09 MDT by Emile Gutierrez MD [id number]
== END ==
LOC: RT 08:56
PROVIDERS: ATTEND Internal Medicine
DX: J44.9 Chronic obstructive pulmonary disease, unspecified (principal); R06.02 Shortness of breath; R09.02 Hypoxemia
CPT/HCPCS: 94060

== ENCOUNTER 2017-03-25 12:23 | Inpatient (IN) | payer OTHER ==
[2017-03-25] MEDS ORDERED: ACETAMINOPHEN 325 MG TABLET PO ONE (13:03)
[2017-03-25] MEDS ORDERED: NORMAL SALINE 10 ML SYRINGE FLUSH IVP PRN ×3 (13:03→16:24)
[2017-03-25] MEDS ORDERED: Sodium Chloride 0.9% 1,000 ML PRIMARY IV ONE ×2 (13:03→14:13)
[2017-03-25] MEDS ORDERED: Acetaminophen 1000mg Inj 1,000 MG in Premix 1 BAG IV ONE ×2 (13:11→20:53)
[2017-03-25] MEDS ORDERED: Ertapenem Inj 1 GM in Sodium Chloride 0.9% 100 ML IV ONE (13:13)
[2017-03-25 13:14] LABS: BUN/CREATININE RATIO 24.44 (6-20); SERUM ALBUMIN 3.9 g/dL (3.5-4.8)
--- NOTE | 2017-03-25 13:26 | EKG ---
[address] [address] Measurements Intervals [place] Rate: 91 P: 267 VT: 181 QRS: 23 QRSD: 89 T: 66 QT: 373 QTc: 421 Interpretive Statements ECTOPIC ATRIAL RHYTHM ABNORMAL RHYTHM ECG Compared to ECG 02/18/2017 13:59:52 Ectopic atrial rhythm now present Sinus rhythm no longer present Electronically Signed On 03-25-17 15:36:54 MDT by Marco Noe [id number]
[2017-03-25 13:29] LABS: MAGNESIUM 1.9 mg/dL (1.6-2.4)
[2017-03-25 13:33] LABS: BASOPHILS % (AUTO) 0.1 % (0-1); CREATINE KINASE MB 2.6 NG/ML (0.00-5.00); EOSINOPHILS % (AUTO) 0 % (0-8); HEMATOCRIT 36.6 % (42.0-52.0); MEAN CORPUSCULAR HEMOGLOBIN 28.7 PG (27-31); MEAN CORPUSCULAR HGB CONC 32.8 g/dL (33-37); MEAN CORPUSCULAR VOLUME 87.6 FL (80-90); MEAN PLATELET VOLUME 8.2 FL (7.4-12.2); MONOCYTES % (AUTO) 8.5 % (5-15); NEUTROPHILS % (AUTO) 89.3 % (50-80); RED BLOOD COUNT 4.18 10^6/uL (4.70-6.10); TROPONIN I 0.038 ng/mL (< 0.040)
[2017-03-25 13:34] LABS: BASOPHILS # (AUTO) 0.01 10*3/UL; EOSINOPHILS # (AUTO) 0 10*3/UL; LYMPHOCYTES # (AUTO) 0.21 10*3/uL; MONOCYTES # (AUTO) 1.11 10*3/UL (0.3-0.8); NEUTROPHILS # (AUTO) 11.67 10*3/UL; PLATELET MORPHOLOGY COMMENT NORMAL MORPHOLOGY (NORM); RBC MORPHOLOGY COMMENT NORMAL MORPHOLOGY (NORM); WBC MORPHOLOGY COMMENT NORMAL MORPHOLOGY (NORM)
[2017-03-25 13:40] LABS: C-REACTIVE PROTEIN 17.4 mg/dL (0.0-0.9)
[2017-03-25 13:50] LABS: ABG BASE EXCESS -1 MMOL/L (-2-2); ABG PCO2 33 MMHG (34-38); ABG PH 7.45 (7.35-7.45); ABG PO2 102 MMHG (65-75); COLLECTION SITE L RADIAL
[2017-03-25 13:51] LABS: ABG OXYGEN SATURATION 98 % (90-100); ALLEN TEST Y
[2017-03-25 13:55] LABS: BILIRUBIN,URINE NEGATIVE (NEG); CLARITY,URINE TURBID (CLEAR); COLOR,URINE RED; GLUCOSE, URINE (UA) NEGATIVE (NEG); NITRATE,URINE NEGATIVE (NEG); OCCULT BLOOD,URINE LARGE (NEG); PH,URINE >=9.0 (5.0-8.5); PROTEIN,URINE >300 mg/dl (NEG); UROBILINOGEN,URINE 0.2 EU/dL (0.2)
[2017-03-25 13:58] LABS: RBC,URINE >100 /hpf; URINE SAMPLE TYPE CATH SPECIMEN
[2017-03-25 13:59] LABS: BACTERIA,URINE MANY; URINE CRYSTALS MANY
[2017-03-25] MEDS ORDERED: Norepinephrine Drip 8 MG in D5W 250 ML IV SCH ×2 (14:15→16:24)
[2017-03-25] MEDS ORDERED: NOREPINEPHRINE BITARTRATE 4 MG/4 ML VIAL IV ONE (14:22)
--- NOTE | 2017-03-25 14:38 | DI ---
CT HEAD W/O CONTRAST,03/25/2017 1:03 PM: Clinical History: Decreased level of consciousness. Previous Exam: 01/03/17 Findings: Multiple helically acquired CT images are obtained through the brain without contrast, and demonstrat e diffuse age-related volume loss. There is no mass, hemorrhage or midline shift. The surrounding sof t tissue and osseous structures are unremarkable and stable. Impression: Diffuse age-related volume loss otherwise unremarkable.
--- NOTE | 2017-03-25 14:40 | DI ---
XR CXR 1VW,03/25/2017 1:03 PM: Clinical History: Fever Previous Exam: 03/05/17 Findings: A single frontal radiograph of the chest is obtained, and demonstrate some increased density within t he right lung base. There is mild prominence of the cardiomediastinum. Impression: No acute cardiopulmonary disease.
[2017-03-25] MEDS ORDERED: HEPARIN 500 UNIT/5 ML SYRINGE FOR CENTRAL LINE IVP ONE (15:41)
[2017-03-25] MEDS ORDERED: LIDOCAINE W/ SODIUM BICARB 0.5 ML SYR SUBD PRN (16:24)
[2017-03-25] MEDS ORDERED: HEPARIN 500 UNIT/5 ML SYRINGE FOR CENTRAL LINE IVP PRN (16:24)
[2017-03-25] MEDS ORDERED: LIDOCAINE 2% 20 MG/ML - 20 ML VIAL SUBCUT PRN (16:24)
[2017-03-25] MEDS ORDERED: Lidocaine 1% 10 MG/ML - 20 ML VIAL SUBCUT PRN (16:24)
[2017-03-25] MEDS ORDERED: Cefotaxime Inj 2 GM in Sodium Chloride 0.9% 100 ML IV SCH (17:00)
--- NOTE | 2017-03-25 17:55 | PDOC(PROG) ---
General Note Progress Note: After obtaining informed written consent for central venous line placement, and discussion of risks and benefits, patient wished to proceed. He was placed recumbent with his head reflected towards the left exposing the right anterior lateral neck. This was difficult because of the patient's limited range of motion. Ultrasound was utilized to identify the internal jugular vein and internal carotid artery. Jugular was compressible. His skin was prepped with chlorhexidine and draped in a sterile manner. Skin was anesthetized with 1% plain lidocaine. Using sterile Seldinger technique and introducer needle was observed to pass into the lumen of the jugular and dark venous blood was obtained that was nonpulsatile. Neck was made in the skin with an 11 blade and then the dilator was passed over the wire to the hilt and withdrawn. A 3 lm central venous line was then passed without difficulty, and the introducer wire was withdrawn. Blood was aspirated from all 3 lm and flushed with saline. Postprocedural chest x-ray was obtained interpreted by me showing distal tip of the catheter at the level of the left atrium, no pneumothorax is appreciated. Catheter was cleared for use by me. Patient tolerated this procedure well.
[2017-03-25 17:58] LABS: VENOUS PH 7.42 (7.32-7.42)
[2017-03-25 18:07] LABS: CALCIUM 8.4 mg/dL (8.7-10.7); SERUM ALBUMIN 3.3 g/dL (3.5-4.8)
--- NOTE | 2017-03-25 18:27 | EKG ---
[address] [address] Measurements Intervals [place] Rate: 84 P: -25 ND: 158 QRS: 42 QRSD: 89 T: 80 QT: 379 QTc: 420 Interpretive Statements Atrial fibrillation or persistant ectopic atrial rhythm (baseline noise compromises reading) MINIMAL ST DEPRESSION [0.025+ mV ST DEPRESSION] INTERPRETATION BASED ON A DEFAULT AGE OF 40 YEARS Compared to ECG 03/25/2017 13:21:43 ST (T wave) deviation now present Electronically Signed On 03-26-17 09:04:08 MDT by Emile Gutierrez MD [id number]
[2017-03-25 18:31] LABS: HEMATOCRIT 31.7 % (42.0-52.0); HEMOGLOBIN 10.4 g/dL (14.0-18.0); MEAN CORPUSCULAR HEMOGLOBIN 29.1 PG (27-31); MEAN CORPUSCULAR HGB CONC 32.8 g/dL (33-37); MEAN CORPUSCULAR VOLUME 88.5 FL (80-90); RED BLOOD COUNT 3.58 10^6/uL (4.70-6.10)
[2017-03-25 18:32] LABS: MEAN PLATELET VOLUME 7.7 FL (7.4-12.2); PLATELET MORPHOLOGY COMMENT NORMAL MORPHOLOGY (NORM); RBC MORPHOLOGY COMMENT NORMAL MORPHOLOGY (NORM); WBC MORPHOLOGY COMMENT NORMAL MORPHOLOGY (NORM)
[2017-03-25 18:33] LABS: BAND NEUTROPHILS % 24 % (0-10); BASOPHILS % (MANUAL) 0 % (0-1); EOSINOPHILS % (MANUAL) 0 % (0-8); LYMPHOCYTES % (MANUAL) 3 % (10-50); MONOCYTES % (MANUAL) 2 % (0-12); NEUTROPHILS % (MANUAL) 71 % (50-80)
[2017-03-25] MEDS: Sodium Chloride 0.9% 500 ML PRIMARY IV SCH ×2 (18:43→18:44)
[2017-03-25] MEDS: Sodium Chloride 0.9% 1,000 ML PRIMARY IV SCH (19:57)
[2017-03-25] MEDS ORDERED: Sodium Chloride 0.9% 100 ML IV ONE (20:04)
[2017-03-25] MEDS: Cefotaxime Inj 2 GM in Sodium Chloride 0.9% 100 ML IV SCH (20:45)
--- NOTE | 2017-03-25 20:51 | PDOC ---
History and Physical - History of Present Illness Date and Time of Service: 25 March 2017, 2050 hrs Chief Complaint: Urinary sepsis. This morning patient was confused and found to have a temperature greater than 103. EMS was contacted and he was brought to the emergency department for further evaluation. History of Present Illness: This morning patient was confused, is felt hot, temperature check revealed temperature to over 103. He pulled out his Smith catheter and subsequently had hematuria. He was brought to the emergency department for further evaluation. Smith catheter was placed in the emergency department, blood cultures were obtained, urine cultures were obtained. Because he was neglecting his left side there was concern for CVA.History could not be obtained as patient was confused. He was hypotensive and in septic shock. Presumably from urine. Past Medical History Medical History: 1. Hypertension. 2. Coronary artery disease with previous stents in 2006, recent stress test showed mild apex ischemia that is likely not interventional. 3. COPD on oxygen, 3.5 L/m. 4. Chronic pain syndrome. 5. PTSD. 6. Osteoporosis. 7. BPH. 8. Strongly suspect tardive dyskinesia Surgical History: Appendectomy. Stents (coronary) Family History: Reviewed an Not Pertinent Pertinent Family History: Does not know family history per my review of the medical records. Past Social History: Patient used to smoke. Is . Has children. He is not very active, with most of his exercising walking around his house. Does not drink alcohol. Tobacco Use: Never Smoker Substance Use Type: None, Opiate Pain Medication Alcohol Use: None Medication / Allergies Home Medications: Home Medications Medication Instructions Recorded Confirmed Type Calcium Carbonate/Vitamin D3 1 tab PO TID 09/11/11 03/25/17 History [Calcium 600 With Vit D Tab] Nitroglycerin SL Tab [Nitrostat 0.4 mg SL Q5M PRN MDD 3 09/11/11 03/25/17 History SL Tab] Tiotropium [place] [Spiriva] 1 inh INH DAILY@1900 09/11/11 03/25/17 History Metoprolol Tartrate Tab 1 tab PO QD 11/01/13 03/25/17 History [Lopressor Tab] Isosorbide Mononitrate [Isosorbide 30 mg PO DAILY #90 tab 12/26/15 03/25/17 Clinic Mononitrate ER] Gabapentin 1 tab PO TID tab 05/09/16 03/25/17 History Trihexyphenidyl HCl 2 tab PO BEDTIME 12/31/16 03/25/17 History Trihexyphenidyl HCl 3 tab PO QAM 12/31/16 03/25/17 History Finasteride 1 tab PO QHS 01/02/17 03/25/17 History Venlafaxine HCl ER [Effexor Xr] 225 mg PO DAILY 01/06/17 03/25/17 History Bisacodyl EC Tab [Dulcolax Tab] 2 tab PO BID PRN tab 01/13/17 03/25/17 History Budesonide/Formoterol Fumarate 2 puff INH BID inh 01/13/17 03/25/17 History [Symbicort] Calcium Carbonate [Tums] 1 - 2 tab PO Q6H PRN tab 01/13/17 03/25/17 History Ferrous Gluconate [Fergon] 1 tab PO BID tab 01/13/17 03/25/17 History Guaifenesin [Mucinex] 1 tab PO QD tab 01/13/17 03/25/17 History Mag Hydrox/Al Hydrox/Simeth 20 ml PO Q6H PRN ml 01/13/17 03/25/17 History [Leilani-Lanta Liquid] Simvastatin 1 tab PO QHS tab 01/13/17 03/25/17 History Terazosin HCl 1 cap PO QHS cap 01/13/17 03/25/17 History Hydrocodone/Acetaminophen [[place] 1 tab PO Q4H tab 01/21/17 03/25/17 History 10-325 Tablet] Citric AC/Gluconolact/Mag Carb 30 ml IR QD 03/04/17 03/25/17 History [Renacidin Irrigation Solution] Aspirin 81 mg PO DAILY 03/25/17 03/25/17 History Allergies/Adverse Reactions: Allergies Allergy/AdvReac Type Severity Reaction Status Date / Time No Known Drug Allergies Allergy NOT Verified 03/27/17 06:59 APPLICABLE PAIN CONTRACT AdvReac Unknown NOT Uncoded 03/27/17 06:59 APPLICABLE Review of Systems - Review of Systems ROS Unobtainable: Due to Mental Status (altered and septic.) Exam - Vitals Vital Signs: Vital Signs Temperature 98.1 F Temperature Source Oral Pulse Rate [Apical] 85 Pulse Rate [Telemetry] 85 Pulse Rate 85 Respiratory Rate 27 Blood Pressure [Left Arm] 108/86 Blood Pressure 91/63 Pulse Ox 93 Oxygen Flow Rate 4 Oxygen Delivery Method Nasal Cannula Height 5 ft 9 in Weight 198 lb 12.8 oz - General General Appearance: POSITIVE: Cooperative, Disheveled - Head Head Exam: POSITIVE: Normal Inspection, Normocephalic - Eye Eye Exam: POSITIVE: Normal Appearance, PERRL, EOMI, No Scleral Icterus - ENT ENT Exam: POSITIVE: Normal Exam, Normal External Ear Exam, Normal Oropharynx, Mucous Membranes Dry - Neck Neck Exam: POSITIVE: Normal Inspection, Full ROM, No Tenderness, No Lymphadenopathy, No Thyromegaly, JVP is not Raised - Respiratory Respiratory Exam: POSITIVE: Clear to Auscultation - Bilaterally, Breathing Non Labored, Normal To Percussion, Normal to Percussion and Palpation - Cardiovascular Cardiovascular Exam: POSITIVE: RRR, No Murmur, No Clicks, No Gallops, No Rubs - GI/Abdominal GI/Abdominal Exam: POSITIVE: Normal Bowel Sounds, Non Tender, Non Distended, Soft, No Masses, No Hepatomegaly, No Splenomegaly, No Organomegaly - Rectal Rectal Exam: POSITIVE: Deferred - Exam: POSITIVE: Smith Catheter in Place Additional Exam Details: Penis has been eroded secondary to long-term Smith catheter placement. He is presently having hematuria and leakage of serosanguineous-type fluid around his Smith catheter. - Extremities Extremities Exam: POSITIVE: Normal Inspection, Full ROM (Full range of motion for all extremities except his right lower extremity), Normal Capillary Refill, No Cyanosis Present, Tenderness Additional Extremities Exam Details: Chronic right hip fracture - Back Back Exam: POSITIVE: Normal Inspection - Neurological Neurological Exam: POSITIVE: CN II-XII Intact, No Facial Droop, Altered - Psychiatric Psychiatric Exam: POSITIVE: Normal Affect, Normal Mood - Integumentary Integumentary Exam: POSITIVE: Normal Color, Warm, Dry, Intact - Central Line Examination Central Line Present on Admission: No Results - Labs CBC and BMP: 03/26/17 06:39 03/26/17 06:39 Labs - Last 24 Hours: Laboratory Results 03/25/17 03/25/17 03/25/17 Range/Units 17:52 17:55 18:09 WBC 11.82 H (4.8-10.8) 10^3/uL RBC 3.58 L (4.70-6.10) 10^6/uL Hgb 10.4 L (14.0-18.0) g/dL Hct 31.7 L (42.0-52.0) % MCV 88.5 (80-90) FL MCH 29.1 (27-31) PG MCHC 32.8 L (33-37) g/dL RDW Std Deviation 41.6 (39-50) fL RDW Coeff of Robert 13.4 (11.5-14.5) % Plt Count 181 (140-350) 10*3/uL MPV 7.7 (7.4-12.2) FL Neutrophils % (Manual) 71 (50-80) % Band Neutrophils % 24 H (0-10) % Lymphocytes % (Manual) 3 L (10-50) % Monocytes % (Manual) 2 (0-12) % Eosinophils % (Manual) 0 (0-8) % Basophils % (Manual) 0 (0-1) % Metamyelocytes % Not Reportable Myelocytes % Not Reportable Promyelocytes % Not Reportable Blast Cells Not Reportable WBC Morphology Comment Normal morphology (NORM) Plt Morphology Comment Normal morphology (NORM) RBC Morph Comment Normal morphology (NORM) VBG pH 7.42 (7.32-7.42) VBG pCO2 37 L (45-55) mmHg VBG HCO3 24 (22-26) mmol/L VBG Base Excess 0 (-2-2) MMOL/L Sodium 135 (135-145) meq/L Potassium 4.0 (3.8-5.2) meq/L Chloride 100 (98-112) meq/L Carbon Dioxide 25 (23-33) meq/L Anion Gap 10 (5-20) BUN 20 (7-22) mg/dL Creatinine 0.8 (0.70-1.50) mg/dL Estimated GFR (>60 ml/min/1.73m(2)) BUN/Creatinine Ratio 25.00 H (6-20) Glucose 110 (78-110) mg/dL Calculated Osmolality 283.0 (267-292) mOsm/kg Lactic Acid 1.5 (0.70-2.10) MMOL/L Calcium 8.4 L (8.7-10.7) mg/dL Total Bilirubin 0.6 (0.3-1.2) mg/dL AST 23 (21-57) IU/L ALT 21 (21-72) IU/L Alkaline Phosphatase 53 (38-126) IU/L Total Protein 6.1 (6.1-8.0) g/dL Albumin 3.3 L (3.5-4.8) g/dL Globulin 2.8 (2.50-4.10) g/dL Albumin/Globulin Ratio 1.10 L (1.3-2.0) mg/g - EKG Data -: EKG Interpreted by Me Rate: Normal EKG Shows Normal: Sinus Rhythm - EKG Data EKG Interpretation: Other (abnormal tracing becuse of patient tremor) - Imaging Status: Image Reviewed by Me (CT head negative for acute bleed. CXR shows no pneumonia) AFib Stroke Risk Screening - AFib Stroke Risk (CHADS-VASc) Atrial Fibrillation Ischemic Stroke Risk Factors: Age 65 to 74 years CHADS-VASc Score (A-Fib Stroke Risk Score): 1 CHADS-VASc Risk: Intermediate Risk Assessment and Plan - Patient Problems (1) Sepsis due to urinary tract infection Status: Resolved Priority: High (2) Altered mental status Status: Chronic Priority: Low Qualifiers: Altered mental status type: delirium Qualified Description: Delirium Qualifier Code(s): (R41.0) Disorientation, unspecified (3) Smith catheter problem Status: Chronic Priority: Low Qualifiers: Encounter type: sequela Qualified Description: Problem with Smith catheter, sequela Qualifier Code(s): (T83.9XXS) Unspecified complication of genitourinary prosthetic device, implant and graft, sequela - Assessment / Plan Additional Assessment/Plan Details: admit to ICU vasopressors as patient hypotensive after early goal directed fluid therapy NS boluses (fluid resusitation) antibiotics to cover urine central line--completed separate of this assessment, H and P with no overlap. get post procedureal CXR--I looked at this and the line was in good position without complications IV fluids hold any blood pressure medications check labs in AM maintain MAP 65 or greater. total critical care time, no overlap, 90 minutes. - Time Time Spent With Patient: 15-25 Minutes
[2017-03-25] MEDS ORDERED: Acetaminophen 1000mg Inj 100 ML IV ONE (20:58)
[2017-03-25] MEDS: Famotidine Inj 20 MG in Normal Saline Flush 10 ML IVP SCH (21:02)
[2017-03-26] MEDS: Sodium Chloride 0.9% 1,000 ML PRIMARY IV SCH ×2 (02:00→11:41)
--- NOTE | 2017-03-26 03:10 | PDOC ---
Altered Mental Status HPI - General Chief Complaint: General Medical Stated Complaint: FEVER 102.1, SLURRED SPEECH, DISORIENTATION Date Seen by Provider: 03/25/17 Time Seen by Provider: 12:45 Source: POSITIVE: Patient, Spouse, [facility] records Exam Limitations: POSITIVE: No limitations Nurse's Notes Reviewed & Considered: Yes EMS Report Reviewed & Considered: Verbal - History of Present Illness Initial Comments: The patient is a 72-year-old male. He is a resident of the [facility]. He is brought to the emergency room by ambulance[facility] the patient was febrile and that he was not as responsive as normal. The patient's , who is with the patient now, states that yesterday afternoon she was talking with the patient and the patient appeared alert and had normal mentation. The patient's states that she took the patient to [place] yesterday, where he he was scheduled to undergo hip surgery tomorrow. Review of old records shows that the patient has a history of coronary artery disease, congestive heart failure, COPD, Parkinson's disease , chronic right hip and lumbar pain, chronic urinary tract infections, polycystic kidney disease and depression. Patient has an indwelling Smith catheter due to prostatic hypertrophy. The patient's states that the patient pulled the catheter out yesterday and it was reinserted and the patient has had some bloody urine since. The is not aware that the patient has had any recent falls. No coughs. Body Location Affected: REPORTS: Other (Decreased mentation; patient responds to some direct questions, but not to others. Febrile.) Timing: REPORTS: Gradual, Getting Worse Duration: 4-6 hours Severity: Moderate Quality: REPORTS: Other (The patient is not in any apparent pain) Character of AMS: REPORTS: Confused (Confused to time, place, situation. He does recognize his .), Decreased Responsiveness (Patient responds slowly, if at all, to simple questions. He is follow simple commands, such as weakly squeezing the examiner's hands.) Context: REPORTS: Longterm Resident, Found Unrespons by Staff FSBS [employer] SUPER[employer] (Result in comment): No New Medications (if yes, list): No Patient Normals: REPORTS: Alert, Oriented x3, Walks Only W/ Assist (Due to severe degenerative disease of right hip) Associated Symptoms: REPORTS: Fever Similar Symptoms Previously: No Recent Care Received: REPORTS: Recently Seen, Treated by MD (As above) Any Prior Injuries Related to Current Complaint?: No - Patient Home Medications Home Medications: Home Medications Calcium Carbonate/Vitamin D3 [Calcium 600 With Vit D Tab] 1 tab PO TID 09/11/11 Nitroglycerin SL Tab [Nitrostat SL Tab] 0.4 mg SL Q5M PRN MDD 3 09/11/11 Tiotropium [place] [Spiriva] 1 inh INH DAILY@1900 09/11/11 Metoprolol Tartrate Tab [Lopressor Tab] 1 tab PO QD 11/01/13 Isosorbide Mononitrate [Isosorbide Mononitrate ER] 30 mg PO DAILY #90 tab Gabapentin 1 tab PO TID tab 05/09/16 Trihexyphenidyl HCl 2 tab PO BEDTIME 12/31/16 Trihexyphenidyl HCl 3 tab PO QAM 12/31/16 Finasteride 1 tab PO QHS 01/02/17 Venlafaxine HCl ER [Effexor Xr] 225 mg PO DAILY 01/06/17 Bisacodyl EC Tab [Dulcolax Tab] 2 tab PO BID PRN tab 01/13/17 Budesonide/Formoterol Fumarate [Symbicort] 2 puff INH BID inh 01/13/17 Calcium Carbonate [Tums] 1 - 2 tab PO Q6H PRN tab 01/13/17 Ferrous Gluconate [Fergon] 1 tab PO BID tab 01/13/17 Guaifenesin [Mucinex] 1 tab PO QD tab 01/13/17 Mag Hydrox/Al Hydrox/Simeth [Leilani-Lanta Liquid] 20 ml PO Q6H PRN ml 01/13/17 Simvastatin 1 tab PO QHS tab 01/13/17 Terazosin HCl 1 cap PO QHS cap 01/13/17 Hydrocodone/Acetaminophen [[place] 10-325 Tablet] 1 tab PO Q4H tab 01/21/17 Citric AC/Gluconolact/Mag Carb [Renacidin Irrigation Solution] 30 ml IR QD 03/04 Aspirin 81 mg PO DAILY 03/25/17 - Patient Allergies Allergies/Adverse Reactions: Allergies Allergy/AdvReac Type Severity Reaction Status Date / Time No Known Drug Allergies Allergy NOT Verified 03/25/17 19:04 APPLICABLE PAIN CONTRACT AdvReac Unknown NOT Uncoded 03/25/17 19:04 APPLICABLE Past Medical History - heen HEENT History: Other (please comment) Additional HEENT History: WEARS GLASSES Cardiovascular History: CHF, CAD, Hyperlipidemia Additional Cardiovasular History: 3 stents 2005 Respiratory History: COPD, Pneumonia, Home Oxygen Use Additional Respiratory History: O2 @ 3.5l/nc Gastrointestinal History: GERD, Other (please comment) Additional Gastrointestinal History: chronic constipation Genitourinary History: Kidney Stones, Polycystic Kidney Disease, Other (please comment) Additional Genitourinary History: BPH Endocrine History: Denies History Musculoskeletal History: Other (please comment) Prosthesis or Implant: Yes (CARDIAC STENTS) Additional Musculoskeletal History: chronic pain: lumbar pain secondary to disc problems, hip that is deteriorating, 5 HERNIATED DISCS Neurological History: TIA, Parkinson's Blood Disorders: Denies History Psychiatric History: Depression, PTSD History of Sexually Transmitted Diseases: No Male Reproductive History: Denies History Cancer History: Denies History In Past Year Been Physically Harmed or Verbally Threatened: No History of MDRO: Unknown History of Other Communicable Diseases: No Tobacco Use: Never Smoker Alcohol Use: None Substance Use Type: None, Opiate Pain Medication Previous Surgical History: Yes Type / Date of Surgery: APPENDECTOMY/ CORONARY STENT X 3 IN 2006 Anesthesia Reactions: No Malignant Hyperthermia: No Family History of Malignant Hyperthermia: No Significant Family History: No pertinent family hx Past Medical History Reviewed: Reviewed - No Changes ROS - Limitations ROS Limitations: Clinical Condition (Patient obtunded), Other (please comment) ( Review of systems and past medical history obtained primarily from the patient' s , as the patient is confused and obtunded) Constitution: REPORTS: Chills, Fever, Weakness Cardiovascular: REPORTS: Denies Cardiac Symptoms Respiratory: REPORTS: Denies Resp Symptoms Neurological: REPORTS: Confusion Gastrointestinal: REPORTS: Denies GI Symptoms Endocrine: REPORTS: Denies Symptoms Musculoskeletal: REPORTS: Denies MS Symptoms Genitourinary: REPORTS: Other (Patient is noted to have a Smith catheter in place, draining some dark bloody urine) Eyes: REPORTS: Denies Symptoms ENT: REPORTS: Denies Symptoms Skin: REPORTS: Denies Skin Symptoms Lympathic: REPORTS: Denies Lympathic Symptoms Immunologic: POSITIVE: Denies Symptoms Psychiatric: POSITIVE: Confusion Altered Mental Physical Exam - General Appearance General Appearance: POSITIVE: Lethargic, Obtunded - HEENT HEENT: POSITIVE: Head Inspection Nml, Eyes Inspection Nml, Ears Inspection Nml, Nose Inspection Nml, Oral/Dental Inspect. Nml, Pharynx Inspect. Nml, PERRL, EOMI , Dry Mucous Membranes - Pupil Size Pupil Size: 3 mm: Bilateral - Neuro/Psych Neurological: POSITIVE: Confusion, Other (Patient response to noxious stimuli and will weakly squeeze both hands on request. Will open eyes on request) Cranial Nerves: POSITIVE: Normal As Tested, No Evidence of Acute CVA Cerebellar: POSITIVE: Normal As Tested Peripheral Exam: POSITIVE: No Motor Deficits, No Sensory Deficits, Reflexes Normal - Neck Neck: POSITIVE: Supple, Non Tender - Respiratory Respiratory: POSITIVE: No Respiratory Distress, Breath Sounds Normal - Cardiovascular CVS: POSITIVE: Regular Rate and Rhythm, Heart Sounds Normal Peripheral Pulses: Radial (R): 2+, Radial (L): 2+ - Abdomen Abdomen: Soft: (All Quadrants), Normal Bowel Sounds: (All Quadrants), Denies Tenderness: (All Quadrants), No Splenomegaly: (All Quadrants), No Hepatomegaly: (All Quadrants), No Guarding: (All Quadrants), No Rebound: (All Quadrants), No Palpable Pulse: (All Quadrants), No Palpabale Mass: (All Quadrants), No Distention: (All Quadrants), No Rigidity: (All Quadrants) - Skin Skin: POSITIVE: Normal for Race, No Rash, Warm, Dry - Extremities Extremity: Non-Tender: (All Extremities), Normal ROM: (All Extremities), Normal Inspection: (All Extremities) Procedure - Additional Procedures Additional Procedures: Smith Catheter (Patient's Smith catheter removed and replaced. Urine grossly bloody. Urine output diminished.) Altered Mental Status - Results Reviewed By Me Xrays/CTs/US Reviewed: Yes (CT scan head normal for age; chest x-ray shows no definite infiltrates) Discussed with Radiologist: Yes Lab Results Reviewed: Yes Lab Results:: Laboratory Results 03/25/17 03/25/17 03/25/17 Range/Units 12:32 13:40 13:50 WBC 13.06 H (4.8-10.8) 10^3/uL RBC 4.18 L (4.70-6.10) 10^6/uL Hgb 12.0 L (14.0-18.0) g/dL Hct 36.6 L (42.0-52.0) % MCV 87.6 (80-90) FL MCH 28.7 (27-31) PG MCHC 32.8 L (33-37) g/dL RDW Std Deviation 41.4 (39-50) fL RDW Coeff of Robert 13.2 (11.5-14.5) % Plt Count 200 (140-350) 10*3/uL MPV 8.2 (7.4-12.2) FL Immature Gran % (Auto) 0.5 (0-5) % Neut % (Auto) 89.3 H (50-80) % Lymph % (Auto) 1.6 L (10-50) % [place] % (Auto) 8.5 (5-15) % Eos % (Auto) 0 (0-8) % Baso % (Auto) 0.1 (0-1) % Immature Gran # (Auto) 0.06 10*3/UL Neut # (Auto) 11.67 10*3/UL Lymph # (Auto) 0.21 10*3/uL [place] # (Auto) 1.11 H (0.3-0.8) 10*3/UL Eos # (Auto) 0 10*3/UL Baso # (Auto) 0.01 10*3/UL WBC Morphology Comment Normal morphology (NORM) Plt Morphology Comment Normal morphology (NORM) RBC Morph Comment Normal morphology (NORM) PT 11.7 H (9.7-11.4) secs INR 1.10 (0.00-5.90) N/A ABG pH 7.45 (7.35-7.45) ABG pCO2 33 L (34-38) MMHG ABG pO2 102 H (65-75) MMHG ABG HCO3 23 (22-26) ABG Total CO2 24 (23-27) MMOL/L ABG O2 Saturation 98 (90-100) % ABG Base Excess -1 (-2-2) MMOL/L Adria Test Y FiO2 4lpm nc Sodium 134 L (135-145) meq/L Potassium 3.5 L (3.8-5.2) meq/L Chloride 95 L (98-112) meq/L Carbon Dioxide 27 (23-33) meq/L Anion Gap 12 (5-20) BUN 22 (7-22) mg/dL Creatinine 0.9 (0.70-1.50) mg/dL Estimated GFR (>60 ml/min/1.73m(2)) BUN/Creatinine Ratio 24.44 H (6-20) Glucose 111 H (78-110) mg/dL Calculated Osmolality 281.0 (267-292) mOsm/kg Lactic Acid 2.9 H (0.70-2.10) MMOL/L Calcium 9.0 (8.7-10.7) mg/dL Magnesium 1.9 (1.6-2.4) mg/dL Total Bilirubin 0.7 (0.3-1.2) mg/dL AST 26 (21-57) IU/L ALT 17 L (21-72) IU/L Alkaline Phosphatase 62 (38-126) IU/L Total Creatine Kinase 280 H (55-170) IU/L CK-MB (CK-2) 2.60 (0.00-5.00) NG/ML Troponin I 0.038 (< 0.040) ng/mL C-Reactive Protein 17.4 H (0.0-0.9) mg/dL Total Protein 7.1 (6.1-8.0) g/dL Albumin 3.9 (3.5-4.8) g/dL Globulin 3.2 (2.50-4.10) g/dL Albumin/Globulin Ratio 1.20 L (1.3-2.0) mg/g Ur Collection Type Cath specimen Urine Color Red Urine Clarity Turbid (CLEAR) Urine pH >=9.0 (5.0-8.5) Ur Specific [place] 1.010 (1.005-1.030) Urine Protein >300 (NEG) mg/dl Urine Glucose (UA) Negative (NEG) mg/dL Urine Ketones Negative (NEG) Urine Occult Blood Large H (NEG) Urine Nitrate Negative (NEG) Urine Bilirubin Negative (NEG) Urine Urobilinogen 0.2 (0.2) EU/dL Ur Leukocyte Esterase Moderate (NEG) Urine RBC >100 (NONE) /hpf Urine WBC 10-15 (NONE) Ur Squamous Epith Cells None (NONE) Ur Renal Epithelial Cell None (NONE) Urine Crystals Many Urine Bacteria Many (NONE) Urine Casts None (NONE) Urine Mucus None (NONE) Urine Trichomonas None (NONE) Urine Yeast None (NONE) Ur Culture Indicated? Culture set - Patient's Progress Pain Medication Addressed: POSITIVE: Not Applicable School/Work Release Addressed: POSITIVE: Not Applicable Re-Examine Time:: 13:40 Re-Examine Comment: Patient hypotensive with a blood pressure of 94/60, which went down to 85/50. Patient hydrated with approximately 1500 mL in the emergency room. Lactic acid and CRP elevated and urinalysis shows red blood cells in excess of 100 and white blood cells 10-15 per high power field. Smith catheter replaced; bladder scan shows minimal residual urine in the bladder. 2 blood cultures drawn and then patient given 1 g of Invanz. Re-Examine Time: 15:00 Re-Examine Comment: Blood pressure running around 90/50. Heart rate in the 120s. Initial temperature was 103F. Patient is septic. 1 g of Invanz already started. Patient started on norepinephrine , 1 mcg/monica to be increased up into a systolic blood pressure of 100. Total of approximately 2 L of normal saline given in the emergency room. Status: POSITIVE: Unchanged, Re-Examined Antibiotics Given: Yes (Invanz, 1 g IV) - Consult Consult (If Yes, Name of Consulting MD & Time Called): Yes (Dr.. Daniel, hospitalist, [id number]) Consulting MD will see pt:: POSITIVE: [facility] [place] Counseled: POSITIVE: Patient, RE: Lab Results, RE: Radiology Results, RE: DX, RE : Need for F/U Patient Care Time - Estimated PCT Patient Care Time (In Minutes): 75 Vital Signs - VS Reviewed Vital Signs Reviewed: Yes Critical Care Note - Critical Care Note Total Time (mins): 75 Critical Care: Recurrent Physical Assessment Required, Shock, Life Threatening Scenario, Multiple Organ Systems Threatened / At Risk, Interpretation of Labs - Management Adjusted Based on Results, Interpretation Imaging Studies - Management Adjusted Based on Results History Source: Family, RN notes reviewed, [facility] records Discussion with Family: Discussion with Marketing Team Lead: Dr. Daniel, hospitalist Comments: [facility] records reviewed and discussed resuscitation status with . states patient does not want cardiopulmonary resuscitation and is indicated in his [facility] that he wishes to be treated with IV medications and hydration. Discharge Clinical Impression: Sepsis associated hypotension Discharge Disposition: Admit to Inpatient Condition: Fair Date Decision to Admit to Inpatient: 03/25/17 Time Decision to Admit to Inpatient: 13:30
[2017-03-26] MEDS: Cefotaxime Inj 2 GM in Sodium Chloride 0.9% 100 ML IV SCH (04:02)
[2017-03-26 07:09] LABS: BUN/CREATININE RATIO 22.85 (6-20); MAGNESIUM 1.9 mg/dL (1.6-2.4)
[2017-03-26 07:16] LABS: RED BLOOD COUNT 3.48 10^6/uL (4.70-6.10)
[2017-03-26 07:17] LABS: BASOPHILS % (AUTO) 0.1 % (0-1); EOSINOPHILS # (AUTO) 0.01 10*3/UL; EOSINOPHILS % (AUTO) 0.1 % (0-8); HEMATOCRIT 30.8 % (42.0-52.0); HEMOGLOBIN 9.7 g/dL (14.0-18.0); LYMPHOCYTES # (AUTO) 0.45 10*3/uL; MEAN CORPUSCULAR HEMOGLOBIN 27.9 PG (27-31); MEAN CORPUSCULAR HGB CONC 31.5 g/dL (33-37); MEAN CORPUSCULAR VOLUME 88.5 FL (80-90); MEAN PLATELET VOLUME 8.2 FL (7.4-12.2); MONOCYTES # (AUTO) 0.95 10*3/UL (0.3-0.8); MONOCYTES % (AUTO) 9.7 % (5-15); NEUTROPHILS # (AUTO) 8.36 10*3/UL; NEUTROPHILS % (AUTO) 85.2 % (50-80)
[2017-03-26 07:18] LABS: BASOPHILS # (AUTO) 0.01 10*3/UL; PLATELET MORPHOLOGY COMMENT NORMAL MORPHOLOGY (NORM); RBC MORPHOLOGY COMMENT NORMAL MORPHOLOGY (NORM); WBC MORPHOLOGY COMMENT NORMAL MORPHOLOGY (NORM)
[2017-03-26 08:30] LABS: CLARITY,URINE SLIGHTLY CLOUDY (CLEAR); COLOR,URINE RED; GLUCOSE, URINE (UA) NEGATIVE (NEG); PROTEIN,URINE 100 mg/dl (NEG); URINE SAMPLE TYPE CATH SPECIMEN
[2017-03-26 08:31] LABS: BILIRUBIN,URINE NEGATIVE (NEG); NITRATE,URINE NEGATIVE (NEG); OCCULT BLOOD,URINE LARGE (NEG); UROBILINOGEN,URINE 0.2 EU/dL (0.2)
[2017-03-26 08:32] LABS: RBC,URINE 25-40 /hpf
--- NOTE | 2017-03-26 09:49 | PDOC(PROG) ---
Date and Time of Service: 26 March [id number] Interval History: Subjective: Patient's cognition is significantly improved, he is much less agitated, not pulling at his Smith catheter now. Objective: Patient fevers have improved, currently afebrile, improved cognition and ability to assist with movement in the bed. HEENT: Atraumatic, normocephalic, EOMs are intact, PERRL. No otorrhea or rhinorrhea are noted. Mucous membranes are moist. Chest: Clear to auscultation bilaterally with symmetrical nonlabored respiratory effort, heart is regular rate and rhythm with no clicks murmurs or rubs appreciated. Abdomen: Soft nontender nondistended positive bowel sounds. CBC shows improvement of white count to 9. Potassium is 3.4. Plan: We'll change Claforan to Rocephin due to Claforan shortage. We will plan for 1 more day in the ICU to transition from [place] to Rocephin and allow for further improvement before transfer to floor bed. As long as his vitals are stable for 24 hours with improved blood pressure I expect transfer to floor tomorrow morning. Objective : Data - Labs CBC and BMP: 03/26/17 06:39 03/26/17 06:39 Labs - Last 24 Hours: Laboratory Results 03/25/17 03/25/17 03/25/17 Range/Units 17:52 17:55 18:09 WBC 11.82 H (4.8-10.8) 10^3/uL RBC 3.58 L (4.70-6.10) 10^6/uL Hgb 10.4 L (14.0-18.0) g/dL Hct 31.7 L (42.0-52.0) % MCV 88.5 (80-90) FL MCH 29.1 (27-31) PG MCHC 32.8 L (33-37) g/dL RDW Std Deviation 41.6 (39-50) fL RDW Coeff of Robert 13.4 (11.5-14.5) % Plt Count 181 (140-350) 10*3/uL MPV 7.7 (7.4-12.2) FL Immature Gran % (Auto) (0-5) % Neut % (Auto) (50-80) % Lymph % (Auto) (10-50) % Lares % (Auto) (5-15) % Eos % (Auto) (0-8) % Baso % (Auto) (0-1) % Immature Gran # (Auto) 10*3/UL Neut # (Auto) 10*3/UL Lymph # (Auto) 10*3/uL Lares # (Auto) (0.3-0.8) 10*3/UL Eos # (Auto) 10*3/UL Baso # (Auto) 10*3/UL Neutrophils % (Manual) 71 (50-80) % Band Neutrophils % 24 H (0-10) % Lymphocytes % (Manual) 3 L (10-50) % Monocytes % (Manual) 2 (0-12) % Eosinophils % (Manual) 0 (0-8) % Basophils % (Manual) 0 (0-1) % Metamyelocytes % Not Reportable Myelocytes % Not Reportable Promyelocytes % Not Reportable Blast Cells Not Reportable WBC Morphology Comment Normal morphology (NORM) Plt Morphology Comment Normal morphology (NORM) RBC Morph Comment Normal morphology (NORM) VBG pH 7.42 (7.32-7.42) VBG pCO2 37 L (45-55) mmHg VBG HCO3 24 (22-26) mmol/L VBG Base Excess 0 (-2-2) MMOL/L Sodium 135 (135-145) meq/L Potassium 4.0 (3.8-5.2) meq/L Chloride 100 (98-112) meq/L Carbon Dioxide 25 (23-33) meq/L Anion Gap 10 (5-20) BUN 20 (7-22) mg/dL Creatinine 0.8 (0.70-1.50) mg/dL Estimated GFR (>60 ml/min/1.73m(2)) BUN/Creatinine Ratio 25.00 H (6-20) Glucose 110 (78-110) mg/dL Calculated Osmolality 283.0 (267-292) mOsm/kg Lactic Acid 1.5 (0.70-2.10) MMOL/L Calcium 8.4 L (8.7-10.7) mg/dL Magnesium (1.6-2.4) mg/dL Total Bilirubin 0.6 (0.3-1.2) mg/dL AST 23 (21-57) IU/L ALT 21 (21-72) IU/L Alkaline Phosphatase 53 (38-126) IU/L Total Protein 6.1 (6.1-8.0) g/dL Albumin 3.3 L (3.5-4.8) g/dL Globulin 2.8 (2.50-4.10) g/dL Albumin/Globulin Ratio 1.10 L (1.3-2.0) mg/g Ur Collection Type Urine Color Urine Clarity (CLEAR) Urine pH (5.0-8.5) Ur Specific Elizabeth (1.005-1.030) Urine Protein (NEG) mg/dl Urine Glucose (UA) (NEG) mg/dL Urine Ketones (NEG) Urine Occult Blood (NEG) Urine Nitrate (NEG) Urine Bilirubin (NEG) Urine Urobilinogen (0.2) EU/dL Ur Leukocyte Esterase (NEG) Urine RBC (NONE) /hpf Urine WBC (NONE) Ur Squamous Epith Cells (NONE) Ur Renal Epithelial Cell (NONE) Urine Crystals Urine Bacteria (NONE) Urine Casts (NONE) Urine Mucus (NONE) Urine Trichomonas (NONE) Urine Yeast (NONE) Ur Culture Indicated? 03/26/17 03/26/17 Range/Units 06:39 08:00 WBC 9.81 (4.8-10.8) 10^3/uL RBC 3.48 L (4.70-6.10) 10^6/uL Hgb 9.7 L (14.0-18.0) g/dL Hct 30.8 L (42.0-52.0) % MCV 88.5 (80-90) FL MCH 27.9 (27-31) PG MCHC 31.5 L (33-37) g/dL RDW Std Deviation 41.9 (39-50) fL RDW Coeff of Robert 13.3 (11.5-14.5) % Plt Count 144 (140-350) 10*3/uL MPV 8.2 (7.4-12.2) FL Immature Gran % (Auto) 0.3 (0-5) % Neut % (Auto) 85.2 H (50-80) % Lymph % (Auto) 4.6 L (10-50) % Lares % (Auto) 9.7 (5-15) % Eos % (Auto) 0.1 (0-8) % Baso % (Auto) 0.1 (0-1) % Immature Gran # (Auto) 0.03 10*3/UL Neut # (Auto) 8.36 10*3/UL Lymph # (Auto) 0.45 10*3/uL Lares # (Auto) 0.95 H (0.3-0.8) 10*3/UL Eos # (Auto) 0.01 10*3/UL Baso # (Auto) 0.01 10*3/UL Neutrophils % (Manual) (50-80) % Band Neutrophils % (0-10) % Lymphocytes % (Manual) (10-50) % Monocytes % (Manual) (0-12) % Eosinophils % (Manual) (0-8) % Basophils % (Manual) (0-1) % Metamyelocytes % Myelocytes % Promyelocytes % Blast Cells WBC Morphology Comment Normal morphology (NORM) Plt Morphology Comment Normal morphology (NORM) RBC Morph Comment Normal morphology (NORM) VBG pH (7.32-7.42) VBG pCO2 (45-55) mmHg VBG HCO3 (22-26) mmol/L VBG Base Excess (-2-2) MMOL/L Sodium 135 (135-145) meq/L Potassium 3.4 L (3.8-5.2) meq/L Chloride 106 (98-112) meq/L Carbon Dioxide 23 (23-33) meq/L Anion Gap 6 (5-20) BUN 16 (7-22) mg/dL Creatinine 0.7 (0.70-1.50) mg/dL Estimated GFR (>60 ml/min/1.73m(2)) BUN/Creatinine Ratio 22.85 H (6-20) Glucose 109 (78-110) mg/dL Calculated Osmolality 281.0 (267-292) mOsm/kg Lactic Acid 1.0 (0.70-2.10) MMOL/L Calcium 8.0 L (8.7-10.7) mg/dL Magnesium 1.9 (1.6-2.4) mg/dL Total Bilirubin 0.5 (0.3-1.2) mg/dL AST 24 (21-57) IU/L ALT 26 (21-72) IU/L Alkaline Phosphatase 51 (38-126) IU/L Total Protein 5.8 L (6.1-8.0) g/dL Albumin 3.0 L (3.5-4.8) g/dL Globulin 2.8 (2.50-4.10) g/dL Albumin/Globulin Ratio 1.00 L (1.3-2.0) mg/g Ur Collection Type Cath specimen Urine Color Red Urine Clarity Slightly cloudy (CLEAR) Urine pH 7.0 (5.0-8.5) Ur Specific Elizabeth 1.015 (1.005-1.030) Urine Protein 100 (NEG) mg/dl Urine Glucose (UA) Negative (NEG) mg/dL Urine Ketones Negative (NEG) Urine Occult Blood Large H (NEG) Urine Nitrate Negative (NEG) Urine Bilirubin Negative (NEG) Urine Urobilinogen 0.2 (0.2) EU/dL Ur Leukocyte Esterase Large (NEG) Urine RBC 25-40 (NONE) /hpf Urine WBC 10-15 (NONE) Ur Squamous Epith Cells None (NONE) Ur Renal Epithelial Cell None (NONE) Urine Crystals None Urine Bacteria None (NONE) Urine Casts None (NONE) Urine Mucus Rare (NONE) Urine Trichomonas None (NONE) Urine Yeast None (NONE) Ur Culture Indicated? Culture set Assessment and Plan - Patient Problems (1) Altered mental status Current Visit: No Status: Chronic Priority: Low Qualifiers: Altered mental status type: delirium Qualified Description: Delirium Qualifier Code(s): (R41.0) Disorientation, unspecified (2) Smith catheter problem Current Visit: No Status: Chronic Priority: Low Qualifiers: Encounter type: sequela Qualified Description: Problem with Smith catheter, sequela Qualifier Code(s): (T83.9XXS) Unspecified complication of genitourinary prosthetic device, implant and graft, sequela (3) Sepsis due to urinary tract infection Current Visit: Yes Status: Acute Priority: High
[2017-03-26] MEDS ORDERED: cefTRIAXone Inj 2 GM in Sodium Chloride 0.9% 100 ML IV SCH (10:00)
[2017-03-26] MEDS: Famotidine Inj 20 MG in Normal Saline Flush 10 ML IVP SCH ×2 (10:10→20:21)
[2017-03-26] MEDS: ASPIRIN 325 MG TABLET PO SCH (10:10)
[2017-03-26] MEDS: ENOXAPARIN SODIUM 40 MG/0.4 ML SYRINGE SUBCUT SCH (10:13)
[2017-03-26] MEDS ORDERED: VENLAFAXINE XR 75 MG CAP PO ONE (11:22)
--- NOTE | 2017-03-26 11:25 | DI ---
XR CXR 1VW,03/25/2017 4:24 PM: Clinical History: Check central line placement. Previous Exam: March 25, 2017 Findings: A single frontal radiograph of the chest is obtained, and demonstrates a right central venous cathete r with the tip in good position. There is no evidence of pneumothorax nor pleural effusion. There is mild cardiomegaly. Impression: New right central venous catheter in good position.
[2017-03-26] MEDS ORDERED: NITROGLYCERIN 0.4 MG SL TAB (BOTTLE OF 3) SL PRN (11:55)
[2017-03-26] MEDS ORDERED: BISACODYL 5 MG TABLET PO PRN (11:55)
[2017-03-26] MEDS ORDERED: MAG HYDROX/AL HYDROX/SIMETH 30 ML SUSP PO PRN (11:55)
[2017-03-26] MEDS: HYDROcodone-APAP 10 MG-325 MG TABLET PO SCH ×3 (13:04→20:22)
[2017-03-26] MEDS: GABAPENTIN 300 MG CAPSULE PO SCH ×2 (14:58→20:19)
[2017-03-26] MEDS: Non-Formulary Drug (Budesonide/Formoterol Fumarate [Symbicort] 2 PUFF) INH SCH (18:51)
[2017-03-26] MEDS ORDERED: TIOTROPIUM BROMIDE 18 MCG CAPSULE INH SCH (19:00)
[2017-03-26] MEDS: Simvastatin Tab 40 MG TAB PO SCH (20:19)
[2017-03-26] MEDS: FERROUS GLUCONATE 324 MG TABLET PO SCH (20:19)
[2017-03-26] MEDS: FINASTERIDE 5 MG TABLET PO SCH (20:20)
[2017-03-26] MEDS: Terazosin Cap 5 MG CAP PO SCH (20:20)
[2017-03-26] MEDS: cefTRIAXone Inj 2 GM in Sodium Chloride 0.9% 100 ML IV SCH (20:20)
[2017-03-26] MEDS: TRIHEXYPHENIDYL HCL 2 MG PO SCH (20:34)
[2017-03-27] MEDS: HYDROcodone-APAP 10 MG-325 MG TABLET PO SCH ×6 (01:00→20:27)
[2017-03-27] MEDS: Sodium Chloride 0.9% 1,000 ML PRIMARY IV SCH (05:05)
[2017-03-27] MEDS: Non-Formulary Drug (Budesonide/Formoterol Fumarate [Symbicort] 2 PUFF) INH SCH ×2 (06:32→18:47)
[2017-03-27] MEDS ORDERED: TIOTROPIUM BROMIDE 18 MCG CAPSULE INH SCH (07:00)
[2017-03-27] MEDS: ENOXAPARIN SODIUM 40 MG/0.4 ML SYRINGE SUBCUT SCH (08:27)
[2017-03-27] MEDS: Famotidine Inj 20 MG in Normal Saline Flush 10 ML IVP SCH ×2 (08:27→20:29)
[2017-03-27] MEDS: ASPIRIN 325 MG TABLET PO SCH (08:28)
[2017-03-27] MEDS: GABAPENTIN 300 MG CAPSULE PO SCH ×3 (08:28→20:28)
[2017-03-27] MEDS: FERROUS GLUCONATE 324 MG TABLET PO SCH ×2 (08:29→20:28)
[2017-03-27] MEDS ORDERED: TRIHEXYPHENIDYL HCL 2 MG PO SCH (09:00)
[2017-03-27] MEDS ORDERED: ISOSORBIDE MONONITRATE 30 MG SR 24H TABLET PO SCH (09:00)
[2017-03-27] MEDS ORDERED: Calcium/Vit D 600mg/400u Tab 1 TAB TABLET PO SCH (09:00)
[2017-03-27] MEDS ORDERED: GUAIFENESIN 600 MG TABLET PO SCH (09:00)
[2017-03-27] MEDS ORDERED: VENLAFAXINE XR 75 MG CAP PO SCH (09:00)
[2017-03-27 17:25] VITALS: TEMP 97
[2017-03-27 20:03] VITALS: RESP 16
--- NOTE | 2017-03-27 20:07 | DI ---
CT ABD W/CN AND PELVIS W/CN,03/27/2017 2:01 PM: Clinical History: Abdominal distention. Previous Exam: 01/04/17 Findings: Multiple helically acquired CT images are obtained through the abdomen and pelvis following the intra venous menstruation of 95 cc of ICU 300. There is mild subsegmental atelectasis in the lung bases. Coronary artery calcifications are noted. The liver, spleen, adrenals, kidneys, gallbladder and pancreas are unremarkable. There is a large amount of dried stool within the rectum. The urinary bladder is unremarkable. There is no free air nor free fluid. Multiple renal parenchymal stones are seen. There is mild right-sided hydronephrosis which appears to be due to 3 separate ureteral stones in ser ies within the right ureter. The most proximal of these measures 1 cm in long axis within the ureter just distal to the common iliac. There is also a 9 mm stone within the distal ureter approximately 5 cm from the ureterovesicular junction and there is a 2 mm density within the distal ureter approximat manasa 1 cm from the ureterovesicular junction. Peripheral vascular calcifications are seen. There is no mesenteric or retroperitoneal lymphadenopathy. Impression: 1. Multiple stones in series within the right ureter causing moderate right hydronephrosis. The large st of these measures 1 cm in long axis and is just distal to the level where the ureter crosses the r ight common iliac artery. 2. Bilateral renal parenchymal stones. 3. Large amount of dried stool throughout the colon.
[2017-03-27] MEDS: FINASTERIDE 5 MG TABLET PO SCH (20:28)
[2017-03-27] MEDS: TRIHEXYPHENIDYL HCL 2 MG PO SCH (20:28)
[2017-03-27] MEDS: Simvastatin Tab 40 MG TAB PO SCH (20:28)
[2017-03-27] MEDS: cefTRIAXone Inj 2 GM in Sodium Chloride 0.9% 100 ML IV SCH (20:28)
[2017-03-27] MEDS: Terazosin Cap 5 MG CAP PO SCH (20:29)
--- NOTE | 2017-03-27 20:32 | DCSUMMARY ---
Hospitalization Summary Admit Date: 03/25/17 Discharge Date: 03/27/17 Primary Diagnosis:: urinary tract infection with ureteral stone, hydronephro Hospital Course: This very pleasant 72-year-old male who [facility] having symptoms of weakness and an appearance that looked like a stroke. That was ruled out, but the patient was found to be hypotensive, febrile, and in septic shock. He was admitted to the ICU, and was treated for a urinary tract infection as the likely source of sepsis. The patient has known chronic Smith catheterization for at least the last couple of years, and no other source of infection was noted. Thus far blood cultures are negative, hypotension resolved, fevers have abated with antibiotic therapy, and the patient remains on Rocephin for urinary tract infection. I will note the patient was on Claforan, but there is a shortage of Claforan and so he was switched to Rocephin. Thus far on blood cultures again, negative. In terms of urinary cultures, the patient has one that's positive for perhaps 2 organisms but final ID of the offending bacteria has not been identified yet. It is still up culture in progress. The patient had reportedly pulled his catheter out the night prior to the admission. Today, the patient had abdominal distention. I did do a CT scan and the patient does have what appears to be marked gastric distention, but no evidence of perforation per the radiology reading. He does have what appears to be a right ureteral stone, my suspicion is at the ureteropelvic junction, at 2.5 mm in diameter. He has right hydronephrosis which is new from a CT scan of the abdomen done in 2011. Given these findings, I discussed with urology and it was recommended that the patient have a ureteral stent for decompression, particularly as the patient is no longer septic. It was recommended to consider proceeding with that sooner rather than later although not emergent the second. I spoke with the emergency room physician at [facility] and they agreed to accept the patient. The patient may likely have a ureteral stent placed tomorrow. Other issues with the patient include a chronic right lower lobe pulmonary nodule at 17 mm. This has not changed markedly in several years. The patient has had anemia and has chronic inflammation of the rectal wall since at least December 2016. This could represent proctitis, however I think he needs a colonoscopy to make sure that there is no evidence of cancer. I did do a rectal exam tonight and did not feel any overt mass, although it is a somewhat harder prostate and I would expect. He did see a surgeon here, but I think he should have a colonoscopy when stabilized. The patient's other medical issues remained stable through the hospital stay. He does have chronic pain syndrome that has been stable on his current doses of narcotics. He has debilitating right hip arthritis which is severe and probably has osteonecrosis. He was actually scheduled to have a hip replacement done here on the day of admission for this urine infection and subsequent sepsis. Also incidentally on imaging the patient has L1 vertebral body compression with retropulsion of the fracture fragments causing at least moderate severe stenosis of the spinal canal. Currently, the patient denies any nausea, vomiting, abdominal pain, chest pain, or shortness breath. 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 Assessment and Plan: 1. As per discharge assessments noted 2. Disposition: Patient will be discharged from the Medical Center 3. Condition on discharge, stable and improved. However, based on the nature of his condition, he could certainly deteriorate clinically. 4. Diet: regular diet, nothing by mouth postmidnight 5. Activities: resume normal activities, as per [facility] 6. Follow-Up: 1. See Dr. Logan in 7 days post discharge from [facility]. 2. 7. Medications at the Time of Discharge: Active Medications Generic Name Dose Route Start Last Admin Trade Name Freq PRN Reason Stop Dose Admin Acetaminophen/Hydrocodone Bitart 1 tab 03/26/17 12:00 03/27/17 20:27 [place] 10/325 Tab PO 1 tab Q4H BUNNY Administration Al Hydroxide/Mg Hydroxide 20 ml 03/26/17 11:55 Mylanta Liquid PO Q6H PRN Indigestion Aspirin 325 mg 03/26/17 09:00 03/27/17 08:28 Aspirin PO 325 mg DAILY BUNNY Administration Bisacodyl 10 mg 03/26/17 11:55 Dulcolax Tab PO BID PRN Constipation Calcium/Vitamin D 1 tab 03/27/17 09:00 03/27/17 08:29 Calcium 600mg + D 400u Tab PO 1 tab DAILY BUNNY Administration Enoxaparin Sodium 40 mg 03/26/17 09:00 03/27/17 08:27 Lovenox Inj SUBCUT 40 mg DAILY BUNNY Administration Ferrous Gluconate 324 mg 03/26/17 21:00 03/27/17 20:28 Fergon PO 324 mg BID BUNNY Administration Finasteride 5 mg 03/26/17 21:00 03/27/17 20:28 Proscar PO 5 mg BEDTIME BUNNY Administration Gabapentin 600 mg 03/26/17 15:00 03/27/17 20:28 Neurontin PO 600 mg TID BUNNY Administration Guaifenesin 600 mg 03/27/17 09:00 03/27/17 08:28 Mucinex Er Tab PO 600 mg DAILY BUNNY Administration Heparin Sodium (Porcine) 300 - 500 unit 03/25/17 16:24 03/27/17 10:27 Heparin Lock Inj (For Central Line) IVP 500 unit BID PRN Administration Flush Famotidine 20 mg/ Sodium 12 mls @ 5 mls/min 03/25/17 21:00 03/27/17 20:29 Chloride IVP 5 mls/min BID BUNNY Administration Norepinephrine Bitartrate 8 mg 258 mls @ 1.73 mls/hr 03/25/17 16:24 03/26/17 08 :56 / Dextrose IV 0 mcg/kg/min .TITRATE BUNNY Titration Protocol 0.01 MCG/KG/MIN Sodium Chloride 25 mls @ 200 mls/hr 03/25/17 16:24 03/25/17 21:02 Normal Saline 0.9% IV 200 mls/hr .Post Infusion PRN Administration No Primary IV for Flush ONLY Sodium Chloride 1,000 mls @ 30 mls/hr 03/25/17 20:00 03/27/17 05:05 Normal Saline PRIMARY IV Not Given .Q24H BUNNY Ceftriaxone Sodium 2 gm/ 100 mls @ 200 mls/hr 03/26/17 20:00 03/27/17 20:28 Sodium Chloride IV 200 mls/hr Q24H BUNNY Administration Lidocaine HCl 0.5 ml 03/25/17 16:24 Lidocaine Buffered Inj SUBD ONCE PRN IV Starts Nitroglycerin 1 tab 03/26/17 11:55 Nitrostat Sl 0.4mg Tab SL Q5M PRN Chest Pain Non-Formulary Medication 2 puff 03/26/17 19:00 03/27/17 18:47 Budesonide/Formoterol Fumarate [Symbicort] INH 2 puff RTBID BUNNY Administration Non-Formulary Drug ( 3 tab 03/27/17 09:00 03/27/17 08:28 Trihexyphenidyl Hcl PO 3 tab 2 Mg Tabs) DAILY BUNNY Administration Non-Formulary Drug ( 2 tab 03/26/17 21:00 03/27/17 20:28 Trihexyphenidyl Hcl PO 2 tab 2 Mg Tabs) BEDTIME BUNNY Administration Simvastatin 40 mg 03/26/17 21:00 03/27/17 20:28 Zocor PO 40 mg BEDTIME BUNNY Administration Sodium Chloride 10 - 20 ml 03/25/17 16:24 03/27/17 10:28 Saline Flush IVP 20 ml BID PRN Administration Flush Terazosin HCl 10 mg 03/26/17 21:00 03/27/17 20:29 Hytrin PO 10 mg BEDTIME BUNNY Administration Tiotropium [place] 18 mcg 03/27/17 07:00 03/27/17 06:27 Spiriva Inhalation Cap INH 18 mcg RTDAILY BUNNY Administration Venlafaxine HCl 225 mg 03/27/17 09:00 03/27/17 08:28 Effexor Xr PO 225 mg DAILY BUNNY Administration 8. Time, care, counseling and coordination of care for this discharge is greater than 30 minutes. Exam - Vitals Vital Signs: Vital Signs Temperature 97.0 F Temperature Source Temporal Artery Scan Pulse Rate [Apical] 71 Pulse Rate [Telemetry] 62 Pulse Rate 62 Respiratory Rate 16 Blood Pressure [Left Arm] 107/56 Blood Pressure 91/63 Pulse Ox 94 Oxygen Flow Rate 3.5 Oxygen Delivery Method Nasal Cannula Height 5 ft 9 in Weight 196 lb 1.583 oz - General General Appearance: POSITIVE: No Acute Distress, Cooperative - Head Head Exam: POSITIVE: Normal Inspection, Normocephalic, Atraumatic - Respiratory Respiratory Exam: POSITIVE: Clear to Auscultation - Bilaterally, Breathing Non Labored - Cardiovascular Cardiovascular Exam: POSITIVE: RRR, No Murmur, No Clicks, No Gallops, No Rubs, No JVD - GI/Abdominal GI/Abdominal Exam: POSITIVE: Normal Bowel Sounds, Non Tender, Firm (The patient is markedly distended and tympanic to percussion.) - Rectal Rectal Exam: POSITIVE: Normal Inspection, Normal Rectal Tone Additional Rectal Exam Details: I did not feel any mass on palpation, but the prostate was harder than I would' ve expected. - Exam: POSITIVE: Smith Catheter in Place - Extremities Extremities Exam: POSITIVE: No Clubbing Present, No Edema Present, No Cyanosis Present - Neurological Neurological Exam: POSITIVE: Alert, Oriented x 3, No Facial Droop, Speech Intact / Clear, Moves All Extremities Equally - Central Line Examination Central Line Present on Admission: Yes Central Line Location: Internal jugular (R) (No erythema, intact.) Data Perinent Studies: Laboratory Results 03/25/17 03/25/17 03/25/17 Range/Units 12:32 13:40 13:50 WBC 13.06 H (4.8-10.8) 10^3/uL RBC 4.18 L (4.70-6.10) 10^6/uL Hgb 12.0 L (14.0-18.0) g/dL Hct 36.6 L (42.0-52.0) % MCV 87.6 (80-90) FL MCH 28.7 (27-31) PG MCHC 32.8 L (33-37) g/dL RDW Std Deviation 41.4 (39-50) fL RDW Coeff of Robert 13.2 (11.5-14.5) % Plt Count 200 (140-350) 10*3/uL MPV 8.2 (7.4-12.2) FL Immature Gran % (Auto) 0.5 (0-5) % Neut % (Auto) 89.3 H (50-80) % Lymph % (Auto) 1.6 L (10-50) % Villalba % (Auto) 8.5 (5-15) % Eos % (Auto) 0 (0-8) % Baso % (Auto) 0.1 (0-1) % Immature Gran # (Auto) 0.06 10*3/UL Neut # (Auto) 11.67 10*3/UL Lymph # (Auto) 0.21 10*3/uL [place] # (Auto) 1.11 H (0.3-0.8) 10*3/UL Eos # (Auto) 0 10*3/UL Baso # (Auto) 0.01 10*3/UL Neutrophils % (Manual) (50-80) % Band Neutrophils % (0-10) % Lymphocytes % (Manual) (10-50) % Monocytes % (Manual) (0-12) % Eosinophils % (Manual) (0-8) % Basophils % (Manual) (0-1) % Metamyelocytes % Myelocytes % Promyelocytes % Blast Cells WBC Morphology Comment Normal morphology (NORM) Plt Morphology Comment Normal morphology (NORM) RBC Morph Comment Normal morphology (NORM) PT 11.7 H (9.7-11.4) secs INR 1.10 (0.00-5.90) N/A ABG pH 7.45 (7.35-7.45) ABG pCO2 33 L (34-38) MMHG ABG pO2 102 H (65-75) MMHG ABG HCO3 23 (22-26) ABG Total CO2 24 (23-27) MMOL/L ABG O2 Saturation 98 (90-100) % ABG Base Excess -1 (-2-2) MMOL/L Adria Test Y VBG pH (7.32-7.42) VBG pCO2 (45-55) mmHg VBG HCO3 (22-26) mmol/L VBG Base Excess (-2-2) MMOL/L FiO2 4lpm nc Sodium 134 L (135-145) meq/L Potassium 3.5 L (3.8-5.2) meq/L Chloride 95 L (98-112) meq/L Carbon Dioxide 27 (23-33) meq/L Anion Gap 12 (5-20) BUN 22 (7-22) mg/dL Creatinine 0.9 (0.70-1.50) mg/dL Estimated GFR (>60 ml/min/1.73m(2)) BUN/Creatinine Ratio 24.44 H (6-20) Glucose 111 H (78-110) mg/dL Calculated Osmolality 281.0 (267-292) mOsm/kg Lactic Acid 2.9 H (0.70-2.10) MMOL/L Calcium 9.0 (8.7-10.7) mg/dL Magnesium 1.9 (1.6-2.4) mg/dL Total Bilirubin 0.7 (0.3-1.2) mg/dL AST 26 (21-57) IU/L ALT 17 L (21-72) IU/L Alkaline Phosphatase 62 (38-126) IU/L Total Creatine Kinase 280 H (55-170) IU/L CK-MB (CK-2) 2.60 (0.00-5.00) NG/ML Troponin I 0.038 (< 0.040) ng/mL C-Reactive Protein 17.4 H (0.0-0.9) mg/dL Total Protein 7.1 (6.1-8.0) g/dL Albumin 3.9 (3.5-4.8) g/dL Globulin 3.2 (2.50-4.10) g/dL Albumin/Globulin Ratio 1.20 L (1.3-2.0) mg/g Ur Collection Type Cath specimen Urine Color Red Urine Clarity Turbid (CLEAR) Urine pH >=9.0 (5.0-8.5) Ur Specific [place] 1.010 (1.005-1.030) Urine Protein >300 (NEG) mg/dl Urine Glucose (UA) Negative (NEG) mg/dL Urine Ketones Negative (NEG) Urine Occult Blood Large H (NEG) Urine Nitrate Negative (NEG) Urine Bilirubin Negative (NEG) Urine Urobilinogen 0.2 (0.2) EU/dL Ur Leukocyte Esterase Moderate (NEG) Urine RBC >100 (NONE) /hpf Urine WBC 10-15 (NONE) Ur Squamous Epith Cells None (NONE) Ur Renal Epithelial Cell None (NONE) Urine Crystals Many Urine Bacteria Many (NONE) Urine Casts None (NONE) Urine Mucus None (NONE) Urine Trichomonas None (NONE) Urine Yeast None (NONE) Ur Culture Indicated? Culture set 03/25/17 03/25/17 03/25/17 Range/Units 17:52 17:55 18:09 WBC 11.82 H (4.8-10.8) 10^3/uL RBC 3.58 L (4.70-6.10) 10^6/uL Hgb 10.4 L (14.0-18.0) g/dL Hct 31.7 L (42.0-52.0) % MCV 88.5 (80-90) FL MCH 29.1 (27-31) PG MCHC 32.8 L (33-37) g/dL RDW Std Deviation 41.6 (39-50) fL RDW Coeff of Robert 13.4 (11.5-14.5) % Plt Count 181 (140-350) 10*3/uL MPV 7.7 (7.4-12.2) FL Immature Gran % (Auto) (0-5) % Neut % (Auto) (50-80) % Lymph % (Auto) (10-50) % Villalba % (Auto) (5-15) % Eos % (Auto) (0-8) % Baso % (Auto) (0-1) % Immature Gran # (Auto) 10*3/UL Neut # (Auto) 10*3/UL Lymph # (Auto) 10*3/uL [place] # (Auto) (0.3-0.8) 10*3/UL Eos # (Auto) 10*3/UL Baso # (Auto) 10*3/UL Neutrophils % (Manual) 71 (50-80) % Band Neutrophils % 24 H (0-10) % Lymphocytes % (Manual) 3 L (10-50) % Monocytes % (Manual) 2 (0-12) % Eosinophils % (Manual) 0 (0-8) % Basophils % (Manual) 0 (0-1) % Metamyelocytes % Not Reportable Myelocytes % Not Reportable Promyelocytes % Not Reportable Blast Cells Not Reportable WBC Morphology Comment Normal morphology (NORM) Plt Morphology Comment Normal morphology (NORM) RBC Morph Comment Normal morphology (NORM) PT (9.7-11.4) secs INR (0.00-5.90) N/A ABG pH (7.35-7.45) ABG pCO2 (34-38) MMHG ABG pO2 (65-75) MMHG ABG HCO3 (22-26) ABG Total CO2 (23-27) MMOL/L ABG O2 Saturation (90-100) % ABG Base Excess (-2-2) MMOL/L Adria Test VBG pH 7.42 (7.32-7.42) VBG pCO2 37 L (45-55) mmHg VBG HCO3 24 (22-26) mmol/L VBG Base Excess 0 (-2-2) MMOL/L FiO2 Sodium 135 (135-145) meq/L Potassium 4.0 (3.8-5.2) meq/L Chloride 100 (98-112) meq/L Carbon Dioxide 25 (23-33) meq/L Anion Gap 10 (5-20) BUN 20 (7-22) mg/dL Creatinine 0.8 (0.70-1.50) mg/dL Estimated GFR (>60 ml/min/1.73m(2)) BUN/Creatinine Ratio 25.00 H (6-20) Glucose 110 (78-110) mg/dL Calculated Osmolality 283.0 (267-292) mOsm/kg Lactic Acid 1.5 (0.70-2.10) MMOL/L Calcium 8.4 L (8.7-10.7) mg/dL Magnesium (1.6-2.4) mg/dL Total Bilirubin 0.6 (0.3-1.2) mg/dL AST 23 (21-57) IU/L ALT 21 (21-72) IU/L Alkaline Phosphatase 53 (38-126) IU/L Total Creatine Kinase (55-170) IU/L CK-MB (CK-2) (0.00-5.00) NG/ML Troponin I (< 0.040) ng/mL C-Reactive Protein (0.0-0.9) mg/dL Total Protein 6.1 (6.1-8.0) g/dL Albumin 3.3 L (3.5-4.8) g/dL Globulin 2.8 (2.50-4.10) g/dL Albumin/Globulin Ratio 1.10 L (1.3-2.0) mg/g Ur Collection Type Urine Color Urine Clarity (CLEAR) Urine pH (5.0-8.5) Ur Specific [place] (1.005-1.030) Urine Protein (NEG) mg/dl Urine Glucose (UA) (NEG) mg/dL Urine Ketones (NEG) Urine Occult Blood (NEG) Urine Nitrate (NEG) Urine Bilirubin (NEG) Urine Urobilinogen (0.2) EU/dL Ur Leukocyte Esterase (NEG) Urine RBC (NONE) /hpf Urine WBC (NONE) Ur Squamous Epith Cells (NONE) Ur Renal Epithelial Cell (NONE) Urine Crystals Urine Bacteria (NONE) Urine Casts (NONE) Urine Mucus (NONE) Urine Trichomonas (NONE) Urine Yeast (NONE) Ur Culture Indicated? 03/26/17 03/26/17 03/26/17 Range/Units 06:39 08:00 20:55 WBC 9.81 (4.8-10.8) 10^3/uL RBC 3.48 L (4.70-6.10) 10^6/uL Hgb 9.7 L (14.0-18.0) g/dL Hct 30.8 L (42.0-52.0) % MCV 88.5 (80-90) FL MCH 27.9 (27-31) PG MCHC 31.5 L (33-37) g/dL RDW Std Deviation 41.9 (39-50) fL RDW Coeff of Robert 13.3 (11.5-14.5) % Plt Count 144 (140-350) 10*3/uL MPV 8.2 (7.4-12.2) FL Immature Gran % (Auto) 0.3 (0-5) % Neut % (Auto) 85.2 H (50-80) % Lymph % (Auto) 4.6 L (10-50) % Villalba % (Auto) 9.7 (5-15) % Eos % (Auto) 0.1 (0-8) % Baso % (Auto) 0.1 (0-1) % Immature Gran # (Auto) 0.03 10*3/UL Neut # (Auto) 8.36 10*3/UL Lymph # (Auto) 0.45 10*3/uL Villalba # (Auto) 0.95 H (0.3-0.8) 10*3/UL Eos # (Auto) 0.01 10*3/UL Baso # (Auto) 0.01 10*3/UL Neutrophils % (Manual) (50-80) % Band Neutrophils % (0-10) % Lymphocytes % (Manual) (10-50) % Monocytes % (Manual) (0-12) % Eosinophils % (Manual) (0-8) % Basophils % (Manual) (0-1) % Metamyelocytes % Myelocytes % Promyelocytes % Blast Cells WBC Morphology Comment Normal morphology (NORM) Plt Morphology Comment Normal morphology (NORM) RBC Morph Comment Normal morphology (NORM) PT 10.9 (9.7-11.4) secs INR 1.03 (0.00-5.90) N/A ABG pH (7.35-7.45) ABG pCO2 (34-38) MMHG ABG pO2 (65-75) MMHG ABG HCO3 (22-26) ABG Total CO2 (23-27) MMOL/L ABG O2 Saturation (90-100) % ABG Base Excess (-2-2) MMOL/L Adria Test VBG pH (7.32-7.42) VBG pCO2 (45-55) mmHg VBG HCO3 (22-26) mmol/L VBG Base Excess (-2-2) MMOL/L FiO2 Sodium 135 (135-145) meq/L Potassium 3.4 L (3.8-5.2) meq/L Chloride 106 (98-112) meq/L Carbon Dioxide 23 (23-33) meq/L Anion Gap 6 (5-20) BUN 16 (7-22) mg/dL Creatinine 0.7 (0.70-1.50) mg/dL Estimated GFR (>60 ml/min/1.73m(2)) BUN/Creatinine Ratio 22.85 H (6-20) Glucose 109 (78-110) mg/dL Calculated Osmolality 281.0 (267-292) mOsm/kg Lactic Acid 1.0 (0.70-2.10) MMOL/L Calcium 8.0 L (8.7-10.7) mg/dL Magnesium 1.9 (1.6-2.4) mg/dL Total Bilirubin 0.5 (0.3-1.2) mg/dL AST 24 (21-57) IU/L ALT 26 (21-72) IU/L Alkaline Phosphatase 51 (38-126) IU/L Total Creatine Kinase (55-170) IU/L CK-MB (CK-2) (0.00-5.00) NG/ML Troponin I (< 0.040) ng/mL C-Reactive Protein (0.0-0.9) mg/dL Total Protein 5.8 L (6.1-8.0) g/dL Albumin 3.0 L (3.5-4.8) g/dL Globulin 2.8 (2.50-4.10) g/dL Albumin/Globulin Ratio 1.00 L (1.3-2.0) mg/g Ur Collection Type Cath specimen Urine Color Red Urine Clarity Slightly cloudy (CLEAR) Urine pH 7.0 (5.0-8.5) Ur Specific [place] 1.015 (1.005-1.030) Urine Protein 100 (NEG) mg/dl Urine Glucose (UA) Negative (NEG) mg/dL Urine Ketones Negative (NEG) Urine Occult Blood Large H (NEG) Urine Nitrate Negative (NEG) Urine Bilirubin Negative (NEG) Urine Urobilinogen 0.2 (0.2) EU/dL Ur Leukocyte Esterase Large (NEG) Urine RBC 25-40 (NONE) /hpf Urine WBC 10-15 (NONE) Ur Squamous Epith Cells None (NONE) Ur Renal Epithelial Cell None (NONE) Urine Crystals None Urine Bacteria None (NONE) Urine Casts None (NONE) Urine Mucus Rare (NONE) Urine Trichomonas None (NONE) Urine Yeast None (NONE) Ur Culture Indicated? Culture set Patient Problems - Patient Problem List (1) UTI (urinary tract infection) due to urinary indwelling Smith catheter Current Visit: Yes Status: Acute Qualifiers: Indwelling urinary catheter type: indwelling urethral catheter Encounter type: subsequent encounter Qualified Description: Urinary tract infection associated with indwelling urethral catheter, subsequent encounter Qualifier Code(s): (T83.511D) Infection and inflammatory reaction due to indwelling urethral catheter, subsequent encounter, (N39.0) Urinary tract infection, site not specified (2) Hydronephrosis Current Visit: Yes Status: Acute (3) Ureteral calculi Current Visit: Yes Status: Acute (4) Rectal inflammation Current Visit: Yes Status: Acute (5) Sepsis due to urinary tract infection Current Visit: Yes Status: Resolved Priority: High (6) Sepsis associated hypotension Current Visit: Yes Status: Resolved (7) Chronic back pain Current Visit: No Status: Chronic Qualifiers: Back pain location: low back pain (8) BPH (benign prostatic hypertrophy) with urinary obstruction Current Visit: No Status: Acute (9) Compression fracture Current Visit: Yes Status: Chronic (10) Hypertension Current Visit: Yes Status: Chronic Qualifiers: Hypertension type: essential hypertension Qualified Description: Essential hypertension Qualifier Code(s): (I10) Essential (primary) hypertension (11) Lung nodule Current Visit: Yes Status: Chronic (12) Coronary artery disease Current Visit: Yes Status: Chronic Qualifiers: Coronary Disease-Associated Artery/Lesion type: [place] artery [place] vs. transplanted heart: [place] heart Associated angina: without angina Qualified Description: Coronary artery disease involving [place] coronary artery of [place] heart without angina pectoris Qualifier Code(s): (I25.10) Atherosclerotic heart disease of [place] coronary artery without angina pectoris
== END 2017-03-27 21:09 | disposition short-term general hospital (02) | DRG 690 ==
LOC: ER 12:23 → MED/SURG 15:23 → ICU 16:24
PROVIDERS: ADMIT Family Medicine; ATTEND Family Medicine
DX: A41.9 Sepsis, unspecified organism (principal); I95.9 Hypotension, unspecified; R47.81 Slurred speech; R41.0 Disorientation, unspecified; N28.86 Ureteritis cystica; N20.1 Calculus of ureter; N13.30 Unspecified hydronephrosis; K62.89 Other specified diseases of anus and rectum; N40.0 Benign prostatic hyperplasia without lower urinary tract symptoms; N13.9 Obstructive and reflux uropathy, unspecified; I10 Essential (primary) hypertension; R91.1 Solitary pulmonary nodule; I25.10 Atherosclerotic heart disease of native coronary artery without angina pectoris
CPT/HCPCS: 36415; 36600; 70450; 71010; 80053; 81001; 81003; 82550; 82553; 82803; 83605; 83735; 84484; 85025; 85610; 86140; 87040; 87077; 87088; 87186 ×2; 93005; 93010; 96361; 96365; 96367; 99291 ×2; J0131; J1335; 74177; 85007; 94640; 94761; J0696; J0698; J1650; J7030; J7040; J7050; J7060